=== PATIENT | male | born 1990 | race Caucasian/White ===

== ENCOUNTER 2017-09-01 21:08 | Emergency (ER) | payer OTHER ==
[2017-09-01 21:13] VITALS: BP 130/85; PULSE 83; RESP 18; TEMP 98.5
--- NOTE | 2017-09-01 22:00 | ED ---
General Adult HPI - General Chief complaint: Skin/Abscess/Foreign Body Stated complaint: Rash Time Seen by Provider: 09/01/17 21:40 Source: patient, RN notes reviewed Mode of arrival: ambulatory Limitations: no limitations - History of Present Illness Initial comments: Patient 27-year-old male presents to the emergency room today with chief complaint of redness swelling to the right side of the forehead. He doesn't that it started day and a half ago. Patient states that it's locally tender. It is there now spread to the hairline. Patient states these areas are not tender. He states started to feel itchy. He denies ever having similar the past. Patient denies any recent fever, chills, shortness of breath, chest pain, back pain, abdominal pain, nausea or vomiting, numbness or tingling, dysuria or hematuria, constipation or diarrhea, headaches or visual changes, or any other complaints. - Related Data Home Medications Medication Instructions Recorded Confirmed metFORMIN HCL [Glucophage] 500 mg PO DAILY 03/02/17 03/02/17 Previous Rx's Medication Instructions Recorded Ondansetron Odt [Zofran ODT] 4 mg PO Q8HR PRN #10 tab 03/02/17 Sulfamethox-Tmp 800-160Mg [Bactrim 1 tab PO Q12HR #20 tab 09/01/17 DS 800-160 mg] Allergies Allergy/AdvReac Type Severity Reaction Status Date / Time No Known Allergies Allergy Verified 09/01/17 21:13 Review of Systems ROS Statement: Those systems with pertinent positive or pertinent negative responses have been documented in the HPI. ROS Other: All systems not noted in ROS Statement are negative. Past Medical History Past Medical History: Diabetes Mellitus, GERD/Reflux History of Any Multi-Drug Resistant Organisms: None Reported Past Surgical History: No Surgical Hx Reported Past Psychological History: No Psychological Hx Reported Smoking Status: Current every day smoker Past Alcohol Use History: None Reported Past Drug Use History: None Reported General Exam - General Exam Comments Initial Comments: General: The patient is awake and alert, in no distress, and does not appear acutely ill. Eye: Pupils are equal, round and reactive to light, extra-ocular movements are intact. No nystagmus. There is normal conjunctiva bilaterally. No signs of icterus. Ears, nose, mouth and throat: There are moist mucous membranes and no oral lesions. Neck: The neck is supple, there is no tenderness or JVD. Musculoskeletal: Normal ROM, no tenderness. Strength 5/5. Sensation intact. Pulses equal bilaterally 2+. Neurological: A&O x 3. CN II-XII intact, There are no obvious motor or sensory deficits. Coordination appears grossly intact. Speech is normal. Skin: There is erythema to the right side of the forehead measuring approximately 2 x 2 centimeters. There is some swelling with yellow crusting over top. There is nontender. Few scattered spot into the hairline on the right. Psychiatric: Cooperative, appropriate mood & affect, normal judgment. Limitations: no limitations Course Vital Signs 09/01/17 21:09 Temperature 98.5 F Pulse Rate 83 Respiratory 18 Rate Blood Pressure 130/85 O2 Sat by Pulse 100 Oximetry Medical Decision Making - Medical Decision Making Signs and symptoms of early shingles were also discussed with the patient. Area is nontender. Supple to suspect impetigo and will be started on antibiotics. Disposition Clinical Impression: Impetigo Disposition: HOME SELF-CARE Condition: Good Instructions: Impetigo (ED) Additional Instructions: Please use medication as discussed. Please follow-up with family doctor in the next 2 days of symptoms have not improved. Please return to emergency room if the symptoms increase or worsen or for any other concerns. Prescriptions: Sulfamethox-Tmp 800-160Mg [Bactrim DS 800-160 mg] 1 tab PO Q12HR #20 tab Is patient prescribed a controlled substance at d/c from ED?: No Referrals: Chuckie Marquez MD [Primary Care Provider] - 1-2 days Time of Disposition: 21:58
== END 2017-09-01 22:08 | disposition home or self-care (01) ==
LOC: EC 21:08
DX: L01.00 Impetigo, unspecified (principal); E11.9 Type 2 diabetes mellitus without complications; F17.200 Nicotine dependence, unspecified, uncomplicated; Z79.84 Long term (current) use of oral hypoglycemic drugs
CPT/HCPCS: 99282

== ENCOUNTER 2017-09-13 19:47 | Emergency (ER) | payer OTHER ==
[2017-09-13 19:56] VITALS: BP 127/66; PULSE 82; RESP 18; TEMP 98.4
[2017-09-13] MEDS ORDERED: KETOROLAC 60 MG/2 ML VIAL IM STA (20:11)
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
--- NOTE | 2017-09-13 20:30 | XR ---
EXAMINATION TYPE: XR elbow complete LT DATE OF EXAM: 09/13/2017 COMPARISON: NONE HISTORY: Elbow pain TECHNIQUE: 3 views FINDINGS: I see no fracture nor dislocation. Joint spaces are normal. There is no sign of elbow joint effusion. IMPRESSION: Negative left elbow exam.
== END 2017-09-13 21:07 | disposition home or self-care (01) ==
LOC: EC 19:47
DX: S50.02XA Contusion of left elbow, initial encounter (principal); E11.9 Type 2 diabetes mellitus without complications; F17.200 Nicotine dependence, unspecified, uncomplicated; Z79.84 Long term (current) use of oral hypoglycemic drugs; W01.0XXA Fall on same level from slipping, tripping and stumbling without subsequent striking against object, initial encounter; Y93.01 Activity, walking, marching and hiking
CPT/HCPCS: 73080; 99283; 96372; J1885

== ENCOUNTER 2017-10-20 16:12 | Emergency (ER) | payer OTHER ==
[2017-10-20 16:26] VITALS: RESP 16
[2017-10-20] MEDS ORDERED: SODIUM CHLORIDE 0.9% 500 ML IV STA (16:30)
[2017-10-20] MEDS ORDERED: SODIUM CHLORIDE 0.9% 1,000 ML IV STA (16:30)
[2017-10-20] MEDS ORDERED: KETOROLAC 30 MG/ML 1 ML VIAL IVP STA (16:36)
--- NOTE | 2017-10-20 16:39 | ED ---
Syncope HPI - General Chief Complaint: Syncope Stated Complaint: SYNCOPE Time Seen by Provider: 10/20/17 16:24 Source: patient, EMS Mode of arrival: EMS Limitations: no limitations - History of Present Illness Initial Comments: 27 years old male has abdominal pain he fell today and he passed out he didn't hit his head against a hard surface according to the EMS he was totally out he be responding to sternal rub for 3-4 minutes after arrival to the ER he is awake alert he is answering questions appropriately he still complaining about pain in the abdomen it's more so on the right side of the abdomen actually is complaining about the pain in the lower abdomen right lower quadrant area and the left lower quadrant area. Been nauseous no vomiting he has no history of surgical interventions of the abdomen - Related Data Home Medications Medication Instructions Recorded Confirmed No Known Home Medications 10/20/17 10/20/17 Allergies Allergy/AdvReac Type Severity Reaction Status Date / Time No Known Allergies Allergy Verified 10/20/17 16:56 Review of Systems ROS Statement: Those systems with pertinent positive or pertinent negative responses have been documented in the HPI. ROS Other: All systems not noted in ROS Statement are negative. Past Medical History Past Medical History: Diabetes Mellitus, GERD/Reflux History of Any Multi-Drug Resistant Organisms: None Reported Past Surgical History: No Surgical Hx Reported Past Psychological History: No Psychological Hx Reported Smoking Status: Current every day smoker Past Alcohol Use History: None Reported Past Drug Use History: None Reported General Exam Limitations: no limitations Course Vital Signs 10/20/17 10/20/17 16:19 16:56 Temperature 99.4 F Pulse Rate 84 94 Respiratory 16 16 Rate Blood Pressure 141/73 120/57 O2 Sat by Pulse 100 99 Oximetry Labs are reviewed along with the imaging head CT is normal CT of the abdomen is on unremarkable as well his C-reactive protein is bit elevated compress metabolic panel is normal chest x-ray ruled out any pneumonia these findings are discussed with the patient he be discharged to follow with family doctor or return to ER if he notices worsening of the symptoms EKG Findings - EKG Comments: EKG Findings:: EKG is normal sinus ventricular rate is 88 AL interval is 174 QRS duration is 1 of 4 QT/QTC 364/440 review of this EKG does not reveal any ST elevation or ST depression Medical Decision Making - Lab Data Result diagrams: 10/20/17 16:25 10/20/17 16:25 Lab Results 10/20/17 10/20/17 10/20/17 Range/Units 16:25 16:25 16:25 WBC 12.9 H (3.8-10.6) k/uL RBC 5.62 (4.30-5.90) m/uL Hgb 16.3 (13.0-17.5) gm/dL Hct 48.4 (39.0-53.0) % MCV 86.1 (80.0-100.0) fL MCH 29.0 (25.0-35.0) pg MCHC 33.7 (31.0-37.0) g/dL RDW 12.1 (11.5-15.5) % Plt Count 268 (150-450) k/uL Neutrophils % 83 % Lymphocytes % 8 % Monocytes % 6 % Eosinophils % 2 % Basophils % 0 % Neutrophils # 10.7 H (1.3-7.7) k/uL Lymphocytes # 1.0 (1.0-4.8) k/uL Monocytes # 0.8 (0-1.0) k/uL Eosinophils # 0.3 (0-0.7) k/uL Basophils # 0.0 (0-0.2) k/uL PT (9.0-12.0) sec INR (<1.2) APTT (22.0-30.0) sec Sodium 135 L (137-145) mmol/L Potassium 4.0 (3.5-5.1) mmol/L Chloride 99 (98-107) mmol/L Carbon Dioxide 27 (22-30) mmol/L Anion Gap 9 mmol/L BUN 10 (9-20) mg/dL Creatinine 0.77 (0.66-1.25) mg/dL Est GFR (CKD-EPI)AfAm >90 (>60 ml/min/1.73 sqM) Est GFR (CKD-EPI)NonAf >90 (>60 ml/min/1.73 sqM) Glucose 219 H (74-99) mg/dL Plasma Lactic Acid Jesu (0.7-2.0) mmol/L Calcium 9.0 (8.4-10.2) mg/dL Total Bilirubin 1.0 (0.2-1.3) mg/dL AST 22 (17-59) U/L ALT 41 (21-72) U/L Alkaline Phosphatase 96 (38-126) U/L Total Creatine Kinase 86 (55-170) U/L CK-MB (CK-2) 0.6 (0.0-2.4) ng/mL CK-MB (CK-2) Rel Index 0.7 Troponin I <0.012 (0.000-0.034) ng/mL C-Reactive Protein (<10.0) mg/L Total Protein 6.8 (6.3-8.2) g/dL Albumin 4.5 (3.5-5.0) g/dL 10/20/17 10/20/17 10/20/17 Range/Units 16:25 16:25 16:25 WBC (3.8-10.6) k/uL RBC (4.30-5.90) m/uL Hgb (13.0-17.5) gm/dL Hct (39.0-53.0) % MCV (80.0-100.0) fL MCH (25.0-35.0) pg MCHC (31.0-37.0) g/dL RDW (11.5-15.5) % Plt Count (150-450) k/uL Neutrophils % % Lymphocytes % % Monocytes % % Eosinophils % % Basophils % % Neutrophils # (1.3-7.7) k/uL Lymphocytes # (1.0-4.8) k/uL Monocytes # (0-1.0) k/uL Eosinophils # (0-0.7) k/uL Basophils # (0-0.2) k/uL PT 10.0 (9.0-12.0) sec INR 1.0 (<1.2) APTT 22.6 (22.0-30.0) sec Sodium (137-145) mmol/L Potassium (3.5-5.1) mmol/L Chloride (98-107) mmol/L Carbon Dioxide (22-30) mmol/L Anion Gap mmol/L BUN (9-20) mg/dL Creatinine (0.66-1.25) mg/dL Est GFR (CKD-EPI)AfAm (>60 ml/min/1.73 sqM) Est GFR (CKD-EPI)NonAf (>60 ml/min/1.73 sqM) Glucose (74-99) mg/dL Plasma Lactic Acid Jesu 1.9 (0.7-2.0) mmol/L Calcium (8.4-10.2) mg/dL Total Bilirubin (0.2-1.3) mg/dL AST (17-59) U/L ALT (21-72) U/L Alkaline Phosphatase (38-126) U/L Total Creatine Kinase (55-170) U/L CK-MB (CK-2) (0.0-2.4) ng/mL CK-MB (CK-2) Rel Index Troponin I (0.000-0.034) ng/mL C-Reactive Protein 18.6 H (<10.0) mg/L Total Protein (6.3-8.2) g/dL Albumin (3.5-5.0) g/dL Disposition Clinical Impression: Syncope, Fall, Abdominal pain Disposition: HOME SELF-CARE Instructions: Abdominal Pain (ED) Additional Instructions: Tylenol 1 g by mouth every 6 hours when necessary Is patient prescribed a controlled substance at d/c from ED?: No Referrals: Chuckie Marquez MD [Primary Care Provider] - 1-2 days
[2017-10-20 16:42] LABS: Basophils % (A) 0 %; Eosinophils # (A) 0.3 k/uL (0-0.7); Eosinophils % (A) 2 %; HCT 48.4 % (39.0-53.0); HGB 16.3 gm/dL (13.0-17.5); Lymphocytes % (A) 8 %; MCHC 33.7 g/dL (31.0-37.0); MCV 86.1 fL (80.0-100.0); Mean Platelet Volume 6.5; Monocytes # (A) 0.8 k/uL (0-1.0); Monocytes % (A) 6 %; Neutrophils # (A) 10.7 k/uL (1.3-7.7); Neutrophils % (A) 83 %; Platelet Count 268 k/uL (150-450); RBC 5.62 m/uL (4.30-5.90); RDW 12.1 % (11.5-15.5); WBC 12.9 k/uL (3.8-10.6)
[2017-10-20 16:51] LABS: Partial Thromboplastin Time 22.6 sec (22.0-30.0)
[2017-10-20 16:54] LABS: ALT 41 U/L (21-72); AST 22 U/L (17-59); Albumin 4.5 g/dL (3.5-5.0); Alkaline Phosphatase 96 U/L (38-126); Anion Gap 9 mmol/L; Blood Urea Nitrogen 10 mg/dL (9-20); Carbon Dioxide 27 mmol/L (22-30); Chloride 99 mmol/L (98-107); Glucose 219 mg/dL (74-99); Sodium 135 mmol/L (137-145); Total Protein 6.8 g/dL (6.3-8.2)
[2017-10-20 16:57] LABS: Creatine Kinase 86 U/L (55-170)
[2017-10-20 17:10] LABS: Creatine Kinase MB 0.6 ng/mL (0.0-2.4); Troponin I <0.012 ng/mL (0.000-0.034)
--- NOTE | 2017-10-20 17:53 | CT ---
EXAMINATION TYPE: CT brain wo con DATE OF EXAM: 10/20/2017 COMPARISON: None HISTORY: Headache x [address] DLP: 1171 mGycm. Automated Exposure Control for Dose Reduction was Utilized. TECHNIQUE: CT scan of the head is performed without contrast. FINDINGS: Multiple axial sections were obtained of the brain with no contrast. Ventricles and sulci appear normal. There is no mass effect nor midline shift. There is no sign of in tracranial hemorrhage. The calvarium is intact. Impression negative CT scan of the brain.
--- NOTE | 2017-10-20 17:57 | CT ---
EXAMINATION TYPE: CT abdomen pelvis w con DATE OF EXAM: 10/20/2017 COMPARISON: 03/02/2017 HISTORY: Generalized abdominal pain x [address] DLP: 1246 mGycm Automated exposure control for dose reduction was used. TECHNIQUE: Helical acquisition of images was performed from the lung bases through the pelvis. CONTRAST: Performed without Oral Contrast and with IV Contrast, patient injected with 100 mL of Isovue 300. FINDINGS: There is mild interstitial density at the posterior lung bases. There is no pleural effusion. There i s decreased density throughout the liver consistent with fatty infiltration. The bile ducts are not d ilated. Gallbladder appears normal. Spleen and pancreas appear normal. There is no adrenal mass. Kidneys show satisfactory contrast opacification. There is no hydronephrosi s. There is one semicircular cortical cyst medial right kidney. There is no retroperitoneal adenopath y. There is no ascites. The appendix appears normal. There is no intestinal wall thickening. There ar e no dilated loops. Bladder distends smoothly. There is no pelvic mass. Bony structures are intact. IMPRESSION: NORMAL APPENDIX. FATTY INFILTRATION OF THE LIVER. NO ADVERSE CHANGE COMPARED TO OLD EXAM.
--- NOTE | 2017-10-20 17:58 | XR ---
EXAMINATION TYPE: XR chest 2V DATE OF EXAM: 10/20/2017 COMPARISON: 12/27/2012 HISTORY: Syncope TECHNIQUE: Frontal and lateral views of the chest are obtained. FINDINGS: Heart and mediastinum are normal. Lungs are clear. Diaphragm is normal. Bony thorax is int act. The pulmonary vascularity is normal. IMPRESSION: Normal chest. No change.
[2017-10-20 19:10] VITALS: BP 132/68; PULSE 68; TEMP 98.3
== END 2017-10-20 19:10 | disposition home or self-care (01) ==
LOC: EC 16:12
DX: R55 Syncope and collapse (principal); R10.31 Right lower quadrant pain; R10.32 Left lower quadrant pain; F17.200 Nicotine dependence, unspecified, uncomplicated; W19.XXXA Unspecified fall, initial encounter
CPT/HCPCS: 99285; 36415; 93005; 80053; 82550; 82553; 83605; 84484; 85025; 85610; 85730; 86140; 87040; 71046; 70450; 74177; 96374; 96361 ×3; J1885; Q9967

== ENCOUNTER 2018-01-13 14:57 | Emergency (ER) | payer OTHER ==
[2018-01-13 15:12] LABS: Glucose,Whole Blood 293 mg/dL (75-99)
[2018-01-13] MEDS ORDERED: SODIUM CHLORIDE 0.9% 1,000 ML IV ONE (15:15)
--- NOTE | 2018-01-13 15:23 | ED ---
Chest Pain HPI - General Chief Complaint: Chest Pain Stated Complaint: CHEST PAIN Time Seen by Provider: 01/13/18 15:06 Source: patient, EMS, RN notes reviewed Mode of arrival: EMS Limitations: no limitations - History of Present Illness Initial Comments: [id number] male presents emergency Department chief complaint of right-sided chest pain a 1 hour prior arrival. Patient states that nothing makes the pain worse he denies any pleuritic chest pain or shortness of breath. Patient states that he believes he is having a heart attack and he points to the right side of his chest stating that his heart is hurting. Patient denies any nausea , vomiting, diarrhea constipation. Denies fevers or chills no URI symptoms. Patient states he presses over the chest it does worsen. Patient states he has no cardiac history he has a known diabetic which she states is now is well- controlled. Patient denies any family history of early cardiac disease. - Related Data Home Medications Medication Instructions Recorded Confirmed metFORMIN HCL 1,000 mg PO DAILY 01/13/18 01/13/18 Allergies Allergy/AdvReac Type Severity Reaction Status Date / Time No Known Allergies Allergy Verified 01/13/18 15:25 Review of Systems ROS Statement: Those systems with pertinent positive or pertinent negative responses have been documented in the HPI. ROS Other: All systems not noted in ROS Statement are negative. EKG Findings - EKG Comments: EKG Findings:: EKG performed at 15:07 normal sinus rhythm with a rate of 87 CA 162 QRS 106 QT/QTC 380/466 Past Medical History Past Medical History: Diabetes Mellitus, GERD/Reflux History of Any Multi-Drug Resistant Organisms: None Reported Past Surgical History: No Surgical Hx Reported Past Psychological History: No Psychological Hx Reported Smoking Status: Current every day smoker Past Alcohol Use History: None Reported Past Drug Use History: None Reported General Exam Limitations: no limitations General appearance: alert, in no apparent distress Head exam: Present: atraumatic, normocephalic, normal inspection Eye exam: Present: normal appearance, PERRL, EOMI. Absent: scleral icterus, conjunctival injection, periorbital swelling ENT exam: Present: normal exam, normal oropharynx, mucous membranes moist Neck exam: Present: normal inspection. Absent: tenderness, meningismus, lymphadenopathy Respiratory exam: Present: normal lung sounds bilaterally, chest wall tenderness. Absent: respiratory distress, wheezes, rales, rhonchi, stridor Cardiovascular Exam: Present: regular rate, normal rhythm, normal heart sounds. Absent: systolic murmur, diastolic murmur, rubs, gallop, clicks GI/Abdominal exam: Present: soft, normal bowel sounds. Absent: distended, tenderness, guarding, rebound, rigid Neurological exam: Present: alert, oriented X3, CN II-XII intact Skin exam: Present: warm, dry, intact, normal color. Absent: rash Course Vital Signs 01/13/18 01/13/18 01/13/18 14:58 15:07 16:51 Temperature 99.7 F H 97.8 F Pulse Rate 86 80 Pulse Rate [ 90 [place] Head ] Respiratory 18 16 Rate Blood Pressure 135/85 126/85 O2 Sat by Pulse 100 100 Oximetry Chest Pain MDM - MDM 27-year-old male presented emergency from for right-sided chest pain. Patient stated he felt like he was having a heart attack he has no cardiac history is known diabetic. Patient has only right-sided chest pain which is slightly reproducible. Patient had EKG, lab work which did show mild hyperglycemia otherwise no other abnormality's. Patient's chest pain is atypical and felt not to be cardiac in nature. Patient be discharged advised take anti- inflammatories and follow-up with PCP return parameters were discussed. Disposition Clinical Impression: Atypical chest pain, Chest wall pain Disposition: HOME SELF-CARE Condition: Stable Instructions: Chest Pain (ED) Additional Instructions: Please return to the Emergency Department if symptoms worsen or any other concerns. Is patient prescribed a controlled substance at d/c from ED?: No Referrals: Chuckie Marquez MD [Primary Care Provider] - 1-2 days Time of Disposition: 17:15
[2018-01-13 15:30] LABS: Basophils # (A) 0.1 k/uL (0-0.2); Basophils % (A) 1 %; Eosinophils # (A) 0.1 k/uL (0-0.7); Eosinophils % (A) 1 %; HCT 47.1 % (39.0-53.0); HGB 15.6 gm/dL (13.0-17.5); Lymphocytes # (A) 2.2 k/uL (1.0-4.8); Lymphocytes % (A) 23 %; MCH 29.5 pg (25.0-35.0); MCHC 33.1 g/dL (31.0-37.0); MCV 89.2 fL (80.0-100.0); Mean Platelet Volume 6.4; Monocytes # (A) 0.6 k/uL (0-1.0); Monocytes % (A) 6 %; Neutrophils # (A) 6.2 k/uL (1.3-7.7); Neutrophils % (A) 68 %; Platelet Count 297 k/uL (150-450); RBC 5.28 m/uL (4.30-5.90); WBC 9.2 k/uL (3.8-10.6)
[2018-01-13 15:41] LABS: ALT 42 U/L (21-72); AST 29 U/L (17-59); Albumin 4.8 g/dL (3.5-5.0); Alkaline Phosphatase 83 U/L (38-126); Anion Gap 10 mmol/L; Blood Urea Nitrogen 11 mg/dL (9-20); Calcium 9.6 mg/dL (8.4-10.2); Carbon Dioxide 23 mmol/L (22-30); Chloride 102 mmol/L (98-107); Glucose 301 mg/dL (74-99); Lipase 131 U/L (23-300); Potassium 4.4 mmol/L (3.5-5.1); Sodium 135 mmol/L (137-145); Total Bilirubin 0.8 mg/dL (0.2-1.3); Total Protein 7.5 g/dL (6.3-8.2)
--- NOTE | 2018-01-13 16:06 | XR ---
EXAMINATION TYPE: XR chest 2V DATE OF EXAM: 01/13/2018 COMPARISON: 10/20/2017 INDICATION: History of CT, chest pain TECHNIQUE: Frontal and lateral views of the chest are obtained. FINDINGS: The heart size is normal. The pulmonary vasculature is normal. The lungs are clear. IMPRESSION: 1. No acute pulmonary process.
[2018-01-13 16:52] VITALS: BP 126/85; PULSE 80; RESP 16; TEMP 97.8
[2018-01-13 17:04] LABS: Amphetamine Screen,Urine Not Detected (NotDetected); Barbiturate Screen,Urine Not Detected (NotDetected); Benzodiazepines Screen,Urine Not Detected (NotDetected); Cocaine Screen,Urine Not Detected (NotDetected); Methadone Screen, Urine Not Detected (NotDetected); Opiate Screen,Urine Not Detected (NotDetected); Oxycodone Screen, Urine Not Detected (NotDetected); Phencyclidine Screen,Urine Not Detected (NotDetected); Tricyclic Antidepressant,Urine Not Detected (NotDetected); Urn Cannabinoid Scrn Not Detected (NotDetected)
[2018-01-13 17:15] LABS: Glucose,Whole Blood 267 mg/dL (75-99)
== END 2018-01-13 17:27 | disposition home or self-care (01) ==
LOC: EC 14:57
DX: R07.89 Other chest pain (principal); E11.65 Type 2 diabetes mellitus with hyperglycemia; F17.200 Nicotine dependence, unspecified, uncomplicated; Z79.84 Long term (current) use of oral hypoglycemic drugs
CPT/HCPCS: 36415; 71046; 80053; 80306; 83690; 84484; 85025; 93005; 96360; 99285

== ENCOUNTER 2018-02-01 17:44 | Emergency (ER) | payer OTHER ==
--- NOTE | 2018-02-01 19:46 | XR ---
PROCEDURE: XR knee complete RT 3V DATE AND TIME: 02/01/2018 6:59 PM CLINICAL INDICATION: Injury, Pain TECHNIQUE: Department protocol. 3V COMPARISON: 01/21/2018 FINDINGS: There is no fracture or malalignment. The soft tissues are unremarkable. IMPRESSION: NO ACUTE PROCESS.
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
[2018-02-01 19:55] VITALS: BP 122/73; PULSE 80; RESP 15; TEMP 97.8
== END 2018-02-01 20:08 | disposition home or self-care (01) ==
LOC: EC 17:44
DX: S80.01XA Contusion of right knee, initial encounter (principal); E11.9 Type 2 diabetes mellitus without complications; F17.200 Nicotine dependence, unspecified, uncomplicated; Z79.4 Long term (current) use of insulin; V89.2XXA Person injured in unspecified motor-vehicle accident, traffic, initial encounter; Y92.410 Unspecified street and highway as the place of occurrence of the external cause
CPT/HCPCS: 99284

== ENCOUNTER 2018-04-18 22:02 | Emergency (ER) | payer OTHER ==
[2018-04-18 22:25] VITALS: BP 145/76; PULSE 87; RESP 20; TEMP 98.6
[2018-04-18] MEDS ORDERED: ACET/COD 300 MG/30 MG STARTER PACK 6 TAB BTL PO STA (23:40)
[2018-04-18] MEDS ORDERED: IBUPROFEN 400 MG TAB PO STA (23:40)
[2018-04-18] MEDS ORDERED: PENICILLIN VK 500MG STARTER 4 TAB BTL PO STA (23:40)
[2018-04-18] MEDS ORDERED: Acetaminophen-Codeine 300-30mg TAB PO STA (23:40)
[2018-04-18] MEDS ORDERED: PENICILLIN V POTASSIUM 250 MG TAB PO STA (23:40)
--- NOTE | 2018-04-18 23:41 | ED ---
ENT HPI - General Chief complaint: Dental/Oral Stated complaint: dental Time Seen by Provider: 04/18/18 23:17 Source: patient, family, RN notes reviewed, old records reviewed Mode of arrival: ambulatory Limitations: no limitations - History of Present Illness Initial comments: This is a 27-year-old male the ER for evaluation presents today for evaluation of dental pain. Patient has history of dental caries and dental abscess. Patient presents today with for pain control, denies fever. Patient has no other complaints MD complaint: tooth pain -: days(s) Location: other (Right side of mouth) Severity: moderate Severity scale (1-10): 4 Quality: aching Consistency: constant Improves with: none Worsens with: none Context-Epistaxis: other Context- Dental: history of dental caries, poor dental care Context- Ear: other (None) Associated Symptoms: gum swelling, toothache - Related Data Home Medications Medication Instructions Recorded Confirmed metFORMIN HCL 1,000 mg PO BID 01/13/18 02/01/18 Insulin Degludec [Tresiba 20 unit SQ HS 01/21/18 02/01/18 Flextouch U-100] sitaGLIPtin [Januvia] 100 mg PO DAILY 01/21/18 02/01/18 Previous Rx's Medication Instructions Recorded Ibuprofen [Motrin] 600 mg PO Q8HR PRN #30 tab 02/01/18 Naproxen [Naprosyn] 500 mg PO Q12HR #30 tab 04/18/18 Penicillin V Potassium [Pen Vee K] 500 mg PO QID #40 tablet 04/18/18 Allergies Allergy/AdvReac Type Severity Reaction Status Date / Time No Known Allergies Allergy Verified 04/18/18 22:24 Review of Systems ROS Statement: Those systems with pertinent positive or pertinent negative responses have been documented in the HPI. ROS Other: All systems not noted in ROS Statement are negative. Past Medical History Past Medical History: Diabetes Mellitus, GERD/Reflux History of Any Multi-Drug Resistant Organisms: None Reported Past Surgical History: No Surgical Hx Reported Past Psychological History: No Psychological Hx Reported Smoking Status: Current every day smoker Past Alcohol Use History: None Reported Past Drug Use History: None Reported General Exam Limitations: no limitations General appearance: alert, in no apparent distress Head exam: Present: atraumatic, normocephalic, normal inspection Eye exam: Present: normal appearance, PERRL, EOMI. Absent: scleral icterus, conjunctival injection, periorbital swelling ENT exam: Present: normal exam, mucous membranes moist Neck exam: Present: normal inspection. Absent: tenderness, meningismus, lymphadenopathy Respiratory exam: Present: normal lung sounds bilaterally. Absent: respiratory distress, wheezes, rales, rhonchi, stridor Cardiovascular Exam: Present: regular rate, normal rhythm, normal heart sounds. Absent: systolic murmur, diastolic murmur, rubs, gallop, clicks GI/Abdominal exam: Present: soft, normal bowel sounds. Absent: distended, tenderness, guarding, rebound, rigid Extremities exam: Present: normal inspection, full ROM, normal capillary refill. Absent: tenderness, pedal edema, joint swelling, calf tenderness Back exam: Present: normal inspection Neurological exam: Present: alert, oriented X3, CN II-XII intact Psychiatric exam: Present: normal affect, normal mood Skin exam: Present: warm, dry, intact, normal color. Absent: rash Course Vital Signs 04/18/18 22:22 Temperature 98.6 F Pulse Rate 87 Respiratory 20 Rate Blood Pressure 145/76 O2 Sat by Pulse 97 Oximetry Medical Decision Making - Medical Decision Making 27 male the ER for evaluation, patient is a tooth pain with dental abscess. Patient given pain control and antibiotics here in the ER and can be discharged home Disposition Clinical Impression: Dental caries, Dental abscess Disposition: HOME SELF-CARE Condition: Good Instructions (If sedation given, give patient instructions): Dental Abscess (ED ), Dental Caries (ED) Prescriptions: Naproxen [Naprosyn] 500 mg PO Q12HR #30 tab Penicillin V Potassium [Pen Vee K] 500 mg PO QID #40 tablet Is patient prescribed a controlled substance at d/c from ED?: No Referrals: Chuckie Marquez MD [Primary Care Provider] - 1-2 days
== END 2018-04-19 00:01 | disposition home or self-care (01) ==
LOC: EC 22:02
DX: K02.9 Dental caries, unspecified (principal); K04.7 Periapical abscess without sinus; E11.9 Type 2 diabetes mellitus without complications; F17.200 Nicotine dependence, unspecified, uncomplicated; Z79.4 Long term (current) use of insulin
CPT/HCPCS: 99283

== ENCOUNTER 2018-06-29 22:53 | Emergency (ER) | payer OTHER ==
[2018-06-29 23:07] VITALS: BP 130/85; PULSE 92; RESP 18; TEMP 99.2
[2018-06-29] MEDS ORDERED: PENICILLIN V POTASSIUM 250 MG TAB PO STA (23:12)
--- NOTE | 2018-06-29 23:15 | ED ---
ENT HPI - General Chief complaint: ENT Stated complaint: Abcess on jaw Time Seen by Provider: 06/29/18 23:07 Source: patient, RN notes reviewed Mode of arrival: ambulatory Limitations: no limitations - History of Present Illness Initial comments: 28-year-old male presents emergency Department chief complaint right jaw pain. Patient has a known dental issue. Patient states that he is seeing a specialist in [place] for this. Patient states she's had increased swelling and concern for underlying infection again. No fevers no chills. Patient states he felt like his jaw locked up earlier. Patient states that he has been anorexic past which has helped. Patient reports no fever or chills no neck pain or neck stiffness. - Related Data Home Medications Medication Instructions Recorded Confirmed metFORMIN HCL 1,000 mg PO BID 01/13/18 02/01/18 Insulin Degludec [Tresiba 20 unit SQ HS 01/21/18 02/01/18 Flextouch U-100] sitaGLIPtin [Januvia] 100 mg PO DAILY 01/21/18 02/01/18 Previous Rx's Medication Instructions Recorded Ibuprofen [Motrin] 600 mg PO Q8HR PRN #30 tab 02/01/18 Naproxen [Naprosyn] 500 mg PO Q12HR #30 tab 04/18/18 Penicillin V Potassium [Pen Vee K] 500 mg PO QID #40 tablet 04/18/18 Penicillin V Potassium [Pen Vee K] 500 mg PO QID #40 tablet 06/29/18 Allergies Allergy/AdvReac Type Severity Reaction Status Date / Time No Known Allergies Allergy Verified 06/29/18 23:07 Review of Systems ROS Statement: Those systems with pertinent positive or pertinent negative responses have been documented in the HPI. ROS Other: All systems not noted in ROS Statement are negative. Past Medical History Past Medical History: Diabetes Mellitus, GERD/Reflux History of Any Multi-Drug Resistant Organisms: None Reported Past Surgical History: No Surgical Hx Reported Past Psychological History: No Psychological Hx Reported Smoking Status: Current every day smoker Past Alcohol Use History: None Reported Past Drug Use History: None Reported General Exam Limitations: no limitations General appearance: alert, in no apparent distress Head exam: Present: atraumatic, normocephalic, normal inspection Eye exam: Present: normal appearance, PERRL, EOMI. Absent: scleral icterus, conjunctival injection, periorbital swelling ENT exam: Present: normal exam, mucous membranes moist. Absent: normal oropharynx (Tenderness the right lower jawline, noted drainable abscess in the oral pharynx) Neck exam: Present: normal inspection. Absent: tenderness, meningismus, lymphadenopathy Respiratory exam: Present: normal lung sounds bilaterally. Absent: respiratory distress, wheezes, rales, rhonchi, stridor Cardiovascular Exam: Present: regular rate, normal rhythm, normal heart sounds. Absent: systolic murmur, diastolic murmur, rubs, gallop, clicks Course Vital Signs 06/29/18 23:03 Temperature 99.2 F Pulse Rate 92 Respiratory 18 Rate Blood Pressure 130/85 O2 Sat by Pulse 97 Oximetry Medical Decision Making - Medical Decision Making 28-year-old male presented for dental pain. Patient be treated with penicillin for Dental infection. Patient will follow-up with his dental specialist and return for any worsening symptoms. Disposition Clinical Impression: Dental infection Disposition: HOME SELF-CARE Condition: Stable Instructions (If sedation given, give patient instructions): Dental Abscess (E D) Additional Instructions: Please return to the Emergency Department if symptoms worsen or any other concerns. Prescriptions: Penicillin V Potassium [Pen Vee K] 500 mg PO QID #40 tablet Is patient prescribed a controlled substance at d/c from ED?: No Referrals: Chuckie Marquez MD [Primary Care Provider] - 1-2 days Time of Disposition: 23:14
== END 2018-06-29 23:27 | disposition home or self-care (01) ==
LOC: EC 22:53
DX: K04.7 Periapical abscess without sinus (principal); E11.9 Type 2 diabetes mellitus without complications; F17.200 Nicotine dependence, unspecified, uncomplicated; Z79.4 Long term (current) use of insulin
CPT/HCPCS: 99282

== ENCOUNTER 2018-08-07 14:09 | Emergency (ER) | payer OTHER ==
[2018-08-07 14:35] VITALS: BP 158/91; PULSE 77; RESP 18; TEMP 98.5
[2018-08-07] MEDS ORDERED: cefTRIAXone 1,000 MG VIAL (IM USE) IM STA (15:45)
--- NOTE | 2018-08-07 15:50 | ED ---
ENT HPI - General Chief complaint: Dental/Oral Stated complaint: Dental pain Time Seen by Provider: 08/07/18 15:34 Source: patient, RN notes reviewed Mode of arrival: ambulatory Limitations: no limitations - History of Present Illness Initial comments: 28-year-old male presented emergency department for dental pain. Patient states that he's had ongoing dental issues. Patient states that has worsened and last 2440 hrs. Patient states he was supposed be taking a penicillin states that he has not been taken as directed. Patient states he has been referred to oral surgery. Patient reports no fevers or chills. Mild right-sided facial pain, mild swelling noted. - Related Data Home Medications Medication Instructions Recorded Confirmed metFORMIN HCL 1,000 mg PO BID 01/13/18 02/01/18 Insulin Degludec [Tresiba 20 unit SQ HS 01/21/18 02/01/18 Flextouch U-100] sitaGLIPtin [Januvia] 100 mg PO DAILY 01/21/18 02/01/18 Previous Rx's Medication Instructions Recorded Ibuprofen [Motrin] 600 mg PO Q8HR PRN #30 tab 02/01/18 Naproxen [Naprosyn] 500 mg PO Q12HR #30 tab 04/18/18 Penicillin V Potassium [Pen Vee K] 500 mg PO QID #40 tablet 04/18/18 Penicillin V Potassium [Pen Vee K] 500 mg PO QID #40 tablet 06/29/18 Clindamycin HCl 300 mg PO Q6HR #40 cap 08/07/18 Allergies Allergy/AdvReac Type Severity Reaction Status Date / Time No Known Allergies Allergy Verified 08/07/18 14:35 Review of Systems ROS Statement: Those systems with pertinent positive or pertinent negative responses have been documented in the HPI. ROS Other: All systems not noted in ROS Statement are negative. Past Medical History Past Medical History: Diabetes Mellitus, GERD/Reflux History of Any Multi-Drug Resistant Organisms: None Reported Past Surgical History: No Surgical Hx Reported Past Psychological History: No Psychological Hx Reported Smoking Status: Former smoker Past Alcohol Use History: None Reported Past Drug Use History: None Reported General Exam General appearance: alert, in no apparent distress Head exam: Present: atraumatic, normocephalic, normal inspection Eye exam: Present: normal appearance, PERRL, EOMI. Absent: scleral icterus, conjunctival injection, periorbital swelling ENT exam: Present: mucous membranes moist. Absent: normal oropharynx (Moderate right lower jaw swelling, no trismus no drainable abscess) Neck exam: Present: normal inspection, full ROM. Absent: tenderness, meningismus, lymphadenopathy Respiratory exam: Present: normal lung sounds bilaterally. Absent: respiratory distress, wheezes, rales, rhonchi, stridor Cardiovascular Exam: Present: regular rate, normal rhythm, normal heart sounds. Absent: systolic murmur, diastolic murmur, rubs, gallop, clicks Neurological exam: Present: alert, oriented X3, CN II-XII intact, reflexes normal. Absent: motor sensory deficit Skin exam: Present: warm, dry, intact, normal color. Absent: rash Course Vital Signs 08/07/18 14:32 Temperature 98.5 F Pulse Rate 77 Respiratory 18 Rate Blood Pressure 158/91 O2 Sat by Pulse 97 Oximetry Medical Decision Making - Medical Decision Making 28-year-old male presented for abdominal pain. Patient has notable swelling with no drainable abscess. Patient be given a shot of Rocephin, discharge on clindamycin will follow-up with oral surgery as directed. Return parameters were discussed. Disposition Clinical Impression: Toothache, Dental abscess Disposition: HOME SELF-CARE Condition: Stable Instructions (If sedation given, give patient instructions): Dental Abscess (ED) Additional Instructions: Please return to the Emergency Department if symptoms worsen or any other concerns. Prescriptions: Clindamycin HCl 300 mg PO Q6HR #40 cap Is patient prescribed a controlled substance at d/c from ED?: No Referrals: Chuckie Marquez MD [Primary Care Provider] - 1-2 days Time of Disposition: 15:49
== END 2018-08-07 16:47 | disposition home or self-care (01) ==
LOC: EC 14:09
DX: K04.7 Periapical abscess without sinus (principal); E11.9 Type 2 diabetes mellitus without complications; Z79.4 Long term (current) use of insulin; Z87.891 Personal history of nicotine dependence
CPT/HCPCS: 99282; 96372; J0696

== ENCOUNTER 2018-08-08 15:22 | Emergency (ER) | payer OTHER ==
[2018-08-08 15:27] VITALS: BP 118/78; PULSE 95; RESP 18; TEMP 97.3
[2018-08-08] MEDS ORDERED: LIDOCAINE 1% INJ 10MG/ML (20 ML MDV) SQ ONE (15:51)
[2018-08-08] MEDS ORDERED: DIPH,PERTUS(ACELL)TETVAC-LF 0.5 ML VIAL IM ONE (16:15)
--- NOTE | 2018-08-08 16:28 | ED ---
General Adult HPI - General Chief complaint: Wound/Laceration Stated complaint: Finger laceration Time Seen by Provider: 08/08/18 15:30 Source: patient Mode of arrival: ambulatory Limitations: no limitations - History of Present Illness Initial comments: Patient is a 28-year-old male presents emergency Department with a laceration to his left second digit. Patient reports he was using a box printer knife when it accidentally slipped and lacerated his finger. Patient reports only bleeding from the site with no color discoloration. Patient denies any pain radiating from the site of injury. Patient denies any numbness or tingling. Patient denies any foreign body in the site of injury.. Patient reports difficulty flexing his distal phalanges. Patient is unaware of his tetanus status. Patient denies using blood thinners - Related Data Home Medications Medication Instructions Recorded Confirmed metFORMIN HCL 1,000 mg PO BID 01/13/18 02/01/18 Insulin Degludec [Tresiba 20 unit SQ HS 01/21/18 02/01/18 Flextouch U-100] sitaGLIPtin [Januvia] 100 mg PO DAILY 01/21/18 02/01/18 Previous Rx's Medication Instructions Recorded Ibuprofen [Motrin] 600 mg PO Q8HR PRN #30 tab 02/01/18 Naproxen [Naprosyn] 500 mg PO Q12HR #30 tab 04/18/18 Penicillin V Potassium [Pen Vee K] 500 mg PO QID #40 tablet 04/18/18 Penicillin V Potassium [Pen Vee K] 500 mg PO QID #40 tablet 06/29/18 Clindamycin HCl 300 mg PO Q6HR #40 cap 08/07/18 Allergies Allergy/AdvReac Type Severity Reaction Status Date / Time No Known Allergies Allergy Verified 08/08/18 15:24 Review of Systems ROS Statement: Those systems with pertinent positive or pertinent negative responses have been documented in the HPI. ROS Other: All systems not noted in ROS Statement are negative. Past Medical History Past Medical History: Diabetes Mellitus, GERD/Reflux History of Any Multi-Drug Resistant Organisms: None Reported Past Surgical History: No Surgical Hx Reported Past Psychological History: No Psychological Hx Reported Smoking Status: Former smoker Past Alcohol Use History: None Reported Past Drug Use History: None Reported General Exam Limitations: no limitations General appearance: alert, in no apparent distress Head exam: Present: atraumatic, normocephalic, normal inspection Eye exam: Present: normal appearance Pupils: Present: normal accommodation Neck exam: Present: normal inspection Respiratory exam: Present: normal lung sounds bilaterally Cardiovascular Exam: Present: regular rate, normal rhythm, normal heart sounds Left Shoulder Exam: Present: normal inspection, full ROM Upper Arm exam: Present: normal inspection, full ROM Elbow exam: Present: normal inspection, full ROM Forearm Wrist exam: Present: normal inspection, full ROM Hand Wrist exam: Present: full ROM, tenderness (Mild), laceration (2 cm laceration on posterior aspect of the second digit.). Absent: swelling, abrasion, ecchymosis, crepitus Vascular: Present: normal capillary refill, radial pulse, ulnar pulse Back exam: Present: normal inspection Neurological exam: Present: alert, oriented X3 Psychiatric exam: Present: normal affect, normal mood Skin exam: Present: warm, normal color Course Vital Signs 08/08/18 15:24 Temperature 97.3 F L Pulse Rate 95 Respiratory 18 Rate Blood Pressure 118/78 O2 Sat by Pulse 98 Oximetry Procedures - Laceration Laceration #1 Consent Obtained: verbal consent Indication: laceration Site: other (Finger) Size (cm): 2 Description: linear Depth: simple, single layer Anesthetic Used: lidocaine 1% Anesthesia Technique: local infiltration Amount (mls): 10 Pre-repair: irrigated extensively Type of Sutures: nylon Size of Sutures: 4-0 Number of Sutures: 3 Technique: simple, interrupted Patient Tolerated Procedure: well Medical Decision Making - Medical Decision Making Patient is a 28-year-old male presents emergency Department with a laceration on the left second digit. Patient will be given tetanus prophylaxis. Laceration was repaired using 1% lidocaine for anesthetic. Patient advised to follow with primary care. Patient advised to return to emergency department if symptoms worsen. Case discussed with physician. Disposition Clinical Impression: Laceration Disposition: HOME SELF-CARE Condition: Stable Instructions (If sedation given, give patient instructions): Laceration (DC) Additional Instructions: Please follow proper wound care instructions. Please follow with primary care please return to emergency department if symptoms worsen. Alternate between Tylenol and ibuprofen for pain control. Is patient prescribed a controlled substance at d/c from ED?: No Referrals: Chuckie Marquez MD [Primary Care Provider] - 1-2 days Time of Disposition: 16:23
== END 2018-08-08 18:12 | disposition home or self-care (01) ==
LOC: EC 15:22
DX: S61.211A Laceration without foreign body of left index finger without damage to nail, initial encounter (principal); Z23 Encounter for immunization; E11.9 Type 2 diabetes mellitus without complications; Z87.891 Personal history of nicotine dependence; Z79.4 Long term (current) use of insulin; W26.0XXA Contact with knife, initial encounter; Y92.009 Unspecified place in unspecified non-institutional (private) residence as the place of occurrence of the external cause
CPT/HCPCS: 90715; 99282; 12001; 90471; J2001

== ENCOUNTER 2018-10-14 18:51 | Inpatient (IN) | payer OTHER ==
[2018-10-14] MEDS ORDERED: cefTRIAXone IN SWFI 1,000 MG/10 ML SYRINGE IVP STA (20:04)
[2018-10-14] MEDS ORDERED: VANCOMYCIN 2,000 MG in SODIUM CHLORIDE 0.9% 500 ML 500 ML IVPB STA (20:04)
[2018-10-14 20:42] LABS: HCT 48.4 % (39.0-53.0); HGB 15.7 gm/dL (13.0-17.5); MCH 29.3 pg (25.0-35.0); MCHC 32.5 g/dL (31.0-37.0); MCV 90.3 fL (80.0-100.0); Platelet Count 339 k/uL (150-450); RBC 5.35 m/uL (4.30-5.90); RDW 14.1 % (11.5-15.5); WBC 16.6 k/uL (3.8-10.6)
[2018-10-14 20:43] LABS: ALT 33 U/L (21-72); AST 23 U/L (17-59); African American GFR (CKD) >90 (>60 ml/min/1.73 sqM); Albumin 4.9 g/dL (3.5-5.0); Alkaline Phosphatase 91 U/L (38-126); Anion Gap 15 mmol/L; Blood Urea Nitrogen 13 mg/dL (9-20); Calcium 9.5 mg/dL (8.4-10.2); Carbon Dioxide 23 mmol/L (22-30); Chloride 96 mmol/L (98-107); Glucose 383 mg/dL (74-99); Potassium 4.6 mmol/L (3.5-5.1); Sodium 134 mmol/L (137-145); Total Bilirubin 0.7 mg/dL (0.2-1.3); Total Protein 7.8 g/dL (6.3-8.2)
[2018-10-14] MEDS ORDERED: SODIUM CHLORIDE 0.9% 1,000 ML IV STA ×2 (21:01→23:36)
--- NOTE | 2018-10-14 21:59 | CT ---
EXAMINATION TYPE: CT facial bones w con, CT soft tissue neck w con DATE OF EXAM: 10/14/2018 COMPARISON: None HISTORY: PT had Rt jaw sx 10/12 to remove abscess. Pt c/o pain, SOB and difficulty swallowing CT DLP: 878.4 (accession [id number]), 306.4 (accession [id number]) mGycm Automated exposure control for dose reduction was used. CONTRAST: CT scan of the facial bones is performed with IV Contrast, patient injected with 100 mL of Isovue 300 . TECHNIQUE: CT scan of the sinuses is performed without contrast, axial images are obtained, coronal r eformatted images are also reviewed. FINDINGS: There is a defect of the right maxilla measuring at least 3.4 cm compatible with the recent surgery to remove an abscess of the maxilla. Packing material is seen with surrounding fluid collect ion at an oblique angle measures up to 3.9 cm in anterior posterior dimension and 4.0 cm in cranial c audal dimension with a draining tract toward the skin surface that does not extend all the way to the skin surface. There is overlying soft tissue swelling seen. Multiple prominent lymph nodes of the ri ght. Submandibular and periparotid as well as of the jugulodigastric region are likely reactive. Left -sided the mandible is unremarkable as well as the maxilla. Old fracture deformity of the maxillary s pine. No significant paranasal sinus disease. Mastoid air cells are well aerated. Airway is maintaine d. Thyroid gland is grossly unremarkable. Parotid glands are symmetric with small lymph nodes. Skin t hickening is seen over the inflammatory change on the right. Cervical spine appears intact. Temporoma ndibular joints are unremarkable. Within the remainder of the lower visualized portions of the CT soft tissue neck there is a conventio nal branch pattern of the aortic arch. The visualized lungs are well aerated. Again cervical spine ap pears intact. Trachea and its visualized portions is patent and well aerated. No superior mediastinal adenopathy. Thyroid gland is unremarkable. IMPRESSION: Postsurgical change of the right maxilla with osseous defect in surgical packing material . Surrounding fluid collection/residual abscess with extensive overlying soft tissue swelling, subcut aneous edema, and skin thickening as well as likely reactive adenopathy. This residual abscess measur es up to 3.9 x 4.0 cm.
[2018-10-14] MEDS ORDERED: INSULIN REGULAR 100 UNIT/ML VIAL IV ONE (22:44)
--- NOTE | 2018-10-14 23:28 | ED ---
General Adult HPI - General Source: patient Mode of arrival: ambulatory Limitations: no limitations <Oni Soto - Last Filed: 10/14/18 23:07> <Jensen Neely - Last Filed: 10/15/18 01:54> - General Chief complaint: Recheck/Abnormal Lab/Rx Stated complaint: post jaw surgery/SOB Time Seen by Provider: 10/14/18 19:38 - History of Present Illness Initial comments: Patient is a 28-year-old male presents emergency Department with right-sided facial swelling. Patient had a an periodontist procedure performed yesterday for a removal of an apical abscess. Patient reports the pain and swelling has increased since yesterday. Patient also reports tightness along the right side of the neck. Patient reports that he has difficulty opening his mouth but denies dysphagia. Patient denies drooling, , dyspnea, chest pain, shortness of breath or chest tightness. Patient is given [place] for pain and amoxicillin. Patient denies headaches, nausea, vomiting, chills or fever. (Oni Soto) - Related Data Home Medications Medication Instructions Recorded Confirmed metFORMIN HCL 1,000 mg PO BID 01/13/18 10/14/18 Amoxicillin 500 mg PO TID 10/14/18 10/14/18 HYDROcodone/APAP 5-325MG [[place] 1 tab PO Q6HR PRN 10/14/18 10/14/18 5-325] Allergies Allergy/AdvReac Type Severity Reaction Status Date / Time No Known Allergies Allergy Verified 10/14/18 23:22 Review of Systems ROS Other: All systems not noted in ROS Statement are negative. <Oni Soto - Last Filed: 10/14/18 23:07> ROS Other: All systems not noted in ROS Statement are negative. <Jensen Neely - Last Filed: 10/15/18 01:54> ROS Statement: Those systems with pertinent positive or pertinent negative responses have been documented in the HPI. Past Medical History Past Medical History: Diabetes Mellitus, GERD/Reflux History of Any Multi-Drug Resistant Organisms: None Reported Past Surgical History: No Surgical Hx Reported Past Psychological History: No Psychological Hx Reported Smoking Status: Former smoker Past Alcohol Use History: None Reported Past Drug Use History: None Reported <Oni Soto - Last Filed: 10/14/18 23:07> General Exam Limitations: no limitations General appearance: alert, in no apparent distress Head exam: Present: atraumatic, normocephalic, normal inspection Eye exam: Present: normal appearance, PERRL, EOMI Pupils: Present: normal accommodation ENT exam: Present: mucous membranes moist, TM's normal bilaterally, normal external ear exam. Absent: normal exam (Right-sided facial swelling near the m andible), normal oropharynx (Limited visibility and oral cavity due to recent surgery.) Neck exam: Present: normal inspection, full ROM. Absent: lymphadenopathy Respiratory exam: Present: normal lung sounds bilaterally Cardiovascular Exam: Present: regular rate, normal rhythm, normal heart sounds Extremities exam: Present: normal inspection, full ROM Back exam: Present: normal inspection, full ROM Neurological exam: Present: alert, oriented X3 Psychiatric exam: Present: normal affect, normal mood Skin exam: Present: warm, intact, normal color <Oni Soto - Last Filed: 10/14/18 23:07> Course Vital Signs 10/14/18 10/14/18 19:05 23:29 Temperature 98.6 F Pulse Rate 91 89 Respiratory 18 16 Rate Blood Pressure 138/83 134/83 O2 Sat by Pulse 98 Oximetry Medical Decision Making - Lab Data Result diagrams: 10/14/18 20:22 10/14/18 20:22 <Oni Soto - Last Filed: 10/14/18 23:07> - Lab Data Result diagrams: 10/14/18 20:22 10/14/18 20:22 <Jensen Neely - Last Filed: 10/15/18 01:54> - Medical Decision Making Patient is a 28-year-old male presenting to emergency Department for right-sided facial swelling. Labs are showing leukocytosis and elevated lactate of 3.3. Patient is hyperglycemic at 380. Patient has poor control of his diabetes. Patient is only taking metformin but no insulin. Patient was given morphine for pain, 2 L of fluids based nodule bodyweight, Rocephin, vancomycin and a milligrams of regular insulin. Patient will be admitted for further management. CT of facial bones and soft neck is indicative of postsurgical changes on the right maxilla with osseous defect and surgical packing material. Surrounding fluid collection, residual abscess with extensive overlying soft tissue swelling, subcutaneous edema and skin thickening as well as likely reactive ad enopathy. The residual abscess measures up to 3.94.0 cm. case discussed with Dr. Neely who is in agreement with the treatment plan. Dr. Marquez is admitted physician. (Oni Soto) I saw this patient in conjunction with the physician hotel assistant manager. I performed independent history and physical exam. Agree with case management. (Jensen Neely) - Lab Data Lab Results 10/14/18 10/14/18 10/14/18 Range/Units 20:22 20:22 20:22 WBC 16.6 H (3.8-10.6) k/uL RBC 5.35 (4.30-5.90) m/uL Hgb 15.7 (13.0-17.5) gm/dL Hct 48.4 (39.0-53.0) % MCV 90.3 (80.0-100.0) fL MCH 29.3 (25.0-35.0) pg MCHC 32.5 (31.0-37.0) g/dL RDW 14.1 (11.5-15.5) % Plt Count 339 (150-450) k/uL Sodium 134 L (137-145) mmol/L Potassium 4.6 (3.5-5.1) mmol/L Chloride 96 L (98-107) mmol/L Carbon Dioxide 23 (22-30) mmol/L Anion Gap 15 mmol/L BUN 13 (9-20) mg/dL Creatinine 0.55 L (0.66-1.25) mg/dL Est GFR (CKD-EPI)AfAm >90 (>60 ml/min/1.73 sqM) Est GFR (CKD-EPI)NonAf >90 (>60 ml/min/1.73 sqM) Glucose 383 H (74-99) mg/dL POC Glucose (mg/dL) (75-99) mg/dL POC Glu Commercial Insurance Underwriter ID Lactic Ac Sepsis Rflx Plasma Lactic Acid Jesu 3.3 H* (0.7-2.0) mmol/L Calcium 9.5 (8.4-10.2) mg/dL Total Bilirubin 0.7 (0.2-1.3) mg/dL AST 23 (17-59) U/L ALT 33 (21-72) U/L Alkaline Phosphatase 91 (38-126) U/L Total Protein 7.8 (6.3-8.2) g/dL Albumin 4.9 (3.5-5.0) g/dL 10/14/18 10/14/18 10/15/18 Range/Units 20:46 23:24 00:01 WBC (3.8-10.6) k/uL RBC (4.30-5.90) m/uL Hgb (13.0-17.5) gm/dL Hct (39.0-53.0) % MCV (80.0-100.0) fL MCH (25.0-35.0) pg MCHC (31.0-37.0) g/dL RDW (11.5-15.5) % Plt Count (150-450) k/uL Sodium (137-145) mmol/L Potassium (3.5-5.1) mmol/L Chloride (98-107) mmol/L Carbon Dioxide (22-30) mmol/L Anion Gap mmol/L BUN (9-20) mg/dL Creatinine (0.66-1.25) mg/dL Est GFR (CKD-EPI)AfAm (>60 ml/min/1.73 sqM) Est GFR (CKD-EPI)NonAf (>60 ml/min/1.73 sqM) Glucose (74-99) mg/dL POC Glucose (mg/dL) 282 H (75-99) mg/dL POC Glu Commercial Insurance Underwriter ID Karol Beaver A Lactic Ac Sepsis Rflx Y Plasma Lactic Acid Jesu 1.9 (0.7-2.0) mmol/L Calcium (8.4-10.2) mg/dL Total Bilirubin (0.2-1.3) mg/dL AST (17-59) U/L ALT (21-72) U/L Alkaline Phosphatase (38-126) U/L Total Protein (6.3-8.2) g/dL Albumin (3.5-5.0) g/dL 10/15/18 Range/Units 00:23 WBC (3.8-10.6) k/uL RBC (4.30-5.90) m/uL Hgb (13.0-17.5) gm/dL Hct (39.0-53.0) % MCV (80.0-100.0) fL MCH (25.0-35.0) pg MCHC (31.0-37.0) g/dL RDW (11.5-15.5) % Plt Count (150-450) k/uL Sodium (137-145) mmol/L Potassium (3.5-5.1) mmol/L Chloride (98-107) mmol/L Carbon Dioxide (22-30) mmol/L Anion Gap mmol/L BUN (9-20) mg/dL Creatinine (0.66-1.25) mg/dL Est GFR (CKD-EPI)AfAm (>60 ml/min/1.73 sqM) Est GFR (CKD-EPI)NonAf (>60 ml/min/1.73 sqM) Glucose (74-99) mg/dL POC Glucose (mg/dL) 239 H (75-99) mg/dL POC Glu Commercial Insurance Underwriter ID Karol Beaver A Lactic Ac Sepsis Rflx Plasma Lactic Acid Jesu (0.7-2.0) mmol/L Calcium (8.4-10.2) mg/dL Total Bilirubin (0.2-1.3) mg/dL AST (17-59) U/L ALT (21-72) U/L Alkaline Phosphatase (38-126) U/L Total Protein (6.3-8.2) g/dL Albumin (3.5-5.0) g/dL Disposition Is patient prescribed a controlled substance at d/c from ED?: No Time of Disposition: 23:40 <Oni Soto - Last Filed: 10/14/18 23:07> <Jensen Neely - Last Filed: 10/15/18 01:54> Clinical Impression: Abscess, dental, Hyperglycemia Disposition: ADMITTED IP TO THIS HOSP Condition: Stable Instructions (If sedation given, give patient instructions): Abscess (ED) Additional Instructions: Patient will be admitted. Referrals: Chuckie Marquez MD [Primary Care Provider] - 1-2 days
[2018-10-14 23:31] LABS: Glucose,Whole Blood 282 mg/dL (75-99)
[2018-10-14] MEDS ORDERED: NALOXONE 0.4 MG/ML 1 ML VIAL IV PRN (23:41)
[2018-10-15 00:26] LABS: Glucose,Whole Blood 239 mg/dL (75-99)
[2018-10-15 01:37] VITALS: BMI 29.9
[2018-10-15] MEDS: SODIUM CHLORIDE 0.9% 1,000 ML IV SCH (01:40)
[2018-10-15] MEDS: MORPHINE SULFATE 4 MG/ML SYRINGE IV PRN ×2 (03:00→08:54)
[2018-10-15] MEDS: VANCOMYCIN 1,750 MG in SODIUM CHLORIDE 0.9% 500 ML 500 ML IVPB SCH ×3 (04:56→21:12)
[2018-10-15 07:01] LABS: Appearance,Urine Clear (Clear); Color,Urine Light Yellow; Specific Gravity,Urine 1.007 (1.001-1.035)
[2018-10-15 07:02] LABS: Glucose,Urine (UA) 4+ (Negative); Ketones,Urine 2+ (Negative); Protein,Urine Negative (Negative)
[2018-10-15 07:03] LABS: Bilirubin,Urine Negative (Negative); Blood,Urine Negative (Negative); Leukocyte Esterase,Urine Negative (Negative); Nitrite,Urine Negative (Negative); Urobilinogen,Urine <2.0 mg/dL (<2.0)
[2018-10-15 07:04] LABS: Glucose,Whole Blood 222 mg/dL (75-99)
[2018-10-15] MEDS: INSULIN ASPART (NovoLOG) 100 UNIT/ML VIAL SQ SCH ×4 (09:05→21:02)
[2018-10-15 11:53] LABS: Glucose,Whole Blood 350 mg/dL (75-99)
[2018-10-15 11:55] LABS: Basophils # (A) 0.1 k/uL (0-0.2); Basophils % (A) 1 %; Eosinophils # (A) 0.2 k/uL (0-0.7); Eosinophils % (A) 1 %; HCT 47.9 % (39.0-53.0); HGB 15.6 gm/dL (13.0-17.5); Lymphocytes # (A) 2.6 k/uL (1.0-4.8); Lymphocytes % (A) 18 %; MCH 29.7 pg (25.0-35.0); MCHC 32.5 g/dL (31.0-37.0); MCV 91.5 fL (80.0-100.0); Mean Platelet Volume 6.7; Monocytes # (A) 1.2 k/uL (0-1.0); Monocytes % (A) 9 %; Neutrophils # (A) 10.2 k/uL (1.3-7.7); Neutrophils % (A) 71 %; Platelet Count 334 k/uL (150-450); RBC 5.24 m/uL (4.30-5.90); RDW 13.6 % (11.5-15.5); WBC 14.5 k/uL (3.8-10.6)
[2018-10-15 12:00] LABS: African American GFR (CKD) >90 (>60 ml/min/1.73 sqM); Anion Gap 13 mmol/L; Blood Urea Nitrogen 7 mg/dL (9-20); Calcium 9.4 mg/dL (8.4-10.2); Carbon Dioxide 26 mmol/L (22-30); Chloride 97 mmol/L (98-107); Glucose 320 mg/dL (74-99); Potassium 4.4 mmol/L (3.5-5.1); Sodium 136 mmol/L (137-145)
[2018-10-15] MEDS ORDERED: INSULIN ASPART (NovoLOG) 100 UNIT/ML VIAL SQ SCH (12:30)
--- NOTE | 2018-10-15 13:00 | P.HPIM ---
History of Present Illness H&P Date: 10/15/18 Chief Complaint: Facial swelling and shortness of breath This is a 28-year-old white male well known to the practice. On 10/12/2018, He underwent dental surgery with Dr.Jeevaka Charles ANN at [facility] in [place]. This is for a dental abscess. He was discharged from their care on amoxicillin, Peridex mouthwash, and [place]. He is now most of the history is from his mother due to patient's pain with talking. Yesterday his mother informs me, who is at bedside, that his right face became more and more swollen, he had more increased pain and told his brother he was having shortness of breath. He presented emergency room and [facility]. He had initial lactic acid of 3.3, which was repeated at 1.9. He was found to be maintaining his airway after receiving IV Rocephin and then transitioning to vancomycin. He reports being in significant pain and having fatigue associated with the pain. He is tolerating some soft diet at this point. Denies any chest pains, pressures, or shortness of breath this time. Denies any nausea or vomiting this time. Review of Systems All systems: negative Past Medical History Past Medical History: Diabetes Mellitus, GERD/Reflux History of Any Multi-Drug Resistant Organisms: None Reported Past Surgical History: No Surgical Hx Reported Past Psychological History: No Psychological Hx Reported Smoking Status: Former smoker Past Alcohol Use History: None Reported Past Drug Use History: None Reported Medications and Allergies Home Medications Medication Instructions Recorded Confirmed Type metFORMIN HCL 1,000 mg PO BID 01/13/18 10/14/18 History Amoxicillin 500 mg PO TID 10/14/18 10/14/18 History HYDROcodone/APAP 5-325MG [[place] 1 tab PO Q6HR PRN 10/14/18 10/14/18 History 5-325] Allergies Allergy/AdvReac Type Severity Reaction Status Date / Time No Known Allergies Allergy Verified 10/14/18 23:22 Physical Exam Vitals: Vital Signs Temp Pulse Pulse Resp BP BP Pulse Ox 10/15/18 07:00 97.7 F 78 15 143/90 98 10/15/18 01:15 100.3 F H 82 18 151/91 99 10/14/18 23:29 89 16 134/83 10/14/18 19:05 98.6 F 91 18 138/83 98 Intake and Output 10/14/18 10/15/18 10/15/18 22:59 06:59 14:59 Intake Total 167 Output Total 400 Balance -233 Intake: Intake, IV Titration 167 Amount Vancomycin 1,750 mg In 167 Sodium Chloride 0.9% 500 ml 500 ml @ 167 mls/hr IVPB Q8H [facility] Rx#: [id number] Output: Urine 400 Other: Weight 94.801 kg 94.801 kg GENERAL: Fatigue, appears somnolent and in pain. HEAD: Atraumatic, normocephalic. EYES: Pupils equal round and reactive to light, extraocular movements intact, sclera anicteric, conjunctiva are normal. ENT:nares patent, oropharynx very difficult for him to open due to pain. There is significant pain to palpation of the right mandible. There is no erythema or ecchymosis noted. Edema is mild at this time. NECK: Normal range of motion, supple, no thyromegaly, lymphadenopathy was not found, but palpated very gently due to his significant pain on the right side. LUNGS: Breath sounds clear to auscultation bilaterally and equal. No wheezes rales or rhonchi. HEART: Regular rate and rhythm without murmurs, rubs or gallops.S1S2 Normal ABDOMEN: Soft, nontender, normoactive bowel sounds. No guarding, no rebound. No masses appreciated. EXTREMITIES: Normal range of motion, no pitting or edema. No clubbing or cyanosis. NEUROLOGICAL: Cranial nerves II through XII grossly intact. Each and gait testing were deferred today. PSYCH: Normal mood, normal affect. SKIN: Warm, Dry, normal turgor, no rashes or lesions noted. Results CBC & Chem 7: 10/15/18 11:36 10/15/18 11:36 Labs: Abnormal Lab Results - Last 24 Hours (Table) 10/14/18 10/14/18 10/14/18 Range/Units 20:22 20:22 20:22 WBC 16.6 H (3.8-10.6) k/uL Neutrophils # (1.3-7.7) k/uL Monocytes # (0-1.0) k/uL Sodium 134 L (137-145) mmol/L Chloride 96 L (98-107) mmol/L BUN (9-20) mg/dL Creatinine 0.55 L (0.66-1.25) mg/dL Glucose 383 H (74-99) mg/dL POC Glucose (mg/dL) (75-99) mg/dL Plasma Lactic Acid Jesu 3.3 H* (0.7-2.0) mmol/L Urine Glucose (UA) (Negative) Urine Ketones (Negative) 10/14/18 10/15/18 10/15/18 Range/Units 23:24 00:23 06:15 WBC (3.8-10.6) k/uL Neutrophils # (1.3-7.7) k/uL Monocytes # (0-1.0) k/uL Sodium (137-145) mmol/L Chloride (98-107) mmol/L BUN (9-20) mg/dL Creatinine (0.66-1.25) mg/dL Glucose (74-99) mg/dL POC Glucose (mg/dL) 282 H 239 H (75-99) mg/dL Plasma Lactic Acid Jesu (0.7-2.0) mmol/L Urine Glucose (UA) 4+ H (Negative) Urine Ketones 2+ H (Negative) 10/15/18 10/15/18 10/15/18 Range/Units 07:03 11:36 11:36 WBC 14.5 H (3.8-10.6) k/uL Neutrophils # 10.2 H (1.3-7.7) k/uL Monocytes # 1.2 H (0-1.0) k/uL Sodium 136 L (137-145) mmol/L Chloride 97 L (98-107) mmol/L BUN 7 L (9-20) mg/dL Creatinine (0.66-1.25) mg/dL Glucose 320 H (74-99) mg/dL POC Glucose (mg/dL) 222 H (75-99) mg/dL Plasma Lactic Acid Jesu (0.7-2.0) mmol/L Urine Glucose (UA) (Negative) Urine Ketones (Negative) 10/15/18 Range/Units 11:51 WBC (3.8-10.6) k/uL Neutrophils # (1.3-7.7) k/uL Monocytes # (0-1.0) k/uL Sodium (137-145) mmol/L Chloride (98-107) mmol/L BUN (9-20) mg/dL Creatinine (0.66-1.25) mg/dL Glucose (74-99) mg/dL POC Glucose (mg/dL) 350 H (75-99) mg/dL Plasma Lactic Acid Jesu (0.7-2.0) mmol/L Urine Glucose (UA) (Negative) Urine Ketones (Negative) CT Scan - head: report reviewed (Fluid collection with overlying soft tissue swelling and residual is edema. Residual abscess measuring 3.9 x 4 cm) Thrombosis Risk Factor Assmnt - DVT/VTE Prophylaxis DVT/VTE Prophylaxis: Low risk, early ambulation encouraged - Choose All That Apply Each Factor Represents 1 point: Obesity (BMI >25) Thrombosis Risk Factor Assessment Total Risk Factor Score: 1 Thrombosis Risk Factor Assessment Level: Low Risk Assessment and Plan (1) [place] angina Current Visit: Yes Status: Acute Code(s): K12.2 - CELLULITIS AND ABSCESS OF MOUTH SNOMED Code(s): 486478836 (2) Diabetes mellitus Current Visit: Yes Status: Acute Code(s): E11.9 - TYPE 2 DIABETES MELLITUS WITHOUT COMPLICATIONS SNOMED Code(s): 64637507 (3) Cellulitis and abscess of face Current Visit: Yes Status: Acute Code(s): L03.211 - CELLULITIS OF FACE; L02.01 - CUTANEOUS ABSCESS OF FACE SNOMED Code(s): 472852524 (4) Abscess, dental Current Visit: Yes Status: Acute Code(s): K04.7 - PERIAPICAL ABSCESS WITHOUT SINUS SNOMED Code(s): 568339340 (5) Hyperglycemia Current Visit: Yes Status: Acute Code(s): R73.9 - HYPERGLYCEMIA, UNSPECIFIED SNOMED Code(s): 71736516 Plan: We'll continue on vancomycin for his dental abscess. I will add Zosyn at this time. We'll consult maxillofacial surgery, Dr. Martinez or Charly. Put in a consult for infectious disease. He may need to be transferred down to [facility] as this is where his surgeon was originally. Accu-Cheks, blood scale, hemoglobin A1c, repeat labs in a.m., telemetry, close monitoring of his airway. I'll await clinical services consultant recommendations and reevaluate him in the next 24 hours.
[2018-10-15] MEDS ORDERED: HYDROmorphone 1 MG/ML 1 ML SYRINGE IVP PRN (14:29)
--- NOTE | 2018-10-15 14:32 | P.GSCN ---
History of Present Illness Consult date: 10/15/18 Reason for Consult: Rule out dental abscess Requesting physician: Chuckie Marquez History of present illness: 's 28-year-old white male who on the underwent outpatient dental surgery to remove a previously biopsy-proven cyst of his mandible. The patient's history is coming from the mom whose at the bedside along with the . The patient has a guardian also with his finances but is now able to live on his own. Mom says he's having difficulty talking. Mom reports the patient's brother brought into the emergency room yesterday after he began to have increased pain and reported some shortness of breath. Mom lives out of town. Currently tolerating the soft diet able to drink fluids. Denies any nausea or vomiting at this time Review of Systems see history of present illness Past Medical History Past Medical History: Diabetes Mellitus, GERD/Reflux History of Any Multi-Drug Resistant Organisms: None Reported Past Surgical History: No Surgical Hx Reported Past Psychological History: No Psychological Hx Reported Smoking Status: Former smoker Past Alcohol Use History: None Reported Past Drug Use History: None Reported Medications and Allergies Home Medications Medication Instructions Recorded Confirmed Type metFORMIN HCL 1,000 mg PO BID 01/13/18 10/14/18 History Amoxicillin 500 mg PO TID 10/14/18 10/14/18 History HYDROcodone/APAP 5-325MG [[place] 1 tab PO Q6HR PRN 10/14/18 10/14/18 History 5-325] Allergies Allergy/AdvReac Type Severity Reaction Status Date / Time No Known Allergies Allergy Verified 10/14/18 23:22 Surgical - Exam Vital Signs Temp Pulse Resp BP Pulse Ox 98.6 F 91 18 138/83 98 10/14/18 19:05 10/14/18 19:05 10/14/18 19:05 10/14/18 19:05 10/14/18 19:05 Patient was able to lean back in the bed open his mouth greater than 30 mm. This was difficult. No floor of mouth swelling noted able to palpate the lingual gutters bilaterally with symmetry. Uvula appeared midline. Wounds closed on the right side. No active discharge or pus noted. Teeth appear solid and stable. Extraorally the patient's right face appears more swollen than the left. Able to palpate approximately 1 cm x 2 cm firmness along the outer aspect of the right mandibular body. No lymphadenopathy noted. Patient's bite is normal. Results - Labs 10/15/18 11:36 10/15/18 11:36 Abnormal Lab Results - Last 24 Hours (Table) 10/14/18 10/14/18 10/14/18 Range/Units 20:22 20:22 20:22 WBC 16.6 H (3.8-10.6) k/uL Neutrophils # (1.3-7.7) k/uL Monocytes # (0-1.0) k/uL Sodium 134 L (137-145) mmol/L Chloride 96 L (98-107) mmol/L BUN (9-20) mg/dL Creatinine 0.55 L (0.66-1.25) mg/dL Glucose 383 H (74-99) mg/dL POC Glucose (mg/dL) (75-99) mg/dL Plasma Lactic Acid Jesu 3.3 H* (0.7-2.0) mmol/L Urine Glucose (UA) (Negative) Urine Ketones (Negative) 10/14/18 10/15/18 10/15/18 Range/Units 23:24 00:23 06:15 WBC (3.8-10.6) k/uL Neutrophils # (1.3-7.7) k/uL Monocytes # (0-1.0) k/uL Sodium (137-145) mmol/L Chloride (98-107) mmol/L BUN (9-20) mg/dL Creatinine (0.66-1.25) mg/dL Glucose (74-99) mg/dL POC Glucose (mg/dL) 282 H 239 H (75-99) mg/dL Plasma Lactic Acid Jesu (0.7-2.0) mmol/L Urine Glucose (UA) 4+ H (Negative) Urine Ketones 2+ H (Negative) 10/15/18 10/15/18 10/15/18 Range/Units 07:03 11:36 11:36 WBC 14.5 H (3.8-10.6) k/uL Neutrophils # 10.2 H (1.3-7.7) k/uL Monocytes # 1.2 H (0-1.0) k/uL Sodium 136 L (137-145) mmol/L Chloride 97 L (98-107) mmol/L BUN 7 L (9-20) mg/dL Creatinine (0.66-1.25) mg/dL Glucose 320 H (74-99) mg/dL POC Glucose (mg/dL) 222 H (75-99) mg/dL Plasma Lactic Acid Jesu (0.7-2.0) mmol/L Urine Glucose (UA) (Negative) Urine Ketones (Negative) 10/15/18 Range/Units 11:51 WBC (3.8-10.6) k/uL Neutrophils # (1.3-7.7) k/uL Monocytes # (0-1.0) k/uL Sodium (137-145) mmol/L Chloride (98-107) mmol/L BUN (9-20) mg/dL Creatinine (0.66-1.25) mg/dL Glucose (74-99) mg/dL POC Glucose (mg/dL) 350 H (75-99) mg/dL Plasma Lactic Acid Jesu (0.7-2.0) mmol/L Urine Glucose (UA) (Negative) Urine Ketones (Negative) Diabetes panel 10/14/18 10/15/18 Range/Units 20:22 11:36 Sodium 134 L 136 L (137-145) mmol/L Potassium 4.6 4.4 (3.5-5.1) mmol/L Chloride 96 L 97 L (98-107) mmol/L Carbon Dioxide 23 26 (22-30) mmol/L BUN 13 7 L (9-20) mg/dL Creatinine 0.55 L 0.71 (0.66-1.25) mg/dL Glucose 383 H 320 H (74-99) mg/dL Calcium 9.5 9.4 (8.4-10.2) mg/dL AST 23 (17-59) U/L ALT 33 (21-72) U/L Alkaline Phosphatase 91 (38-126) U/L Total Protein 7.8 (6.3-8.2) g/dL Albumin 4.9 (3.5-5.0) g/dL Calcium panel 10/14/18 10/15/18 Range/Units 20:22 11:36 Calcium 9.5 9.4 (8.4-10.2) mg/dL Albumin 4.9 (3.5-5.0) g/dL Pituitary panel 10/14/18 10/15/18 Range/Units 20:22 11:36 Sodium 134 L 136 L (137-145) mmol/L Potassium 4.6 4.4 (3.5-5.1) mmol/L Chloride 96 L 97 L (98-107) mmol/L Carbon Dioxide 23 26 (22-30) mmol/L BUN 13 7 L (9-20) mg/dL Creatinine 0.55 L 0.71 (0.66-1.25) mg/dL Glucose 383 H 320 H (74-99) mg/dL Calcium 9.5 9.4 (8.4-10.2) mg/dL Adrenal panel 10/14/18 10/15/18 Range/Units 20:22 11:36 Sodium 134 L 136 L (137-145) mmol/L Potassium 4.6 4.4 (3.5-5.1) mmol/L Chloride 96 L 97 L (98-107) mmol/L Carbon Dioxide 23 26 (22-30) mmol/L BUN 13 7 L (9-20) mg/dL Creatinine 0.55 L 0.71 (0.66-1.25) mg/dL Glucose 383 H 320 H (74-99) mg/dL Calcium 9.5 9.4 (8.4-10.2) mg/dL Total Bilirubin 0.7 (0.2-1.3) mg/dL AST 23 (17-59) U/L ALT 33 (21-72) U/L Alkaline Phosphatase 91 (38-126) U/L Total Protein 7.8 (6.3-8.2) g/dL Albumin 4.9 (3.5-5.0) g/dL - Imaging Additional studies: Reviewed the CAT scans of the mandible disagree with the radiology report regarding a packing left in the wound. suggest possibly post surgical changes with possible air bubbles represent a normal reaction to a topical medicament placed in the wound to prevent recurrence of the dental cyst. Assessment and Plan Assessment: Normal postsurgical changes secondary to removal of a large dental cyst Plan: Air on CAT scan may represent postsurgical changes from topical medicament but changing the antibiotic to something more aggressive than penicillin seems appropriate with possibility of air forming bacteria. As long as patient cont inues to improve clinically do not recommend any surgical intervention at this time patient has follow-up visit with Dr. Hoang in 10 days
[2018-10-15] MEDS: KETOROLAC 30 MG/ML 1 ML VIAL IVP PRN ×2 (15:07→21:02)
[2018-10-15] MEDS: PIPERACILLIN-TAZOBACTAM 3.375 GM in SODIUM CHLORIDE 0.9% 100 ML IVPB SCH (16:47)
[2018-10-15 17:07] LABS: Glucose,Whole Blood >600 mg/dL (75-99)
[2018-10-15 17:10] LABS: Glucose,Whole Blood >600 mg/dL (75-99)
[2018-10-15] MEDS: methylPREDNISolone SOD SUCCI 125 MG/2 ML VIAL IV SCH (18:08)
[2018-10-15 19:30] LABS: Hemoglobin A1C 10.4 % (4.0-6.0)
[2018-10-15 21:12] LABS: Glucose,Whole Blood 255 mg/dL (75-99)
[2018-10-16] MEDS: PIPERACILLIN-TAZOBACTAM 3.375 GM in SODIUM CHLORIDE 0.9% 100 ML IVPB SCH ×4 (00:20→23:24)
[2018-10-16] MEDS: methylPREDNISolone SOD SUCCI 125 MG/2 ML VIAL IV SCH ×2 (00:24→05:06)
[2018-10-16] MEDS: KETOROLAC 30 MG/ML 1 ML VIAL IVP PRN ×4 (03:10→23:17)
[2018-10-16] MEDS ORDERED: VANCOMYCIN TROUGH DUE 1 EACH MISC MISCELLANE ONE (04:00)
[2018-10-16 04:26] LABS: African American GFR (CKD) >90 (>60 ml/min/1.73 sqM); Anion Gap 14 mmol/L; Blood Urea Nitrogen 12 mg/dL (9-20); Calcium 9.7 mg/dL (8.4-10.2); Carbon Dioxide 23 mmol/L (22-30); Chloride 98 mmol/L (98-107); Glucose 273 mg/dL (74-99); Magnesium 2.1 mg/dL (1.6-2.3); Potassium 4.4 mmol/L (3.5-5.1); Sodium 135 mmol/L (137-145)
[2018-10-16 04:38] LABS: Basophils % (A) 0 %; Eosinophils % (A) 0 %; HCT 48.1 % (39.0-53.0); HGB 15.7 gm/dL (13.0-17.5); Lymphocytes # (A) 1.1 k/uL (1.0-4.8); Lymphocytes % (A) 9 %; MCH 29.5 pg (25.0-35.0); MCHC 32.7 g/dL (31.0-37.0); MCV 90.2 fL (80.0-100.0); Monocytes # (A) 0.2 k/uL (0-1.0); Monocytes % (A) 2 %; Neutrophils # (A) 10.5 k/uL (1.3-7.7); Neutrophils % (A) 89 %; Platelet Count 355 k/uL (150-450); RBC 5.33 m/uL (4.30-5.90); RDW 13.6 % (11.5-15.5); WBC 11.9 k/uL (3.8-10.6)
[2018-10-16] MEDS: VANCOMYCIN 1,750 MG in SODIUM CHLORIDE 0.9% 500 ML 500 ML IVPB SCH ×2 (05:14→12:49)
[2018-10-16 06:21] LABS: Glucose,Whole Blood 302 mg/dL (75-99)
[2018-10-16] MEDS: INSULIN ASPART (NovoLOG) 100 UNIT/ML VIAL SQ SCH ×3 (06:51→17:23)
[2018-10-16] MEDS: SODIUM CHLORIDE 0.9% 1,000 ML IV SCH (07:20)
--- NOTE | 2018-10-16 11:30 | P.PN ---
Subjective Progress Note Date: 10/16/18 This is a 28-year-old white male well known to the practice. On 10/12/2018, He underwent dental surgery with Dr.Jeevaka Charles ANN at [facility] in [place]. This is for a dental abscess. He was discharged from their care on amoxicillin, Peridex mouthwash, and [place]. He is now most of the history is from his mother due to patient's pain with talking. Yesterday his mother informs me, who is at bedside, that his right face became more and more swollen, he had more increased pain and told his brother he was having shortness of breath. He presented emergency room and [facility]. He had initial lactic acid of 3.3, which was repeated at 1.9. He was found to be maintaining his airway after receiving IV Rocephin and then transitioning to vancomycin. He reports being in significant pain and having fatigue associated with the pain. He is tolerating some soft diet at this point. Denies any chest pains, pressures, or shortness of breath this time. Denies any nausea or vomiting this time. 10/16/2018: He is currently on Zosyn and vancomycin IV. He has IV Solu-Medrol for pain and swelling. He is also on Toradol and/or Dilaudid for pain. He is much improved today. He is able to open his jaw much easier. He denies any chest pains, pressures, shortness of breath. Denies any nausea or vomiting. He is tolerating a diet. Oral surgery consultation was reviewed. Waiting on infectious disease consult. Blood cultures 1 are negative. His sugars remain elevated at 250-300 even though he is on insulin scale and metformin. A1c is 10.4. Objective - Vital Signs Vital signs: Vital Signs Temp 97.9 F 10/16/18 08:00 Pulse 82 10/16/18 08:00 Resp 20 10/16/18 08:00 BP 131/80 10/16/18 08:00 Pulse Ox 95 10/16/18 08:00 Intake & Output 10/15/18 10/16/18 10/16/18 18:59 06:59 18:59 Intake Total 540 Output Total 600 650 Balance -600 -110 Weight 94.801 kg 96.5 kg Intake: Oral 540 Output: Urine 600 650 Other: # Voids 3 2 - Exam NERAL: Awake and alert, appears much more comfortable today. HEAD: Atraumatic, normocephalic. EYES: Pupils equal round and reactive to light, extraocular movements intact, sclera anicteric, conjunctiva are normal. ENT:nares patent, oropharynx very difficult for him to open due to pain. There is significant pain to palpation of the right mandible. There is no erythema or ecchymosis noted. Edema is mild at this time. NECK: Normal range of motion, supple, no thyromegaly, lymphadenopathy was not found, but palpated very gently, pain in this area is much improved. LUNGS: Breath sounds clear to auscultation bilaterally and equal. No wheezes rales or rhonchi. HEART: Regular rate and rhythm without murmurs, rubs or gallops.S1S2 Normal ABDOMEN: Soft, nontender, normoactive bowel sounds. No guarding, no rebound. No masses appreciated. EXTREMITIES: Normal range of motion, no pitting or edema. No clubbing or cyanosis. NEUROLOGICAL: Cranial nerves II through XII grossly intact. Each and gait testing were deferred today. PSYCH: Normal mood, normal affect. SKIN: Warm, Dry, normal turgor, no rashes or lesions noted. - Labs CBC & Chem 7: 10/16/18 03:43 10/16/18 03:43 Labs: Abnormal Lab Results - Last 24 Hours (Table) 10/15/18 10/15/18 10/15/18 Range/Units 11:36 11:36 11:36 WBC 14.5 H (3.8-10.6) k/uL Neutrophils # 10.2 H (1.3-7.7) k/uL Monocytes # 1.2 H (0-1.0) k/uL Sodium 136 L (137-145) mmol/L Chloride 97 L (98-107) mmol/L BUN 7 L (9-20) mg/dL Creatinine (0.66-1.25) mg/dL Glucose 320 H (74-99) mg/dL POC Glucose (mg/dL) (75-99) mg/dL Hemoglobin A1c 10.4 H (4.0-6.0) % 10/15/18 10/15/18 10/15/18 Range/Units 11:51 17:04 17:07 WBC (3.8-10.6) k/uL Neutrophils # (1.3-7.7) k/uL Monocytes # (0-1.0) k/uL Sodium (137-145) mmol/L Chloride (98-107) mmol/L BUN (9-20) mg/dL Creatinine (0.66-1.25) mg/dL Glucose (74-99) mg/dL POC Glucose (mg/dL) 350 H >600 H >600 H (75-99) mg/dL Hemoglobin A1c (4.0-6.0) % 10/15/18 10/15/18 10/16/18 Range/Units 17:16 20:52 03:43 WBC (3.8-10.6) k/uL Neutrophils # (1.3-7.7) k/uL Monocytes # (0-1.0) k/uL Sodium 135 L (137-145) mmol/L Chloride (98-107) mmol/L BUN (9-20) mg/dL Creatinine 0.50 L (0.66-1.25) mg/dL Glucose 351 H 273 H (74-99) mg/dL POC Glucose (mg/dL) 255 H (75-99) mg/dL Hemoglobin A1c (4.0-6.0) % 10/16/18 10/16/18 Range/Units 03:43 06:19 WBC 11.9 H (3.8-10.6) k/uL Neutrophils # 10.5 H (1.3-7.7) k/uL Monocytes # (0-1.0) k/uL Sodium (137-145) mmol/L Chloride (98-107) mmol/L BUN (9-20) mg/dL Creatinine (0.66-1.25) mg/dL Glucose (74-99) mg/dL POC Glucose (mg/dL) 302 H (75-99) mg/dL Hemoglobin A1c (4.0-6.0) % Microbiology - Last 24 Hours (Table) 10/14/18 20:22 Blood Culture - Preliminary Blood No Growth after 24 hours Assessment and Plan (1) Ludwigs angina Current Visit: Yes Status: Acute Code(s): K12.2 - CELLULITIS AND ABSCESS OF MOUTH SNOMED Code(s): 277749308 (2) Diabetes mellitus Current Visit: Yes Status: Acute Code(s): E11.9 - TYPE 2 DIABETES MELLITUS WITHOUT COMPLICATIONS SNOMED Code(s): 46967170 (3) Cellulitis and abscess of face Current Visit: Yes Status: Acute Code(s): L03.211 - CELLULITIS OF FACE; L02.01 - CUTANEOUS ABSCESS OF FACE SNOMED Code(s): 866947668 (4) Abscess, dental Current Visit: Yes Status: Acute Code(s): K04.7 - PERIAPICAL ABSCESS WITHOUT SINUS SNOMED Code(s): 486531936 (5) Hyperglycemia Current Visit: Yes Status: Acute Code(s): R73.9 - HYPERGLYCEMIA, UNSPECIFIED SNOMED Code(s): 22958794 (6) Type 2 diabetes mellitus with hyperglycemia Current Visit: Yes Status: Acute Code(s): E11.65 - TYPE 2 DIABETES MELLITUS WITH HYPERGLYCEMIA SNOMED Code(s): 924408605435330 Plan: He'll remain on vancomycin and Zosyn. Continue on IV Solu-Medrol. Awaiting infectious disease consult. 4 his A1c of 10.4, this time I'll place him on insulin scale the next 24 hours to better control his sugars. He may need basal insulin versus an SLGT2 and/or DP for inhibitors, for oral control of his diabetes. Repeat labs in a.m. He'll be reevaluated by medicine in next 24 hours. His overall status remains guarded, but is much improved.
[2018-10-16] MEDS ORDERED: INSULIN REGULAR 100 UNIT/ML VIAL IV ONE (11:32)
[2018-10-16 11:36] LABS: Glucose,Whole Blood 304 mg/dL (75-99)
[2018-10-16] MEDS ORDERED: INSULIN REGULAR BOLUS (FROM DRIP BAG) IV ONE (11:39)
[2018-10-16] MEDS: methylPREDNISolone SOD SUCCI 40 MG/ML 1 ML VIAL IV SCH ×3 (12:11→23:19)
[2018-10-16] MEDS: INSULIN REGULAR 100 UNIT in SODIUM CHLORIDE 0.9% 100 ML IV SCH ×2 (12:31→23:04)
[2018-10-16 13:00] LABS: Glucose,Whole Blood 269 mg/dL (75-99)
--- NOTE | 2018-10-16 13:28 | P.PN ---
Subjective Progress Note Date: 10/16/18 Principal diagnosis: Jaw pain and swelling Patient had outpatient surgery for removal of cyst on Wednesday came into the emergency room with pain and swelling about 2-3 days postoperative. Since has been improving on current medical management. I spoke with Dr. Haq via text mes kulwinder and reported the packing material is Gelfoam with 5-FU and this is designed to be left in place to prevent recurrence of the cyst. Objective - Vital Signs Vital signs: Vital Signs Temp 97.9 F 10/16/18 08:00 Pulse 82 10/16/18 08:00 Resp 20 10/16/18 08:00 BP 131/80 10/16/18 08:00 Pulse Ox 95 10/16/18 08:00 Intake & Output 10/15/18 10/16/18 10/16/18 18:59 06:59 18:59 Intake Total 540 128.016 Output Total 600 650 300 Balance -600 -110 -171.984 Weight 94.801 kg 96.5 kg Intake: Intake, IV Titration 10.016 Amount Insulin Regular 100 unit 10.016 In Sodium Chloride 0.9% 100 ml @ Titrate IV .Q0M [facility] Rx#:[id number] Oral 540 118 Output: Urine 600 650 300 Other: # Voids 3 2 - Exam Patient up at the bedside headed to the bathroom talking and opening his mouth much better today says he feels significantly improved and has been eating and drinking without difficulty. No intraoral or external swelling noted. The wounds are clean and intact. - Labs CBC & Chem 7: 10/16/18 03:43 10/16/18 03:43 Labs: Abnormal Lab Results - Last 24 Hours (Table) 10/15/18 10/15/18 10/15/18 Range/Units 11:36 17:04 17:07 WBC (3.8-10.6) k/uL Neutrophils # (1.3-7.7) k/uL Sodium (137-145) mmol/L Creatinine (0.66-1.25) mg/dL Glucose (74-99) mg/dL POC Glucose (mg/dL) >600 H >600 H (75-99) mg/dL Hemoglobin A1c 10.4 H (4.0-6.0) % 10/15/18 10/15/18 10/16/18 Range/Units 17:16 20:52 03:43 WBC (3.8-10.6) k/uL Neutrophils # (1.3-7.7) k/uL Sodium 135 L (137-145) mmol/L Creatinine 0.50 L (0.66-1.25) mg/dL Glucose 351 H 273 H (74-99) mg/dL POC Glucose (mg/dL) 255 H (75-99) mg/dL Hemoglobin A1c (4.0-6.0) % 10/16/18 10/16/18 10/16/18 Range/Units 03:43 06:19 11:35 WBC 11.9 H (3.8-10.6) k/uL Neutrophils # 10.5 H (1.3-7.7) k/uL Sodium (137-145) mmol/L Creatinine (0.66-1.25) mg/dL Glucose (74-99) mg/dL POC Glucose (mg/dL) 302 H 304 H (75-99) mg/dL Hemoglobin A1c (4.0-6.0) % 10/16/18 Range/Units 12:59 WBC (3.8-10.6) k/uL Neutrophils # (1.3-7.7) k/uL Sodium (137-145) mmol/L Creatinine (0.66-1.25) mg/dL Glucose (74-99) mg/dL POC Glucose (mg/dL) 269 H (75-99) mg/dL Hemoglobin A1c (4.0-6.0) % Microbiology - Last 24 Hours (Table) 10/14/18 20:22 Blood Culture - Preliminary Blood No Growth after 24 hours Assessment and Plan Assessment: Patient doing well suspect the anti-inflammatory Motrin/steroid is helping significantly. Plan: Educated patient about the advantages of the nonsteroidal anti-inflammatory ibuprofen for discharge medication. Recommended he use more of the ibuprofen rather than the [place] upon discharge. Time with Patient: Less than 30
[2018-10-16 13:35] LABS: Glucose,Whole Blood 274 mg/dL (75-99)
[2018-10-16 14:07] LABS: Glucose,Whole Blood 244 mg/dL (75-99)
[2018-10-16 14:59] LABS: Glucose,Whole Blood 225 mg/dL (75-99)
[2018-10-16 16:08] LABS: Glucose,Whole Blood 240 mg/dL (75-99)
--- NOTE | 2018-10-16 16:43 | P.CONS ---
History of Present Illness - Reason for Consult Consult date: 10/16/18 - Chief Complaint pain in the jaw - History of Present Illness 28-year-old male who has a known history of a mandibular cyst that was resected. There is data that still available than at the site of the resection Gelfoam with 5-fluorouracil was placed at that site. He presents to Hospital because he was having increasing pain swelling was unable to eat or drink and consequently presented to the emergency center. There he was with swelling and tenderness to the jaw feeling quite poorly. He was not having difficulties breathing however there was concern for sepsis and he was admitted. Is having treated with multiple antibiotics and consult was requested. Oral surgery has now had the ability to talk to the surgical service who performed the debridement. Amoxicillin with pain control and the procedure was utilize as well as. Ex. The patient is now showing a marked improvement since coming to hospital. Of note he is received some anti-inflammatory a couple doses of Solu- Medrol is allowed a marked improvement of his swelling and pain. Is currently sitting upright planing a board game with his . Review of Systems HEENT:Denies headache or acute visual change. mouth pain is improving, as noted no difficulty swallowing his been able to ingest fluids and some food today without difficulty. Lungs: Denies significant shortness of breath, cough, sputum production, or hemoptysis. Cardiovascular: Denies significant shortness of breath, chest pain, chest wall pain, orthopnea, dyspnea on exertion, syncope Gastrointestinal:Denies nausea, vomiting, diarrhea, constipation, hematemesis, melena, hematochezia. No no significant change of bowel habit noticed. Musculoskeletal: denies significant myalgias or arthralgias. No new joint swelling. Denies new back pain. Skin: Denies new rash or lesions. No new ulcers or wounds are related.. Neuro: Denies headache or visual change. Denies any new onset weakness or difficulty with ambulation. Denies falls or seizures. Psychiatric:Denies anxiety or depression. Endocrine: Denies significant fatigue, denies significant weight loss or weight gain. Past Medical History Past Medical History: Diabetes Mellitus, GERD/Reflux History of Any Multi-Drug Resistant Organisms: None Reported Past Surgical History: No Surgical Hx Reported Past Psychological History: No Psychological Hx Reported Additional Psychological History / Comment(s): and lives with his , both appear to be with challenges. it is related that the mother is the guardian. has performed from smoking. No recreational drug use. No animals in the home Smoking Status: Former smoker Past Alcohol Use History: None Reported Past Drug Use History: None Reported Medications and Allergies Home Medications and Allergies Comment(s): Current Medications Hydromorphone HCl (Dilaudid) 2 mg IVP Q3HR PRN PRN Reason: SEVERE Pain Sodium Chloride (Saline 0.9%) 1,000 mls @ 20 mls/hr IV .Q24H [facility] Last Admin: 10/16/18 07:20 Dose: Not Given Documented by: Piperacillin Sod/Tazobactam (Sod 3.375 gm/ Sodium Chloride) 100 mls @ 25 mls/hr IVPB Q8HR [facility] Last Admin: 10/16/18 09:07 Dose: 25 mls/hr Documented by: Insulin Human Regular 100 unit (/ Sodium Chloride) 101 mls @ 0 mls/hr IV .Q0M [facility]; Protocol Last Titration: 10/16/18 16:20 Dose: 6.93 units/hr, 7 mls/hr Documented by: Insulin Aspart (Novolog) 13 unit 0.13 unit/kg (13 unit) SQ AC-TID [facility] Last Admin: 10/16/18 12:11 Dose: 13 unit Documented by: Ketorolac Tromethamine (Toradol) 30 mg IVP Q6HR PRN PRN Reason: MILD TO MODERATE Pain Stop: 10/19/18 14:29 Last Admin: 10/16/18 09:07 Dose: 30 mg Documented by: Methylprednisolone Sodium Succinate (Solu-Medrol) 30 mg IV Q6HR [facility] Last Admin: 10/16/18 12:11 Dose: 30 mg Documented by: Naloxone HCl (Narcan) 0.2 mg IV Q2M PRN PRN Reason: Opioid Reversal Home Medications Medication Instructions Recorded Confirmed Type metFORMIN HCL 1,000 mg PO BID 01/13/18 10/14/18 History Amoxicillin 500 mg PO TID 10/14/18 10/14/18 History HYDROcodone/APAP 5-325MG [Boyd 1 tab PO Q6HR PRN 10/14/18 10/14/18 History 5-325] Allergies Allergy/AdvReac Type Severity Reaction Status Date / Time No Known Allergies Allergy Verified 10/14/18 23:22 Physical Exam Vitals: Vital Signs Temp Pulse Resp BP BP Pulse Ox 10/16/18 15:33 81 20 118/66 97 10/16/18 12:00 81 20 118/66 97 10/16/18 08:00 97.9 F 82 20 131/80 95 10/16/18 03:30 98.2 F 87 16 122/73 95 10/16/18 00:00 98 16 125/75 95 10/15/18 20:00 98.1 F 69 16 127/74 97 10/15/18 16:38 83 20 132/66 96 Intake and Output 10/16/18 10/16/18 10/16/18 06:59 14:59 22:59 Intake Total 300 142.341 12.250 Output Total 300 Balance 300 -157.659 12.250 Intake: Intake, IV Titration 24.341 12.250 Amount Insulin Regular 100 unit 24.341 12.250 In Sodium Chloride 0.9% 100 ml @ Titrate IV .Q0M [facility] Rx#:[id number] Oral 300 118 Output: Urine 300 Other: # Voids 2 Weight 96.5 kg HEENT: Anicteric conjunctiva are pink and moist nasal mucosa grossly intact without significant lesions,the oral cavity shows a lack of any significant purulent secretions. The right lower lip is minimally swollen apparently much improved. There is ability to open the mouth without difficulty. He is having no difficulty speaking or handling his saliva. The pharynx is without erythema or thrush Neck: The neck is supple without significant lymphadenopathy or thyromegaly. Lungs: Good bilateral air entry without significant crackles or wheezing. There is no significant bronchial sounds. There is no egophony or dullness. Heart: Regular rate and rhythm with an audible S1-S2, no S3 no S4. There is no significant murmur click or rub, PMI was nondisplaced. Abdomen: Positive bowel sounds soft and nontender without palpable masses or organomegaly. There was no guarding or rebound. Extremities: The upper extremities have excellent pulses they are symmetric, no significant petechiae or telangiectasia. No splinter hemorrhages were noted. The lower extremities are free from significant edema. The peripheral pulses were 2+ and symmetric. Neuro: Awake alert oriented to person place and time. There are no acute new gross focal sensory motor deficits. Results CBC & Chem 7: 10/16/18 03:43 10/16/18 03:43 Labs: Abnormal Lab Results - Last 24 Hours (Table) 10/15/18 10/15/18 10/15/18 Range/Units 11:36 17:04 17:07 WBC (3.8-10.6) k/uL Neutrophils # (1.3-7.7) k/uL Sodium (137-145) mmol/L Creatinine (0.66-1.25) mg/dL Glucose (74-99) mg/dL POC Glucose (mg/dL) >600 H >600 H (75-99) mg/dL Hemoglobin A1c 10.4 H (4.0-6.0) % 10/15/18 10/15/18 10/16/18 Range/Units 17:16 20:52 03:43 WBC (3.8-10.6) k/uL Neutrophils # (1.3-7.7) k/uL Sodium 135 L (137-145) mmol/L Creatinine 0.50 L (0.66-1.25) mg/dL Glucose 351 H 273 H (74-99) mg/dL POC Glucose (mg/dL) 255 H (75-99) mg/dL Hemoglobin A1c (4.0-6.0) % 10/16/18 10/16/18 10/16/18 Range/Units 03:43 06:19 11:35 WBC 11.9 H (3.8-10.6) k/uL Neutrophils # 10.5 H (1.3-7.7) k/uL Sodium (137-145) mmol/L Creatinine (0.66-1.25) mg/dL Glucose (74-99) mg/dL POC Glucose (mg/dL) 302 H 304 H (75-99) mg/dL Hemoglobin A1c (4.0-6.0) % 10/16/18 10/16/18 10/16/18 Range/Units 12:59 13:34 14:06 WBC (3.8-10.6) k/uL Neutrophils # (1.3-7.7) k/uL Sodium (137-145) mmol/L Creatinine (0.66-1.25) mg/dL Glucose (74-99) mg/dL POC Glucose (mg/dL) 269 H 274 H 244 H (75-99) mg/dL Hemoglobin A1c (4.0-6.0) % 10/16/18 10/16/18 Range/Units 14:58 16:06 WBC (3.8-10.6) k/uL Neutrophils # (1.3-7.7) k/uL Sodium (137-145) mmol/L Creatinine (0.66-1.25) mg/dL Glucose (74-99) mg/dL POC Glucose (mg/dL) 225 H 240 H (75-99) mg/dL Hemoglobin A1c (4.0-6.0) % Microbiology - Last 24 Hours (Table) 10/15/18 13:19 Blood Culture - Preliminary Blood No Growth after 24 hours 10/14/18 20:22 Blood Culture - Preliminary Blood No Growth after 24 hours Laboratory Results WBC 11.9 k/uL (3.8-10.6) H 10/16/18 03:43 RBC 5.33 m/uL (4.30-5.90) 10/16/18 03:43 Hgb 15.7 gm/dL (13.0-17.5) 10/16/18 03:43 Hct 48.1 % (39.0-53.0) 10/16/18 03:43 MCV 90.2 fL (80.0-100.0) 10/16/18 03:43 MCH 29.5 pg (25.0-35.0) 10/16/18 03:43 MCHC 32.7 g/dL (31.0-37.0) 10/16/18 03:43 RDW 13.6 % (11.5-15.5) 10/16/18 03:43 Plt Count 355 k/uL (150-450) 10/16/18 03:43 Neutrophils % 89 % 10/16/18 03:43 Lymphocytes % 9 % 10/16/18 03:43 Monocytes % 2 % 10/16/18 03:43 Eosinophils % 0 % 10/16/18 03:43 Basophils % 0 % 10/16/18 03:43 Neutrophils # 10.5 k/uL (1.3-7.7) H 10/16/18 03:43 Lymphocytes # 1.1 k/uL (1.0-4.8) 10/16/18 03:43 Monocytes # 0.2 k/uL (0-1.0) 10/16/18 03:43 Eosinophils # 0.0 k/uL (0-0.7) 10/16/18 03:43 Basophils # 0.0 k/uL (0-0.2) 10/16/18 03:43 Sodium 135 mmol/L (137-145) L 10/16/18 03:43 Potassium 4.4 mmol/L (3.5-5.1) 10/16/18 03:43 Chloride 98 mmol/L (98-107) 10/16/18 03:43 Carbon Dioxide 23 mmol/L (22-30) 10/16/18 03:43 Anion Gap 14 mmol/L 10/16/18 03:43 BUN 12 mg/dL (9-20) 10/16/18 03:43 Creatinine 0.50 mg/dL (0.66-1.25) L 10/16/18 03:43 Est GFR (CKD-EPI)AfAm >90 (>60 ml/min/1.73 sqM) 10/16/18 03:43 Est GFR (CKD-EPI)NonAf >90 (>60 ml/min/1.73 sqM) 10/16/18 03:43 Glucose 273 mg/dL (74-99) H 10/16/18 03:43 POC Glucose (mg/dL) 240 mg/dL (75-99) H 10/16/18 16:06 POC Glu [employer] DI Liana Dillon 10/16/18 16:[address] Glu mg/dL 252 10/15/18 11:36 Hemoglobin A1c 10.4 % (4.0-6.0) H 10/15/18 11:36 Lactic Ac Sepsis Rflx Y 10/14/18 20:46 Plasma Lactic Acid Jesu 1.0 mmol/L (0.7-2.0) 10/16/18 05:18 Calcium 9.7 mg/dL (8.4-10.2) 10/16/18 03:43 Magnesium 2.1 mg/dL (1.6-2.3) 10/16/18 03:43 Total Bilirubin 0.7 mg/dL (0.2-1.3) 10/14/18 20:22 AST 23 U/L (17-59) 10/14/18 20:22 ALT 33 U/L (21-72) 08/02/19 20:22 Alkaline Phosphatase 91 U/L (38-126) 10/14/18 20:22 Total Protein 7.8 g/dL (6.3-8.2) 10/14/18 20:22 Albumin 4.9 g/dL (3.5-5.0) 10/14/18 20:22 Urine Color Light Yellow 10/15/18 06:15 Urine Appearance Clear (Clear) 10/15/18 06:15 Urine pH 6.0 (5.0-8.0) 10/15/18 06:15 Ur Specific [place] 1.007 (1.001-1.035) 10/15/18 06:15 Urine Protein Negative (Negative) 10/15/18 06:15 Urine Glucose (UA) 4+ (Negative) H 10/15/18 06:15 Urine Ketones 2+ (Negative) H 10/15/18 06:15 Urine Blood Negative (Negative) 10/15/18 06:15 Urine Nitrite Negative (Negative) 10/15/18 06:15 Urine Bilirubin Negative (Negative) 10/15/18 06:15 Urine Urobilinogen <2.0 mg/dL (<2.0) 10/15/18 06:15 Ur Leukocyte Esterase Negative (Negative) 10/15/18 06:15 Vancomycin Trough 10.4 ug/mL 10/16/18 03:43 Microbiology 10/15/18 13:19 Blood Blood Culture - Preliminary No Growth after 24 hours 10/14/18 20:22 Blood Blood Culture - Preliminary No Growth after 24 hours Assessment and Plan (1) Abscess, dental Narrative/Plan: 28-year-old male who has a history of a cyst into the mandible that required surgical intervention was performed on 10/12/2018. This area was surgically debrided and packed with Gelfoam and 5-fluorouracil. In-hospital now the patient has had a marked improvement with the change of antibiotic therapy, steroid therapy, anti-inflammatories. He is doing very well and there is likely that he will be discharged home tomorrow if he has ongoing improvement. The time of his discharge agree with the oral surgeon that anti-inflammatories should be continued. Would also utilize oral Augmentin his his antibiotic to complete the treatment for the infection to that site. Adequate protein intake will help his healing. Current Visit: Yes Status: Acute Code(s): K04.7 - PERIAPICAL ABSCESS WITHOUT SINUS SNOMED Code(s): 595989227 (2) Diabetes mellitus Current Visit: Yes Status: Acute Code(s): E11.9 - TYPE 2 DIABETES MELLITUS WITHOUT COMPLICATIONS SNOMED Code(s): 92500023
[2018-10-16 17:03] LABS: Glucose,Whole Blood 250 mg/dL (75-99)
[2018-10-16 18:10] LABS: Glucose,Whole Blood 297 mg/dL (75-99)
[2018-10-16 19:04] LABS: Glucose,Whole Blood 243 mg/dL (75-99)
[2018-10-16 20:01] LABS: Glucose,Whole Blood 228 mg/dL (75-99)
[2018-10-16 21:03] LABS: Glucose,Whole Blood 240 mg/dL (75-99)
[2018-10-16 22:09] LABS: Glucose,Whole Blood 169 mg/dL (75-99)
[2018-10-16 23:23] LABS: Glucose,Whole Blood 180 mg/dL (75-99)
[2018-10-17] LABS: Glucose,Whole Blood 253 mg/dL (75-99)
[2018-10-17 02:11] LABS: Glucose,Whole Blood 320 mg/dL (75-99)
[2018-10-17 04:11] LABS: Glucose,Whole Blood 247 mg/dL (75-99)
[2018-10-17] MEDS: methylPREDNISolone SOD SUCCI 40 MG/ML 1 ML VIAL IV SCH ×2 (05:38→11:51)
[2018-10-17 06:02] LABS: Glucose,Whole Blood 195 mg/dL (75-99)
[2018-10-17 06:30] LABS: Glucose,Whole Blood 173 mg/dL (75-99)
[2018-10-17] MEDS: INSULIN ASPART (NovoLOG) 100 UNIT/ML VIAL SQ SCH ×3 (06:42→17:41)
[2018-10-17] MEDS: SODIUM CHLORIDE 0.9% 1,000 ML IV SCH ×2 (07:46→22:14)
[2018-10-17 08:31] LABS: Glucose,Whole Blood 172 mg/dL (75-99)
[2018-10-17] MEDS: PIPERACILLIN-TAZOBACTAM 3.375 GM in SODIUM CHLORIDE 0.9% 100 ML IVPB SCH (08:38)
[2018-10-17 09:48] LABS: HCT 41.7 % (39.0-53.0); HGB 13.9 gm/dL (13.0-17.5); MCH 29.2 pg (25.0-35.0); MCHC 33.3 g/dL (31.0-37.0); MCV 87.8 fL (80.0-100.0); Mean Platelet Volume 6.6; Platelet Count 376 k/uL (150-450); RBC 4.75 m/uL (4.30-5.90); RDW 12.3 % (11.5-15.5); WBC 21.8 k/uL (3.8-10.6)
[2018-10-17 09:59] LABS: African American GFR (CKD) >90 (>60 ml/min/1.73 sqM); Anion Gap 11 mmol/L; Blood Urea Nitrogen 18 mg/dL (9-20); Calcium 9.6 mg/dL (8.4-10.2); Carbon Dioxide 24 mmol/L (22-30); Chloride 102 mmol/L (98-107); Glucose 154 mg/dL (74-99); Potassium 4.4 mmol/L (3.5-5.1); Sodium 137 mmol/L (137-145)
[2018-10-17 11:27] LABS: Glucose,Whole Blood 151 mg/dL (75-99)
[2018-10-17] MEDS ORDERED: ACETAMINOPHEN TAB 500 MG TAB PO PRN (14:15)
--- NOTE | 2018-10-17 15:23 | P.PN ---
Subjective Progress Note Date: 10/17/18 Hospital course:This is a 28-year-old white male well known to the practice. On 10/12/2018, He underwent dental surgery with Dr.Jeevaka Charles ANN at [facility] in [place]. This is for a dental abscess. He was discharged from their care on amoxicillin, Peridex mouthwash, and [place]. He is now most of the history is from his mother due to patient's pain with talking. Yesterday his mother informs me, who is at bedside, that his right face became more and more swollen, he had more increased pain and told his brother he was having shortness of breath. He presented emergency room and [facility]. He had initial lactic acid of 3.3, which was repeated at 1.9. He was found to be maintaining his airway after receiving IV Rocephin and then transitioning to vancomycin. He reports being in significant pain and having fatigue associated with the pain. He is tolerating some soft diet at this point. Denies any chest pains, pressures, or shortness of breath this time. Denies any nausea or vomiting this time. 10/16/2018: He is currently on Zosyn and vancomycin IV. He has IV Solu-Medrol for pain and swelling. He is also on Toradol and/or Dilaudid for pain. He is m uch improved today. He is able to open his jaw much easier. He denies any chest pains, pressures, shortness of breath. Denies any nausea or vomiting. He is tolerating a diet. Oral surgery consultation was reviewed. Waiting on infectious disease consult. Blood cultures 1 are negative. His sugars remain elevated at 250-300 even though he is on insulin scale and metformin. A1c is 10.4. 10/17/2018 significant clinical improvement on IV steroids, IV antibiotics of vancomycin and Zosyn. Denies abdominal pain, denies diarrhea. Creatinine 0.6. Denies pain. Evaluated by oral surgery with recommendations noted and appreciated. Blood sugars controlled on insulin drip. Denies chest pain, palpitations or shortness of breath. Afebrile, WBC 21.8. Objective - Vital Signs Vital signs: Vital Signs Temp 98.1 F 10/17/18 11:08 Pulse 73 10/17/18 11:08 Resp 16 10/17/18 11:08 BP 122/60 10/17/18 11:08 Pulse Ox 98 10/17/18 11:08 Intake & Output 10/16/18 10/17/18 10/17/18 18:59 06:59 18:59 Intake Total 285.541 487.083 606.439 Output Total 1300 Balance -1014.459 487.083 606.439 Weight 92.2 kg Intake: Intake, IV Titration 49.541 87.083 16.439 Amount Insulin Regular 100 unit 49.541 87.083 16.439 In Sodium Chloride 0.9% 100 ml @ Titrate IV .Q0M NORMAN Rx#:[id number] Oral 236 400 590 Output: Urine 1300 Other: # Voids 1 2 1 - Exam - Exam GENERAL: Alert and oriented 3, no acute distress HEAD: Atraumatic, normocephalic. EYES: Pupils equal round and reactive to light, extraocular movements intact, sclera anicteric, conjunctiva are normal. ENT:nares patent, oropharynx very difficult for him to open due to pain. right mandible tenderness. There is no erythema or ecchymosis noted. Edema is mild at this time. NECK: Normal range of motion, supple, no thyromegaly, lymphadenopathy was not found, but palpated very gently, pain in this area is much improved. LUNGS: Breath sounds clear to auscultation bilaterally and equal. No wheezes rales or rhonchi. HEART: Regular rate and rhythm without murmurs, rubs or gallops.S1S2 Normal ABDOMEN: Soft, nontender, normoactive bowel sounds. No guarding, no rebound. No masses appreciated. EXTREMITIES: Normal range of motion, no pitting or edema. No clubbing or cyanosis. NEUROLOGICAL: Cranial nerves II through XII grossly intact. PSYCH: Normal affect, normal mood, appears mildly mentally challenged. - Labs CBC & Chem 7: 10/17/18 09:09 10/17/18 09:09 Labs: Abnormal Lab Results - Last 24 Hours (Table) 10/16/18 10/16/18 10/16/18 Range/Units 16:06 17:01 18:08 WBC (3.8-10.6) k/uL Creatinine (0.66-1.25) mg/dL Glucose (74-99) mg/dL POC Glucose (mg/dL) 240 H 250 H 297 H (75-99) mg/dL 10/16/18 10/16/18 10/16/18 Range/Units 19:02 20:00 21:01 WBC (3.8-10.6) k/uL Creatinine (0.66-1.25) mg/dL Glucose (74-99) mg/dL POC Glucose (mg/dL) 243 H 228 H 240 H (75-99) mg/dL 10/16/18 10/16/18 10/16/18 Range/Units 22:07 23:12 23:58 WBC (3.8-10.6) k/uL Creatinine (0.66-1.25) mg/dL Glucose (74-99) mg/dL POC Glucose (mg/dL) 169 H 180 H 253 H (75-99) mg/dL 10/17/18 10/17/18 10/17/18 Range/Units 01:59 03:59 06:00 WBC (3.8-10.6) k/uL Creatinine (0.66-1.25) mg/dL Glucose (74-99) mg/dL POC Glucose (mg/dL) 320 H 247 H 195 H (75-99) mg/dL 10/17/18 10/17/18 10/17/18 Range/Units 06:29 08:30 09:09 WBC 21.8 H (3.8-10.6) k/uL Creatinine (0.66-1.25) mg/dL Glucose (74-99) mg/dL POC Glucose (mg/dL) 173 H 172 H (75-99) mg/dL 10/17/18 10/17/18 Range/Units 09:09 11:06 WBC (3.8-10.6) k/uL Creatinine 0.60 L (0.66-1.25) mg/dL Glucose 154 H (74-99) mg/dL POC Glucose (mg/dL) 151 H (75-99) mg/dL Microbiology - Last 24 Hours (Table) 10/14/18 20:22 Blood Culture - Preliminary Blood No Growth after 48 hours 10/15/18 13:19 Blood Culture - Preliminary Blood No Growth after 24 hours Assessment and Plan Assessment: (1) Ludwigs angina. Status post removal of cyst, packed with 5-FU Gelfoam Current Visit: Yes Status: Acute Code(s): K12.2 - CELLULITIS AND ABSCESS OF MOUTH SNOMED Code(s): 616545884 (2) Diabetes mellitus Current Visit: Yes Status: Acute Code(s): E11.9 - TYPE 2 DIABETES MELLITUS WITHOUT COMPLICATIONS SNOMED Code(s): 45918669 (3) Cellulitis and abscess of face Current Visit: Yes Status: Acute Code(s): L03.211 - CELLULITIS OF FACE; L02.01 - CUTANEOUS ABSCESS OF FACE SNOMED Code(s): 744014415 (4) Abscess, dental Current Visit: Yes Status: Acute Code(s): K04.7 - PERIAPICAL ABSCESS WITHOUT SINUS SNOMED Code(s): 897060103 (5) Hyperglycemia Current Visit: Yes Status: Acute Code(s): R73.9 - HYPERGLYCEMIA, UNSPECIFIED SNOMED Code(s): 71624901 (6) Type 2 diabetes mellitus with hyperglycemia, A1c 10.4 Current Visit: Yes Status: Acute Code(s) Plan: Continue current medication regime ,monitoring and symptomatic treatment. IV steroids converted to oral, IV antibiotics transitioned to oral Augmentin, continue monitoring for loose stools,as patient is high risk for C. difficile colitis. IV Toradol discontinued.Tylenol Extra Strength added for pain management . Insulin drip discontinued, basalglar insulin initiated along with metformin and premeal insulin. Hemoglobin A1c 10.4. Will probably send home on basalglar insulin pen along with januvia. informatics educator consulted. Diabetic teaching. Case management to assist/confirm glucometer, diabetic supplies. Increase activity as tolerated. Patient has a legal guardian. Discharge planning in progress for tomorrow pending blood sugars are controlled. The impression and plan of care has been dictated as directed. : I performed a history and examination of this patient, discussed the same with the dictator. I agree with the dictator's note ,documented as a scribe. Any additional findings or plans will be noted.
[2018-10-17 16:59] LABS: Glucose,Whole Blood 350 mg/dL (75-99)
[2018-10-17] MEDS: metFORMIN 500 MG TAB PO SCH (17:41)
[2018-10-17] MEDS: AMOXIC-POT CLAV 875-125MG 1 EACH TAB PO SCH (20:09)
[2018-10-17 20:52] LABS: Glucose,Whole Blood 418 mg/dL (75-99)
[2018-10-17] MEDS ORDERED: INSULIN DETEMIR (LEVEMIR) 100 UNIT/ML SYR SQ SCH (21:00)
[2018-10-17] MEDS ORDERED: INSULIN ASPART (NovoLOG) 100 UNIT/ML VIAL SQ ONE (21:37)
[2018-10-18 06:00] LABS: Glucose,Whole Blood 222 mg/dL (75-99)
[2018-10-18 06:35] LABS: Basophils % (A) 0 %; Eosinophils % (A) 0 %; HCT 38.5 % (39.0-53.0); Lymphocytes # (A) 2.7 k/uL (1.0-4.8); Lymphocytes % (A) 16 %; MCH 29.8 pg (25.0-35.0); MCHC 33.8 g/dL (31.0-37.0); MCV 88.1 fL (80.0-100.0); Mean Platelet Volume 6.4; Monocytes # (A) 1.5 k/uL (0-1.0); Monocytes % (A) 9 %; Neutrophils # (A) 12.7 k/uL (1.3-7.7); Neutrophils % (A) 74 %; Platelet Count 326 k/uL (150-450); RBC 4.36 m/uL (4.30-5.90); RDW 12.3 % (11.5-15.5); WBC 17.2 k/uL (3.8-10.6)
[2018-10-18 06:52] LABS: African American GFR (CKD) >90 (>60 ml/min/1.73 sqM); Anion Gap 9 mmol/L; Blood Urea Nitrogen 17 mg/dL (9-20); Carbon Dioxide 28 mmol/L (22-30); Chloride 100 mmol/L (98-107); Glucose 225 mg/dL (74-99); Potassium 4.3 mmol/L (3.5-5.1); Sodium 137 mmol/L (137-145)
[2018-10-18 07:00] LABS: Glucose,Whole Blood 228 mg/dL (75-99)
[2018-10-18] MEDS: metFORMIN 500 MG TAB PO SCH (07:06)
[2018-10-18] MEDS: INSULIN ASPART (NovoLOG) 100 UNIT/ML VIAL SQ SCH ×2 (07:07→12:12)
[2018-10-18 07:24] VITALS: RESP 16; TEMP 97.4
[2018-10-18] MEDS: AMOXIC-POT CLAV 875-125MG 1 EACH TAB PO SCH (08:37)
[2018-10-18] MEDS ORDERED: predniSONE 20 MG TAB PO SCH (09:00)
[2018-10-18 11:50] VITALS: BP 125/66; PULSE 62
[2018-10-18 11:55] LABS: Glucose,Whole Blood 185 mg/dL (75-99)
--- NOTE | 2018-10-18 14:26 | P.DS ---
Providers Date of admission: 10/18/18 06:48 Expected date of discharge: 10/18/18 Attending physician: Chuckie Marquez Consults: 10/15/18 11:21 Consult Physician Routine Consulting Provider: Sanjay Sanchez Consult Reason/Comments: dental abcess Do you want consulting provider notified?: Yes 10/15/18 13:01 Consult Physician Routine Consulting Provider: Fred Liu Consult Reason/Comments: dental abcess, ludwigs angina Do you want consulting provider notified?: Yes Primary care physician: [facility] Course: Final Diagnoses: 1) Ludwigs angina. Status post removal of cyst, packed with 5-FU Gelfoam Current Visit: Yes Status: Acute Code(s): K12.2 - CELLULITIS AND ABSCESS OF MOUTH SNOMED Code(s): 931968850 (2) Diabetes mellitus Current Visit: Yes Status: Acute Code(s): E11.9 - TYPE 2 DIABETES MELLITUS WITHOUT COMPLICATIONS SNOMED Code(s): 17606402 (3) Cellulitis and abscess of face Current Visit: Yes Status: Acute Code(s): L03.211 - CELLULITIS OF FACE; L02.01 - CUTANEOUS ABSCESS OF FACE SNOMED Code(s): 345539846 (4) Abscess, dental Current Visit: Yes Status: Acute Code(s): K04.7 - PERIAPICAL ABSCESS WITHOUT SINUS SNOMED Code(s): 620929693 (5) Hyperglycemia Current Visit: Yes Status: Acute Code(s): R73.9 - HYPERGLYCEMIA, UNSPECIFIED SNOMED Code(s): 46020639 (6) Type 2 diabetes mellitus with hyperglycemia, A1c 10.4 Current Visit: Yes Status: Acute Code(s) Hospital course:This is a 28-year-old white male well known to the practice. On 10/12/2018, He underwent dental surgery with Dr.Jeevaka Charles ANN at [facility] in [place]. This is for a dental abscess. He was discharged from their care on amoxicillin, Peridex mouthwash, and [place]. He is now most of the history is from his mother due to patient's pain with talking. Yesterday his mother informs me, who is at bedside, that his right face became more and more swollen, he had more increased pain and told his brother he was having shortness of breath. He presented emergency room and [facility]. He had initial lactic acid of 3.3, which was repeated at 1.9. He was found to be maintaining his airway after receiving IV Rocephin and then transitioning to vancomycin. He reports being in significant pain and having fatigue associated with the pain. He is tolerating some soft diet at this point. Denies any chest pains, pressures, or shortness of breath this time. Denies any nausea or vomiting this time. 10/16/2018: He is currently on Zosyn and vancomycin IV. He has IV Solu-Medrol for pain and swelling. He is also on Toradol and/or Dilaudid for pain. He is much improved today. He is able to open his jaw much easier. He denies any chest pains, pressures, shortness of breath. Denies any nausea or vomiting. He is tolerating a diet. Oral surgery consultation was reviewed. Waiting on infectious disease consult. Blood cultures 1 are negative. His sugars remain elevated at 250-300 even though he is on insulin scale and metformin. A1c is 10.4. 10/17/2018 significant clinical improvement on IV steroids, IV antibiotics of vancomycin and Zosyn. Denies abdominal pain, denies diarrhea. Creatinine 0.6. Denies pain. Evaluated by oral surgery with recommendations noted and appreciated. Blood sugars controlled on insulin drip. Denies chest pain, palpitations or shortness of breath. Afebrile, WBC 21.8. Blood sugars better controlled on pre-meal insulin, Levemir and metformin. Significant clinical improvement. Patient will be discharged on pre-meal NovoLog insulin-related to 5 days more of steroids, Basalglar insulin, Januvia and Metformin. Patient is being discharged home in a stable condition with guarded prognosis. - Exam GENERAL: Alert and oriented 3, no acute distress LUNGS: Breath sounds clear to auscultation bilaterally and equal. No wheezes rales or rhonchi. HEART: Regular rate and rhythm without murmurs, rubs or gallops.S1S2 Normal ABDOMEN: Soft, nontender, normoactive bowel sounds. NEUROLOGICAL: No focal deficits. The impression and plan of care has been dictated as directed. : I performed a history and examination of this patient, discussed the same with the dictator. I agree with the dictator's note ,documented as a scribe. Any additional findings or plans will be noted. Patient Condition at Discharge: Stable Plan - Discharge Summary Discharge Rx Participant: No New Discharge Prescriptions: New Amoxic-Pot Clav 875-125Mg [Augmentin 875-125] 1 tab PO Q12HR #20 tablet sitaGLIPtin PHOSPHATE [Januvia] 100 mg PO DAILY #30 tab Acetaminophen Tab [Tylenol] 500 mg PO Q4HR PRN tab PRN Reason: Fever And/ Or Pain Insulin Glargine,Hum.rec.anlog [Basaglar Kwikpen U-100] 40 unit SQ 2100 #1 syr predniSONE 10 mg PO DAILY #5 tab Insulin Lispro [Admelog] 10 unit SQ AC-TID #1 vial Continue metFORMIN HCL 1,000 mg PO BID Discharge Medication List metFORMIN HCL 1,000 mg PO BID 01/13/18 [History] Acetaminophen Tab [Tylenol] 500 mg PO Q4HR PRN tab 10/18/18 [Rx] Amoxic-Pot Clav 875-125Mg [Augmentin 875-125] 1 tab PO Q12HR #20 tablet 10/18/18 [Rx] Insulin Glargine,Hum.rec.anlog [Basaglar Kwikpen U-100] 40 unit SQ 2100 #1 syr 10/18/18 [Rx] Insulin Lispro [Admelog] 10 unit SQ AC-TID #1 vial 10/18/18 [Rx] predniSONE 10 mg PO DAILY #5 tab 10/18/18 [Rx] sitaGLIPtin PHOSPHATE [Januvia] 100 mg PO DAILY #30 tab 10/18/18 [Rx] Follow up Appointment(s)/Referral(s): Chuckie Marquez MD [Primary Care Provider] - 10/21/18 11:15 am (Dr. Velazquez appointment. Dr. Marquez booked out until November.) Ramya Soto DDS [REFERRING] - (Please keep previous follow up appointment. Schedule for 1 week) Ambulatory/Diagnostic Orders: Complete Blood Count w/diff [LAB.AMB] Time Frame: 3 Days, Location: None Selected Patient Instructions/Handouts: Dental Abscess (ED), High Protein Diet (DC), Basic Carbohydrate Counting (DC), Managing Diabetes During Sick Days (DC) Activity/Diet/Wound Care/Special Instructions: Case management ensuring convert her, diabetic supplies Diabetic outpatient education classes Diet: Consistent carb Accu-Cheks before meals and at bedtime, maintain log intake to follow-up visit with PCP for further recommendations Activity: Limited until follow up.
== END 2018-10-18 14:45 | disposition home or self-care (01) | DRG 158 ==
LOC: EC 18:51 → 4SSUR 10-15 00:24 → 3SCARD 10-15 13:58 → OBSVTOIN 10-18 06:48
PROVIDERS: ADMIT Family Medicine; ATTEND Family Medicine
DX: K12.2 Cellulitis and abscess of mouth (principal); L02.01 Cutaneous abscess of face; L03.211 Cellulitis of face; E11.65 Type 2 diabetes mellitus with hyperglycemia; K04.7 Periapical abscess without sinus; K21.9 Gastro-esophageal reflux disease without esophagitis; Z79.84 Long term (current) use of oral hypoglycemic drugs; Z87.891 Personal history of nicotine dependence
CPT/HCPCS: 36415; 70487; 70491; 80048; 80053; 80202; 81003; 82947; 83036; 83605; 83735; 85025; 85027; 87040; 96365; 96366; 96375; 99284

== ENCOUNTER 2018-11-24 01:49 | Emergency (ER) | payer OTHER ==
[2018-11-24] MEDS ORDERED: LIDOCAINE 5% PATCH TOPICAL STA (02:44)
[2018-11-24] MEDS ORDERED: KETOROLAC 30 MG/ML 1 ML VIAL IVP STA (02:54)
[2018-11-24] MEDS ORDERED: CYCLOBENZAPRINE 10 MG TAB PO STA (02:55)
--- NOTE | 2018-11-24 03:56 | ED ---
General Adult HPI - General Chief complaint: Back Pain/Injury Stated complaint: Lower back pain Time Seen by Provider: 11/24/18 01:56 Source: patient, family Mode of arrival: ambulatory Limitations: no limitations - History of Present Illness Initial comments: Patient is 28-year-old male presenting to emergency Department with a chief complaint of back pain. Patient reports he developed low back pain without radiation. Patient reports the pain has been ongoing for the past 3-4 days. Patient reports the pain is exacerbated with ambulation and flexion of back. Patient denies any numbness and tingling. Patient denies anesthesia, urinary or bowel incontinence. Patient reports laying supine alleviate the pain. Patient reports taking [id number] analgesics with minimal improvement. Patient denies any abdominal pain. - Related Data Home Medications Medication Instructions Recorded Confirmed metFORMIN HCL 1,000 mg PO BID 01/13/18 10/14/18 Previous Rx's Medication Instructions Recorded Acetaminophen Tab [Tylenol] 500 mg PO Q4HR PRN tab 10/18/18 Amoxic-Pot Clav 875-125Mg 1 tab PO Q12HR #20 tablet 10/18/18 [Augmentin 875-125] Insulin Glargine,Hum.rec.anlog 40 unit SQ 2100 #1 syr 10/18/18 [Basaglar Kwikpen U-100] Insulin Lispro [Admelog] 10 unit SQ AC-TID #1 vial 10/18/18 predniSONE 10 mg PO DAILY #5 tab 10/18/18 sitaGLIPtin PHOSPHATE [Januvia] 100 mg PO DAILY #30 tab 10/18/18 Cyclobenzaprine [Flexeril] 10 mg PO TID PRN #15 tab 11/24/18 Allergies Allergy/AdvReac Type Severity Reaction Status Date / Time No Known Allergies Allergy Verified 11/24/18 01:54 Review of Systems ROS Statement: Those systems with pertinent positive or pertinent negative responses have been documented in the HPI. ROS Other: All systems not noted in ROS Statement are negative. Past Medical History Past Medical History: Diabetes Mellitus, GERD/Reflux History of Any Multi-Drug Resistant Organisms: None Reported Past Surgical History: No Surgical Hx Reported Past Psychological History: No Psychological Hx Reported Smoking Status: Former smoker Past Alcohol Use History: None Reported Past Drug Use History: None Reported General Exam Limitations: no limitations General appearance: alert, in no apparent distress Head exam: Present: atraumatic, normocephalic, normal inspection Eye exam: Present: normal appearance, PERRL, EOMI Pupils: Present: normal accommodation ENT exam: Present: normal exam, normal oropharynx, mucous membranes moist, TM's normal bilaterally, normal external ear exam Neck exam: Present: normal inspection, full ROM Respiratory exam: Present: normal lung sounds bilaterally Cardiovascular Exam: Present: regular rate, normal rhythm, normal heart sounds Extremities exam: Present: normal inspection, full ROM Back exam: Present: normal inspection, tenderness, paraspinal tenderness (Bilateral paraspinal tenderness and lumbar sacral region). Absent: full ROM (Limited range of motion with flexion due to pain), CVA tenderness (R), CVA tenderness (L) Neurological exam: Present: alert, oriented X3 Psychiatric exam: Present: normal affect, normal mood Skin exam: Present: warm, intact, normal color. Absent: rash Course Vital Signs 11/24/18 01:50 Temperature 98.6 F Pulse Rate 89 Respiratory 20 Rate Blood Pressure 127/84 O2 Sat by Pulse 100 Oximetry Medical Decision Making - Medical Decision Making Patient is a 28-year-old male presents emergency Department with a chief complaint of low back pain. Patient reports bilateral pain in the lumbosacral r egion without radiation. Patient reports pain is exacerbated with flexion and ambulation. I observed the patient as he walked to the bathroom and he had no issues with ambulation. Patient doesn't have any vertebral tenderness. Patient was given a lateral done patch, Toradol and Flexeril. On reevaluation patient reports feeling much better and is ready go home. Patient will be discharged with a prescription for Flexeril. Patient advised not to drive or operative heavy machinery when taking medication. Strict return parameters were thoroughly discussed the patient was understanding and agreeable. Patient advised to follow-up with orthopedics if symptoms not improved in 5-7 days. Case discussed with physician. Disposition Clinical Impression: Mechanical back pain Disposition: HOME SELF-CARE Condition: Stable Instructions (If sedation given, give patient instructions): Acute Low Back Pain (ED) Additional Instructions: Please take prescribed medication as directed. Please follow with orthopedics if symptoms are not improving within 5-7 days. Patient to emergency department is symptoms worsen. Prescriptions: Cyclobenzaprine [Flexeril] 10 mg PO TID PRN #15 tab PRN Reason: Muscle Spasm Is patient prescribed a controlled substance at d/c from ED?: No Referrals: Doug Velazquez Jr, DO [Primary Care Provider] - 1-2 days Donavon Rader MD [STAFF PHYSICIAN] - 1-2 days Time of Disposition: 03:56
[2018-11-24 04:20] VITALS: BP 119/79; PULSE 80; RESP 18; TEMP 98
== END 2018-11-24 04:20 | disposition home or self-care (01) ==
LOC: EC 01:49
DX: M54.5 Low back pain (principal); E11.9 Type 2 diabetes mellitus without complications; Z87.891 Personal history of nicotine dependence; Z79.84 Long term (current) use of oral hypoglycemic drugs
CPT/HCPCS: 99283; 96372; J1885

== ENCOUNTER 2018-11-26 01:25 | Emergency (ER) | payer OTHER ==
[2018-11-26 01:43] VITALS: RESP 18; TEMP 98
[2018-11-26] MEDS ORDERED: KETOROLAC 30 MG/ML 1 ML VIAL IM STA (02:41)
[2018-11-26 03:12] LABS: Appearance,Urine Clear (Clear); Bilirubin,Urine Negative (Negative); Blood,Urine Trace (Negative); Color,Urine Light Yellow; Glucose,Urine (UA) 4+ (Negative); Ketones,Urine Trace (Negative); Leukocyte Esterase,Urine Large (Negative); Mucus,Urine Rare /hpf; Nitrite,Urine Negative (Negative); PH, Urine 7.5 (5.0-8.0); Protein,Urine Trace (Negative); RBC,Urine 11 /hpf (0-5); Specific Gravity,Urine 1.029 (1.001-1.035); Urobilinogen,Urine <2.0 mg/dL (<2.0); WBC,Urine 97 /hpf (0-5)
[2018-11-26] MEDS ORDERED: CEPHALEXIN 500MG STARTER PACK 4 CAP BTL PO STA (03:21)
--- NOTE | 2018-11-26 03:28 | ED ---
Back Pain HPI - General Chief Complaint: Back Pain/Injury Stated Complaint: lower back pain Time Seen by Provider: 11/26/18 01:52 Source: patient, EMS - History of Present Illness Initial Comments: Lisa is a 28-year-old male is brought to the emergency department today for reevaluation of right low back pain. Patient reports he seen and evaluated 2 days ago. He developed pain in his lower back after moving a 50 inch television. Patient reports that when he was seen here is given medications in the Lidoderm patch which improved his symptoms however he was unable to fill his prescription he continues to have pain in his back. Patient denies any associated fevers, chills, nausea, vomiting, dysuria or hematuria any history of kidney stones. Patient denies any weakness or numbness in his lower e xtremities. Patient reports he's been able to go about his activities of daily living but today was having trouble sleeping due to the aching pain in his back so he came back to the ER for reevaluation. - Related Data Home Medications Medication Instructions Recorded Confirmed metFORMIN HCL 1,000 mg PO BID 01/13/18 10/14/18 Previous Rx's Medication Instructions Recorded Acetaminophen Tab [Tylenol] 500 mg PO Q4HR PRN tab 10/18/18 Amoxic-Pot Clav 875-125Mg 1 tab PO Q12HR #20 tablet 10/18/18 [Augmentin 875-125] Insulin Glargine,Hum.rec.anlog 40 unit SQ 2100 #1 syr 10/18/18 [Basaglar Kwikpen U-100] Insulin Lispro [Admelog] 10 unit SQ AC-TID #1 vial 10/18/18 predniSONE 10 mg PO DAILY #5 tab 10/18/18 sitaGLIPtin PHOSPHATE [Januvia] 100 mg PO DAILY #30 tab 10/18/18 Cyclobenzaprine [Flexeril] 10 mg PO TID PRN #15 tab 11/24/18 Cephalexin [Keflex] 500 mg PO Q6HR 3 Days #12 cap 11/26/18 Allergies Allergy/AdvReac Type Severity Reaction Status Date / Time No Known Allergies Allergy Verified 11/24/18 01:54 Review of Systems ROS Statement: Those systems with pertinent positive or pertinent negative responses have been documented in the HPI. ROS Other: All systems not noted in ROS Statement are negative. Past Medical History Past Medical History: Diabetes Mellitus, GERD/Reflux History of Any Multi-Drug Resistant Organisms: None Reported Past Surgical History: No Surgical Hx Reported Past Psychological History: No Psychological Hx Reported Smoking Status: Former smoker Past Alcohol Use History: None Reported Past Drug Use History: None Reported General Exam - General Exam Comments Initial Comments: Physical Exam GENERAL: Patient is well-developed and well-nourished. Patient is nontoxic and well- hydrated and is in no distress. HENT: Normocephalic, Atraumatic. EYES: PERRL, EOMI PULMONARY: Unlabored respirations. No audible rales rhonchi or wheezing was noted. CARDIOVASCULAR: There is a regular rate and rhythm without any murmurs gallops or rubs. ABDOMEN: Soft and nontender with normal bowel sounds. SKIN: Skin is clear with no lesions or rashes and otherwise unremarkable. : Deferred NEUROLOGIC: Patient is alert and oriented x3. Moving all extremities spontaneously MUSCULOSKELETAL: Normal extremities with adequate strength and full range of motion. No lower extremity swelling or edema. No calf tenderness. Tenderness to palpation in the right sided paraspinal muscles No flank tenderness PSYCHIATRIC: Normal psychiatric evaluation. Course Vital Signs 11/26/18 11/26/18 01:38 03:41 Temperature 98 F 98 F Pulse Rate 99 88 Respiratory 18 18 Rate Blood Pressure 131/78 123/70 O2 Sat by Pulse 96 99 Oximetry Medical Decision Making - Medical Decision Making She was seen and evaluated history is obtained from the patient History and physical exam relatively unremarkable. Patient appears to have musculoskeletal back pain however given the pain seems to be radiating to his right flank we will obtain a urinalysis Urinalysis is positive for signs of urinary tract infection, patient is uncircumcised, hygiene was discussed with the patient, patient has absolutely no concern for sexually transmitted infections. At this time patient will be discharged home on Keflex - Lab Data Lab Results 11/26/18 Range/Units 03:00 Urine Color Light Yellow Urine Appearance Clear (Clear) Urine pH 7.5 (5.0-8.0) Ur Specific [place] 1.029 (1.001-1.035) Urine Protein Trace H (Negative) Urine Glucose (UA) 4+ H (Negative) Urine Ketones Trace H (Negative) Urine Blood Trace H (Negative) Urine Nitrite Negative (Negative) Urine Bilirubin Negative (Negative) Urine Urobilinogen <2.0 (<2.0) mg/dL Ur Leukocyte Esterase Large H (Negative) Urine RBC 11 H (0-5) /hpf Urine WBC 97 H (0-5) /hpf Urine Mucus Rare H (None) /hpf Disposition Clinical Impression: UTI (urinary tract infection) Disposition: HOME SELF-CARE Condition: Stable Instructions (If sedation given, give patient instructions): Urinary Tract Infection in Men (DC), Acute Low Back Pain (ED) Prescriptions: Cephalexin [Keflex] 500 mg PO Q6HR 3 Days #12 cap Is patient prescribed a controlled substance at d/c from ED?: No Referrals: Doug Velazquez Jr, DO [Primary Care Provider] - 1-2 days
[2018-11-26 03:43] VITALS: BP 123/70; PULSE 88
[2018-11-26] MEDS ORDERED: LIDOCAINE 5% PATCH TOPICAL SCH (09:00)
== END 2018-11-26 03:45 | disposition home or self-care (01) ==
LOC: EC 01:25
DX: N39.0 Urinary tract infection, site not specified (principal); E11.9 Type 2 diabetes mellitus without complications; Z87.891 Personal history of nicotine dependence; Z79.84 Long term (current) use of oral hypoglycemic drugs
CPT/HCPCS: 81001; 99283; 96372; J1885

== ENCOUNTER 2019-02-23 23:13 | Emergency (ER) | payer OTHER ==
[2019-02-23 23:17] VITALS: BP 132/80; PULSE 102; RESP 20; TEMP 99.3
--- NOTE | 2019-02-23 23:57 | XR ---
EXAMINATION TYPE: XR wrist complete RT DATE OF EXAM: 02/23/2019 COMPARISON: NONE HISTORY: Wrist pain TECHNIQUE: 4 views FINDINGS: I see no fracture nor dislocation. Carpal bones are intact. Metacarpals are intact. Joint s paces are fairly normal. IMPRESSION: Negative right wrist exam.
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
[2019-02-24] MEDS: DIPH,PERTUS(ACELL)TETVAC-LF 0.5 ML VIAL IM ONE (00:12)
== END 2019-02-24 00:19 | disposition home or self-care (01) ==
LOC: EC 23:13
DX: S63.501A Unspecified sprain of right wrist, initial encounter (principal); E11.9 Type 2 diabetes mellitus without complications; Z79.84 Long term (current) use of oral hypoglycemic drugs; Z87.891 Personal history of nicotine dependence; W22.09XA Striking against other stationary object, initial encounter; Y92.009 Unspecified place in unspecified non-institutional (private) residence as the place of occurrence of the external cause
CPT/HCPCS: 99283

== ENCOUNTER 2019-03-22 15:39 | Emergency (ER) | payer OTHER ==
[2019-03-22 15:45] VITALS: BP 138/88; PULSE 100; RESP 18; TEMP 97.6
[2019-03-22] MEDS ORDERED: CEPHALEXIN 500MG STARTER PACK 4 CAP BTL PO STA (16:03)
[2019-03-22] MEDS ORDERED: SULFAMETH-TMP DS STARTER PACK 2 TAB BTL PO STA (16:03)
--- NOTE | 2019-03-22 16:07 | ED ---
Skin/Abscess/FB HPI - General Chief complaint: Skin/Abscess/Foreign Body Stated complaint: infected spider bite Time Seen by Provider: 03/22/19 15:46 Source: patient Mode of arrival: ambulatory Limitations: no limitations - History of Present Illness Initial comments: 28yo male with history of DM presenting today for possible spider bite of the abdomen. Patient states he noticed a red bump on abdomen 3-4 days ago. 2 day ago it drainage "yellow fluid" he states it is no longer draining however he noted redness around it. Denies fever, flu like symptoms, denies history of MRSA. Denies any other complaints. Afebrile well appearing on arrival. - Related Data Home Medications Medication Instructions Recorded Confirmed metFORMIN HCL 1,000 mg PO BID 01/13/18 10/14/18 Previous Rx's Medication Instructions Recorded Acetaminophen Tab [Tylenol] 500 mg PO Q4HR PRN tab 10/18/18 Amoxic-Pot Clav 875-125Mg 1 tab PO Q12HR #20 tablet 10/18/18 [Augmentin 875-125] Insulin Glargine,Hum.rec.anlog 40 unit SQ 2100 #1 syr 10/18/18 [Basaglar Kwikpen U-100] Insulin Lispro [Admelog] 10 unit SQ AC-TID #1 vial 10/18/18 predniSONE 10 mg PO DAILY #5 tab 10/18/18 sitaGLIPtin PHOSPHATE [Januvia] 100 mg PO DAILY #30 tab 10/18/18 Cyclobenzaprine [Flexeril] 10 mg PO TID PRN #15 tab 11/24/18 Cephalexin [Keflex] 500 mg PO Q6HR 3 Days #12 cap 11/26/18 Ibuprofen 800 mg PO TID #20 tablet 02/24/19 Cephalexin [Keflex] 500 mg PO Q6HR 7 Days #28 cap 03/22/19 Sulfamethox-Tmp 800-160Mg [Bactrim 1 tab PO Q12HR 7 Days #14 tab 03/22/19 DS 800-160 mg] Allergies Allergy/AdvReac Type Severity Reaction Status Date / Time No Known Allergies Allergy Verified 03/22/19 15:45 Review of Systems ROS Statement: Those systems with pertinent positive or pertinent negative responses have been documented in the HPI. ROS Other: All systems not noted in ROS Statement are negative. Past Medical History Past Medical History: Diabetes Mellitus, GERD/Reflux History of Any Multi-Drug Resistant Organisms: None Reported Past Surgical History: No Surgical Hx Reported Past Psychological History: No Psychological Hx Reported Smoking Status: Former smoker Past Alcohol Use History: None Reported Past Drug Use History: None Reported General Exam Limitations: no limitations Course Vital Signs 03/22/19 15:43 Temperature 97.6 F Pulse Rate 100 Respiratory 18 Rate Blood Pressure 138/88 O2 Sat by Pulse 99 Oximetry Medical Decision Making - Medical Decision Making 28yo male presenting for spider bite. Very mild cellulitis on exam. Induration noted but not obvious fluctuance. Patient was agreeable to attempt at needle aspiration however with attempt there was no purulent drainage obtained, only bright red blood. Patient give bactrim, keflex. Return parameters discussed patient discharged appearing well after discussing case with Dr. Lambert who was agreeable to care plan. Disposition Clinical Impression: Cellulitis Disposition: HOME SELF-CARE Condition: Good Instructions (If sedation given, give patient instructions): Cellulitis (ED), Abscess (ED) Additional Instructions: Please use medication as discussed. Please follow-up with family doctor in the next 2 days.. Please return to emergency room if the symptoms increase or worsen or for any other concerns-watch the redness, pain and swelling if these symptoms are worsening or you develop fever, flu like symptoms (body aches) you need to come to the ER for reevaluation. Prescriptions: Sulfamethox-Tmp 800-160Mg [Bactrim DS 800-160 mg] 1 tab PO Q12HR 7 Days #14 tab Cephalexin [Keflex] 500 mg PO Q6HR 7 Days #28 cap Is patient prescribed a controlled substance at d/c from ED?: No Referrals: Doug Velazquez Jr, DO [Primary Care Provider] - 1-2 days Time of Disposition: 16:06
--- NOTE | 2019-03-27 05:03 | CDI ---
Dear Josefina Silva PA-C: Please do addendum Physical Exam. Thank You, Chris Henao, Associate Teacher. If you have any questions, please contact Molding Machine Tender at [phone]. [facility]
== END 2019-03-22 16:09 | disposition home or self-care (01) ==
LOC: EC 15:39
DX: L03.311 Cellulitis of abdominal wall (principal); T63.301A Toxic effect of unspecified spider venom, accidental (unintentional), initial encounter; E11.9 Type 2 diabetes mellitus without complications; Z87.891 Personal history of nicotine dependence; Z79.84 Long term (current) use of oral hypoglycemic drugs
CPT/HCPCS: 99282

== ENCOUNTER 2019-03-24 02:18 | Emergency (ER) | payer OTHER ==
[2019-03-24 02:27] VITALS: BP 154/89; PULSE 97; RESP 20; TEMP 98.4
[2019-03-24] MEDS ORDERED: IBUPROFEN 600 MG STARTER PACK 4 TAB BTL PO STA (02:45)
[2019-03-24] MEDS ORDERED: ACET/COD 300 MG/30 MG STARTER PACK 6 TAB BTL PO STA (02:45)
[2019-03-24] MEDS ORDERED: SULFAMETH-TMP DS STARTER PACK 2 TAB BTL PO STA (02:45)
--- NOTE | 2019-03-24 02:47 | ED ---
Skin/Abscess/FB HPI - General Chief complaint: Skin/Abscess/Foreign Body Stated complaint: Spider Bite on stomach Time Seen by Provider: 03/24/19 02:35 Source: patient Mode of arrival: ambulatory Limitations: no limitations - History of Present Illness Initial comments: 28-year-old male patient presents to the emergency department today for evaluation of abscess to the abdomen. Patient was concerned it is a spider bite. Patient states he was seen and evaluated for this on March 22. He states that he completed his starter pack of antibiotics and is still not feeling better. Patient states he is having pain to the area. He does notice drainage throughout the day. He denies any fever or chills. Denies nausea or vomiting. Has not taking anything for pain. Patient denies any recent rash, shortness breath, chest pain, abdominal pain, nausea, vomiting, diarrhea, constipation, back pain, numbness, tingling, dizziness, weakness, hematuria, dy suria, urinary urgency, urinary frequency, headache, visual changes, or any other complaints. - Related Data Home Medications Medication Instructions Recorded Confirmed metFORMIN HCL 1,000 mg PO BID 01/13/18 10/14/18 Previous Rx's Medication Instructions Recorded Acetaminophen Tab [Tylenol] 500 mg PO Q4HR PRN tab 10/18/18 Amoxic-Pot Clav 875-125Mg 1 tab PO Q12HR #20 tablet 10/18/18 [Augmentin 875-125] Insulin Glargine,Hum.rec.anlog 40 unit SQ 2100 #1 syr 10/18/18 [Basaglar Kwikpen U-100] Insulin Lispro [Admelog] 10 unit SQ AC-TID #1 vial 10/18/18 predniSONE 10 mg PO DAILY #5 tab 10/18/18 sitaGLIPtin PHOSPHATE [Januvia] 100 mg PO DAILY #30 tab 10/18/18 Cyclobenzaprine [Flexeril] 10 mg PO TID PRN #15 tab 11/24/18 Cephalexin [Keflex] 500 mg PO Q6HR 3 Days #12 cap 11/26/18 Ibuprofen 800 mg PO TID #20 tablet 02/24/19 Cephalexin [Keflex] 500 mg PO Q6HR 7 Days #28 cap 03/22/19 Sulfamethox-Tmp 800-160Mg [Bactrim 1 tab PO Q12HR 7 Days #14 tab 03/22/19 DS 800-160 mg] Allergies Allergy/AdvReac Type Severity Reaction Status Date / Time No Known Allergies Allergy Verified 03/24/19 02:27 Review of Systems ROS Statement: Those systems with pertinent positive or pertinent negative responses have been documented in the HPI. ROS Other: All systems not noted in ROS Statement are negative. Past Medical History Past Medical History: Diabetes Mellitus, GERD/Reflux History of Any Multi-Drug Resistant Organisms: None Reported Past Surgical History: No Surgical Hx Reported Past Psychological History: No Psychological Hx Reported Smoking Status: Current every day smoker Past Alcohol Use History: None Reported Past Drug Use History: None Reported General Exam Limitations: no limitations General appearance: alert, in no apparent distress, other (This is a well- developed, well-nourished adult male patient in no acute distress. Vital signs upon presentation are temperature 98.4F, pulse 97, respirations 20, blood pressure 154/89, pulse ox 100% on room air.) Respiratory exam: Present: normal lung sounds bilaterally. Absent: respiratory distress, wheezes, rales, rhonchi, stridor Cardiovascular Exam: Present: regular rate, normal rhythm, normal heart sounds. Absent: systolic murmur, diastolic murmur, rubs, gallop, clicks GI/Abdominal exam: Present: soft, normal bowel sounds, other (There is a 2 cm x 2 cm abscess to the mid upper abdomen. There is purulent drainage. There are some surrounding erythema.). Absent: distended, tenderness, guarding, rebound, rigid Neurological exam: Present: alert, oriented X3, CN II-XII intact Psychiatric exam: Present: normal affect, normal mood Skin exam: Present: warm, dry, intact, normal color. Absent: rash Course Vital Signs 03/24/19 02:24 Temperature 98.4 F Pulse Rate 97 Respiratory 20 Rate Blood Pressure 154/89 O2 Sat by Pulse 100 Oximetry Medical Decision Making - Medical Decision Making 28-year-old male patient presents to the emergency department today for evaluation of abscess to the abdomen. He was seen and evaluated yesterday and started on Keflex and Bactrim. Patient has taken tablets from his Keflex starter pack but has not taken any Bactrim. Denies taking any medication for pain. He is afebrile normal vital signs. I was able to express further purulent drainage from the abscess. This was sent for culture. He was given doses of Bactrim and pain medication here in the emergency department. He is educated regarding anticipated course of illness and recovery time. He is educated regarding return parameters. He is instructed to follow up with his primary care physician for recheck in 1-2 days. He verbalizes understanding and agrees with this plan. Disposition Clinical Impression: Abdominal wall abscess Disposition: HOME SELF-CARE Condition: Good Instructions (If sedation given, give patient instructions): Abscess (ED) Additional Instructions: Complete antibiotic prescriptions. Take medication as needed for pain. Apply warm compresses to the abdomen 3-4 times daily. Attempt to squeeze the abscess to remove any drainage. Follow-up with your primary care physician for recheck in 1-2 days. Return to the emergency department immediately for any new, worsening, or concerning symptoms. Is patient prescribed a controlled substance at d/c from ED?: No Referrals: Doug Velazquez Jr, [Primary Care Provider] - 1-2 days Time of Disposition: 02:47
== END 2019-03-24 03:16 | disposition home or self-care (01) ==
LOC: EC 02:18
DX: L02.211 Cutaneous abscess of abdominal wall (principal); E11.9 Type 2 diabetes mellitus without complications; F17.200 Nicotine dependence, unspecified, uncomplicated; Z79.84 Long term (current) use of oral hypoglycemic drugs
CPT/HCPCS: 87070; 87077; 87186; 87205; 99283

== ENCOUNTER 2019-04-02 19:08 | Emergency (ER) | payer OTHER ==
[2019-04-02 19:15] VITALS: BP 122/78; PULSE 94; RESP 18; TEMP 98
--- NOTE | 2019-04-02 19:32 | ED ---
General Adult HPI - General Chief complaint: Skin/Abscess/Foreign Body Stated complaint: abscess Time Seen by Provider: 04/02/19 19:18 Source: patient Mode of arrival: ambulatory Limitations: no limitations - History of Present Illness Initial comments: Patient is 28-year-old male presenting to emergency Department with a chief complaint of an abscess. Patient was initially in the ED [place] days ago for the abscess in the abdomen. Patient is essentially coming in today to check the progress of the abscess. Patient reports there is decrease in erythema and no more discharge. Patient states she has been using hydroperoxide to clean it. Denies night sweats fevers or chills. He states states that he has been taking his antibiotics as recommended - Related Data Home Medications Medication Instructions Recorded Confirmed metFORMIN HCL 1,000 mg PO BID 01/13/18 10/14/18 Previous Rx's Medication Instructions Recorded Acetaminophen Tab [Tylenol] 500 mg PO Q4HR PRN tab 10/18/18 Amoxic-Pot Clav 875-125Mg 1 tab PO Q12HR #20 tablet 10/18/18 [Augmentin 875-125] Insulin Glargine,Hum.rec.anlog 40 unit SQ 2100 #1 syr 10/18/18 [Basaglar Kwikpen U-100] Insulin Lispro [Admelog] 10 unit SQ AC-TID #1 vial 10/18/18 predniSONE 10 mg PO DAILY #5 tab 10/18/18 sitaGLIPtin PHOSPHATE [Januvia] 100 mg PO DAILY #30 tab 10/18/18 Cyclobenzaprine [Flexeril] 10 mg PO TID PRN #15 tab 11/24/18 Cephalexin [Keflex] 500 mg PO Q6HR 3 Days #12 cap 11/26/18 Ibuprofen 800 mg PO TID #20 tablet 02/24/19 Cephalexin [Keflex] 500 mg PO Q6HR 7 Days #28 cap 03/22/19 Sulfamethox-Tmp 800-160Mg [Bactrim 1 tab PO Q12HR 7 Days #14 tab 03/22/19 DS 800-160 mg] Allergies Allergy/AdvReac Type Severity Reaction Status Date / Time No Known Allergies Allergy Verified 04/02/19 19:15 Review of Systems ROS Statement: Those systems with pertinent positive or pertinent negative responses have been documented in the HPI. ROS Other: All systems not noted in ROS Statement are negative. Past Medical History Past Medical History: Diabetes Mellitus, GERD/Reflux History of Any Multi-Drug Resistant Organisms: MRSA Date of last positivie culture/infection: 03/24/19 MDRO Source:: Abdomen Past Surgical History: No Surgical Hx Reported Past Psychological History: No Psychological Hx Reported Smoking Status: Current every day smoker Past Alcohol Use History: None Reported Past Drug Use History: None Reported General Exam Limitations: no limitations General appearance: alert, in no apparent distress Head exam: Present: atraumatic, normocephalic, normal inspection Eye exam: Present: normal appearance, PERRL, EOMI Pupils: Present: normal accommodation ENT exam: Present: normal exam, normal oropharynx, mucous membranes moist, TM's normal bilaterally, normal external ear exam Neck exam: Present: normal inspection, full ROM Respiratory exam: Present: normal lung sounds bilaterally Cardiovascular Exam: Present: regular rate, normal rhythm, normal heart sounds GI/Abdominal exam: Present: soft, other (Almost completely healed abscess on his abdomen. No drainage or surrounding erythema.) Extremities exam: Present: normal inspection, full ROM Back exam: Present: normal inspection, full ROM Neurological exam: Present: alert, oriented X3 Psychiatric exam: Present: normal affect, normal mood Skin exam: Present: warm, dry, intact, normal color Course Vital Signs 04/02/19 19:12 Temperature 98.0 F Pulse Rate 94 Respiratory 18 Rate Blood Pressure 122/78 O2 Sat by Pulse 100 Oximetry Medical Decision Making - Medical Decision Making Patient was 8-year-old male presenting to the emergency department with chief complaint of an abscess. Exam patient does have an almost completely healed abscess on his abdomen. Patient had I&D 9 days ago and was prescribed antibiotics. Patient has been taking his antibiotics as requested. The abscess looks well. No drainage or surrounding erythema. Patient advised to continue taking the antibiotics and taking proper care of the wound. Strict return parameters were thoroughly discussed with patient was understanding and agreeable. Case discussed with physician. Disposition Clinical Impression: Encounter for recheck of abscess following incision and drainage, Abscess re- check Disposition: HOME SELF-CARE Condition: Stable Instructions (If sedation given, give patient instructions): Abscess (ED) Additional Instructions: Please follow with primary care. Continue taking prescribed medication as directed. The return to the emergency department if symptoms worsen. Is patient prescribed a controlled substance at d/c from ED?: No Referrals: Doug Velazquez Jr, DO [Primary Care Provider] - 1-2 days Time of Disposition: 19:32
== END 2019-04-02 19:48 | disposition home or self-care (01) ==
LOC: EC 19:08
DX: Z48.817 Encounter for surgical aftercare following surgery on the skin and subcutaneous tissue (principal); E11.9 Type 2 diabetes mellitus without complications; F17.200 Nicotine dependence, unspecified, uncomplicated; Z86.14 Personal history of Methicillin resistant Staphylococcus aureus infection; Z79.84 Long term (current) use of oral hypoglycemic drugs
CPT/HCPCS: 99282

== ENCOUNTER 2019-04-09 21:04 | Emergency (ER) | payer OTHER ==
[2019-04-09] MEDS ORDERED: ONDANSETRON 4 MG/2 ML VIAL IVP STA (22:57)
[2019-04-09] MEDS ORDERED: SODIUM CHLORIDE 0.9% 500 ML 500 ML IV STA (22:57)
[2019-04-09] MEDS ORDERED: SODIUM CHLORIDE 0.9% 1,000 ML IV STA (22:57)
--- NOTE | 2019-04-09 23:14 | XR ---
EXAMINATION TYPE: XR KUB DATE OF EXAM: 04/09/2019 COMPARISON: NONE HISTORY: Abdominal pain TECHNIQUE: 2 views upright FINDINGS: There is no sign of intestinal obstruction or pneumoperitoneum. Fecal pattern is normal. Th ere is no sign of a mass. Lung bases are clear. There are no pathologic calcifications over the kidne ys. IMPRESSION: Nonacute abdomen.
[2019-04-09 23:30] VITALS: RESP 18
[2019-04-09 23:50] LABS: Basophils # (A) 0.1 k/uL (0-0.2); Basophils % (A) 1 %; Eosinophils # (A) 0.4 k/uL (0-0.7); Eosinophils % (A) 3 %; HCT 49.7 % (39.0-53.0); HGB 16.4 gm/dL (13.0-17.5); Lymphocytes # (A) 3.3 k/uL (1.0-4.8); Lymphocytes % (A) 26 %; MCH 28.3 pg (25.0-35.0); MCHC 32.9 g/dL (31.0-37.0); MCV 85.9 fL (80.0-100.0); Monocytes # (A) 0.7 k/uL (0-1.0); Monocytes % (A) 6 %; Neutrophils % (A) 63 %; Platelet Count 320 k/uL (150-450); RBC 5.79 m/uL (4.30-5.90); RDW 12.3 % (11.5-15.5); WBC 12.8 k/uL (3.8-10.6)
[2019-04-09 23:59] LABS: Appearance,Urine Clear (Clear); Bacteria,Urine Rare /hpf; Bilirubin,Urine Negative (Negative); Blood,Urine Negative (Negative); Color,Urine Yellow; Glucose,Urine (UA) 3+ (Negative); Hyaline Casts,Urine 1 /lpf (0-2); Ketones,Urine Negative (Negative); Leukocyte Esterase,Urine Moderate (Negative); Mucus,Urine Occasional /hpf; Nitrite,Urine Negative (Negative); PH, Urine 5.5 (5.0-8.0); Protein,Urine Trace (Negative); RBC,Urine 1 /hpf (0-5); Specific Gravity,Urine 1.015 (1.001-1.035); Urobilinogen,Urine <2.0 mg/dL (<2.0); WBC,Urine 17 /hpf (0-5)
[2019-04-10] LABS: ALT 27 U/L (4-49); AST 31 U/L (17-59); African American GFR (CKD) >90 (>60 ml/min/1.73 sqM); Albumin 4.9 g/dL (3.5-5.0); Alkaline Phosphatase 115 U/L (38-126); Amylase 42 U/L (30-110); Anion Gap 12 mmol/L; Blood Urea Nitrogen 9 mg/dL (9-20); Calcium 9.7 mg/dL (8.4-10.2); Carbon Dioxide 24 mmol/L (22-30); Chloride 100 mmol/L (98-107); Glucose 227 mg/dL (74-99); Non-African American GFR(CKD) >90 (>60 ml/min/1.73 sqM); Potassium 4.5 mmol/L (3.5-5.1); Sodium 136 mmol/L (137-145); Total Bilirubin 0.9 mg/dL (0.2-1.3)
[2019-04-10] MEDS ORDERED: ONDANSETRON 4 MG ODT STARTER PACK 2 TAB BTL PO STA (00:37)
--- NOTE | 2019-04-10 00:39 | ED ---
Abdominal Pain HPI - General Chief Complaint: Abdominal Pain Stated Complaint: Abd Pain Time Seen by Provider: 04/09/19 22:10 Source: patient Mode of arrival: ambulatory Limitations: no limitations - History of Present Illness Initial Comments: 28-year-old male patient presents to the emergency department today for evaluation of vomiting and diarrhea. Patient states having some mild generalized abdominal pain. States symptoms were present for the last 2 days. Denies any hematochezia, melena, hematemesis. Denies fever or chills. States he does have a history of diabetes, does take insulin. States his blood sugars have been mildly elevated. He denies any upper respiratory symptoms. Denies history of abdominal surgery. Denies sick contacts or recent travel. Patient denies any recent rash, shortness breath, chest pain, back pain, numbness, tingling, dizziness, weakness, hematuria, dysuria, urinary urgency, urinary frequency, headache, visual changes, or any other complaints. - Related Data Home Medications Medication Instructions Recorded Confirmed metFORMIN HCL 1,000 mg PO BID 01/13/18 10/14/18 Previous Rx's Medication Instructions Recorded Acetaminophen Tab [Tylenol] 500 mg PO Q4HR PRN tab 10/18/18 Amoxic-Pot Clav 875-125Mg 1 tab PO Q12HR #20 tablet 10/18/18 [Augmentin 875-125] Insulin Glargine,Hum.rec.anlog 40 unit SQ 2100 #1 syr 10/18/18 [Basaglar Kwikpen U-100] Insulin Lispro [Admelog] 10 unit SQ AC-TID #1 vial 10/18/18 predniSONE 10 mg PO DAILY #5 tab 10/18/18 sitaGLIPtin PHOSPHATE [Januvia] 100 mg PO DAILY #30 tab 10/18/18 Cyclobenzaprine [Flexeril] 10 mg PO TID PRN #15 tab 11/24/18 Cephalexin [Keflex] 500 mg PO Q6HR 3 Days #12 cap 11/26/18 Ibuprofen 800 mg PO TID #20 tablet 02/24/19 Cephalexin [Keflex] 500 mg PO Q6HR 7 Days #28 cap 03/22/19 Sulfamethox-Tmp 800-160Mg [Bactrim 1 tab PO Q12HR 7 Days #14 tab 03/22/19 DS 800-160 mg] Ondansetron [Zofran ODT] 4 mg PO Q8HR PRN #10 tab 04/10/19 Allergies Allergy/AdvReac Type Severity Reaction Status Date / Time No Known Allergies Allergy Verified 04/09/19 21:19 Review of Systems ROS Statement: Those systems with pertinent positive or pertinent negative responses have been documented in the HPI. ROS Other: All systems not noted in ROS Statement are negative. Past Medical History Past Medical History: Diabetes Mellitus, GERD/Reflux History of Any Multi-Drug Resistant Organisms: MRSA Date of last positivie culture/infection: 03/24/19 MDRO Source:: Abdomen Past Surgical History: No Surgical Hx Reported Past Psychological History: No Psychological Hx Reported Smoking Status: Current every day smoker Past Alcohol Use History: None Reported Past Drug Use History: None Reported General Exam Limitations: no limitations General appearance: alert, in no apparent distress, other (This is a well- developed, well-nourished adult male patient in no acute distress. Vital signs upon presentation are temperature 97.8F, pulse 95, respirations 20, blood pressure 108/78, pulse ox 100% on room air.) Eye exam: Present: normal appearance, PERRL, EOMI. Absent: scleral icterus, conjunctival injection, periorbital swelling ENT exam: Present: normal exam, normal oropharynx, mucous membranes moist Respiratory exam: Present: normal lung sounds bilaterally. Absent: respiratory distress, wheezes, rales, rhonchi, stridor Cardiovascular Exam: Present: regular rate, normal rhythm, normal heart sounds. Absent: systolic murmur, diastolic murmur, rubs, gallop, clicks GI/Abdominal exam: Present: soft, normal bowel sounds. Absent: distended, tenderness, guarding, rebound, rigid Neurological exam: Present: alert, oriented X3, CN II-XII intact Psychiatric exam: Present: normal affect, normal mood Skin exam: Present: warm, dry, intact, normal color. Absent: rash Course Vital Signs 04/09/19 04/09/19 04/10/19 21:18 23:25 00:53 Temperature 97.8 F 97 F L Pulse Rate 95 84 74 Respiratory 20 18 18 Rate Blood Pressure 108/78 119/71 117/76 O2 Sat by Pulse 100 97 98 Oximetry Medical Decision Making - Medical Decision Making 28-year-old male patient past medical history significant for diabetes mellitus presents to the emergency department today for evaluation of vomiting and diarrhea. Physical examination reveals a soft nontender abdomen. He is afebrile. Vital signs show no major abnormalities. Labs reviewed and are unremarkable. Blood sugar is mildly elevated at 227. Upon reevaluation does report significant improvement of symptoms. He is not feeling hungry. Tolerating oral intake. We will discharge home with prescription for Zofran. He is instructed to follow-up with his primary care physician for recheck in 1-2 days. Return parameters were discussed in detail. He verbalizes understanding and agrees with this plan. - Lab Data Result diagrams: 04/09/19 23:23 04/09/19 23:23 Lab Results 04/09/19 04/09/19 04/09/19 Range/Units 23:23 23:23 23:23 WBC 12.8 H (3.8-10.6) k/uL RBC 5.79 (4.30-5.90) m/uL Hgb 16.4 (13.0-17.5) gm/dL Hct 49.7 (39.0-53.0) % MCV 85.9 (80.0-100.0) fL MCH 28.3 (25.0-35.0) pg MCHC 32.9 (31.0-37.0) g/dL RDW 12.3 (11.5-15.5) % Plt Count 320 (150-450) k/uL Neutrophils % 63 % Lymphocytes % 26 % Monocytes % 6 % Eosinophils % 3 % Basophils % 1 % Neutrophils # 8.0 H (1.3-7.7) k/uL Lymphocytes # 3.3 (1.0-4.8) k/uL Monocytes # 0.7 (0-1.0) k/uL Eosinophils # 0.4 (0-0.7) k/uL Basophils # 0.1 (0-0.2) k/uL Sodium 136 L (137-145) mmol/L Potassium 4.5 (3.5-5.1) mmol/L Chloride 100 (98-107) mmol/L Carbon Dioxide 24 (22-30) mmol/L Anion Gap 12 mmol/L BUN 9 (9-20) mg/dL Creatinine 0.57 L (0.66-1.25) mg/dL Est GFR (CKD-EPI)AfAm >90 (>60 ml/min/1.73 sqM) Est GFR (CKD-EPI)NonAf >90 (>60 ml/min/1.73 sqM) Glucose 227 H (74-99) mg/dL Calcium 9.7 (8.4-10.2) mg/dL Total Bilirubin 0.9 (0.2-1.3) mg/dL AST 31 (17-59) U/L ALT 27 (4-49) U/L Alkaline Phosphatase 115 (38-126) U/L Total Protein 8.0 (6.3-8.2) g/dL Albumin 4.9 (3.5-5.0) g/dL Amylase 42 (30-110) U/L Lipase 193 (23-300) U/L Urine Color Yellow Urine Appearance Clear (Clear) Urine pH 5.5 (5.0-8.0) Ur Specific [place] 1.015 (1.001-1.035) Urine Protein Trace H (Negative) Urine Glucose (UA) 3+ H (Negative) Urine Ketones Negative (Negative) Urine Blood Negative (Negative) Urine Nitrite Negative (Negative) Urine Bilirubin Negative (Negative) Urine Urobilinogen <2.0 (<2.0) mg/dL Ur Leukocyte Esterase Moderate H (Negative) Urine RBC 1 (0-5) /hpf Urine WBC 17 H (0-5) /hpf Urine Bacteria Rare H (None) /hpf Hyaline Casts 1 (0-2) /lpf Urine Mucus Occasional H (None) /hpf Disposition Clinical Impression: Vomiting and diarrhea Disposition: HOME SELF-CARE Condition: Good Instructions (If sedation given, give patient instructions): Acute Nausea and Vomiting (ED), Acute Diarrhea (ED) Additional Instructions: Increase fluids. Start with clear liquid diet and advance as tolerated. Take medications as needed for symptom relief. Follow-up through primary care physician for recheck in 1-2 days. Return to the emergency department immediately for any new, worsening, or concerning symptoms. Prescriptions: Ondansetron [Zofran ODT] 4 mg PO Q8HR PRN #10 tab PRN Reason: Nausea Is patient prescribed a controlled substance at d/c from ED?: No Referrals: Doug Velazquez Jr, [Primary Care Provider] - 1-2 days Time of Disposition: 00:39
[2019-04-10 00:54] VITALS: BP 117/76; PULSE 74; TEMP 97
== END 2019-04-10 00:58 | disposition home or self-care (01) ==
LOC: EC 21:04
DX: R11.10 Vomiting, unspecified (principal); R19.7 Diarrhea, unspecified; E11.65 Type 2 diabetes mellitus with hyperglycemia; R10.84 Generalized abdominal pain; F17.200 Nicotine dependence, unspecified, uncomplicated; Z79.4 Long term (current) use of insulin; Z86.14 Personal history of Methicillin resistant Staphylococcus aureus infection; Z87.19 Personal history of other diseases of the digestive system
CPT/HCPCS: 99284; 96374; 96361; 36415; 80053; 82150; 83690; 85025; 81001; 87086; 74018; J2405; S0119

== ENCOUNTER 2019-04-24 21:59 | Emergency (ER) | payer OTHER ==
[2019-04-24 22:08] VITALS: RESP 18
[2019-04-24] MEDS ORDERED: SODIUM CHLORIDE 0.9% 1,000 ML IV STA (23:42)
[2019-04-24] MEDS ORDERED: ONDANSETRON 4 MG/2 ML VIAL IVP STA (23:42)
--- NOTE | 2019-04-25 00:03 | ED ---
Recheck HPI - General Chief Complaint: Recheck/Abnormal Lab/Rx Stated Complaint: diabetic-high Time Seen by Provider: 04/24/19 23:28 Source: patient Mode of arrival: ambulatory Limitations: no limitations - History of Present Illness Initial Comments: Patient is a 28-year-old male presenting to emergency Department with complaints of elevated sugar levels as well as nausea. Patient states he takes insulin as well as Januvia and metformin. Patient states when he takes the metformin makes him vomit. Patient denies any fever, chest pain, shortness of breath, abdominal pain, headache, dizziness, blurry vision. He states he's only vomited when he t akes his medication. He admits to only mild nausea at this time. He states when he took his blood sugar last it was in the 400s and he took 10 units of insulin just prior to arrival. He has no other complaints at this time. Upon arrival to the ER, his vital signs are stable. - Related Data Home Medications Medication Instructions Recorded Confirmed metFORMIN HCL 1,000 mg PO BID 01/13/18 10/14/18 Previous Rx's Medication Instructions Recorded Acetaminophen Tab [Tylenol] 500 mg PO Q4HR PRN tab 10/18/18 Amoxic-Pot Clav 875-125Mg 1 tab PO Q12HR #20 tablet 10/18/18 [Augmentin 875-125] Insulin Glargine,Hum.rec.anlog 40 unit SQ 2100 #1 syr 10/18/18 [Basaglar Kwikpen U-100] Insulin Lispro [Admelog] 10 unit SQ AC-TID #1 vial 10/18/18 predniSONE 10 mg PO DAILY #5 tab 10/18/18 sitaGLIPtin PHOSPHATE [Januvia] 100 mg PO DAILY #30 tab 10/18/18 Cyclobenzaprine [Flexeril] 10 mg PO TID PRN #15 tab 11/24/18 Cephalexin [Keflex] 500 mg PO Q6HR 3 Days #12 cap 11/26/18 Ibuprofen 800 mg PO TID #20 tablet 02/24/19 Cephalexin [Keflex] 500 mg PO Q6HR 7 Days #28 cap 03/22/19 Sulfamethox-Tmp 800-160Mg [Bactrim 1 tab PO Q12HR 7 Days #14 tab 03/22/19 DS 800-160 mg] Ondansetron [Zofran ODT] 4 mg PO Q8HR PRN #10 tab 04/10/19 Allergies Allergy/AdvReac Type Severity Reaction Status Date / Time No Known Allergies Allergy Verified 04/24/19 22:06 Review of Systems ROS Statement: Those systems with pertinent positive or pertinent negative responses have been documented in the HPI. ROS Other: All systems not noted in ROS Statement are negative. Past Medical History Past Medical History: Diabetes Mellitus, GERD/Reflux History of Any Multi-Drug Resistant Organisms: MRSA Date of last positivie culture/infection: 03/24/19 MDRO Source:: Abdomen Past Surgical History: No Surgical Hx Reported Past Psychological History: No Psychological Hx Reported Smoking Status: Current every day smoker Past Alcohol Use History: None Reported Past Drug Use History: None Reported General Exam - General Exam Comments Initial Comments: GENERAL: Well-appearing, well-nourished and in no acute distress. HEAD: Atraumatic, normocephalic. EYES: Pupils equal round and reactive to light, extraocular movements intact, sclera anicteric, conjunctiva are normal. ENT: TMs normal, nares patent, oropharynx clear without exudates. Moist mucous membranes. NECK: Normal range of motion, supple without lymphadenopathy or JVD. LUNGS: Breath sounds clear to auscultation bilaterally and equal. No wheezes rales or rhonchi. HEART: Regular rate and rhythm without murmurs, rubs or gallops. ABDOMEN: Soft, nontender, normoactive bowel sounds. No guarding, no rebound. No masses appreciated. : Deferred EXTREMITIES: Normal range of motion, no pitting or edema. No clubbing or cyanosis. NEUROLOGICAL: Normal speech, normal gait. PSYCH: Normal mood, normal affect. SKIN: Warm, Dry, normal turgor, no rashes or lesions noted. Limitations: no limitations Course Vital Signs 04/24/19 04/25/19 22:06 01:41 Temperature 97.9 F 98 F Pulse Rate 95 82 Respiratory 18 18 Rate Blood Pressure 136/77 127/77 O2 Sat by Pulse 100 97 Oximetry Medical Decision Making - Medical Decision Making Patient is a 28-year-old male presenting with elevated glucose levels as well as mild nausea. Patient states before the ER he checked his sugar and it was in the 400s. Patient gave himself 10 units of insulin. Vitals are stable upon arrival. Patient's exam is unremarkable. Lab work shows glucose at 203, urine shows 4+ glucose, no signs of infection. Patient is given fluids as well as Zofran. Patient will be given a few tablets of Zofran at discharge and will follow up with his PCP regarding his medications. He is in agreement with this plan of care. Return parameters were discussed with the patient he verbalizes understanding. - Lab Data Result diagrams: 04/24/19 23:48 04/24/19 23:48 Lab Results 04/24/19 04/24/19 04/24/19 Range/Units 23:48 23:48 23:48 WBC 14.2 H (3.8-10.6) k/uL RBC 5.22 (4.30-5.90) m/uL Hgb 15.3 (13.0-17.5) gm/dL Hct 44.4 (39.0-53.0) % MCV 85.1 (80.0-100.0) fL MCH 29.4 (25.0-35.0) pg MCHC 34.5 (31.0-37.0) g/dL RDW 12.1 (11.5-15.5) % Plt Count 350 (150-450) k/uL Neutrophils % 59 % Lymphocytes % 28 % Monocytes % 6 % Eosinophils % 3 % Basophils % 1 % Neutrophils # 8.4 H (1.3-7.7) k/uL Lymphocytes # 4.0 (1.0-4.8) k/uL Monocytes # 0.9 (0-1.0) k/uL Eosinophils # 0.5 (0-0.7) k/uL Basophils # 0.2 (0-0.2) k/uL Sodium 136 L (137-145) mmol/L Potassium 4.2 (3.5-5.1) mmol/L Chloride 99 (98-107) mmol/L Carbon Dioxide 26 (22-30) mmol/L Anion Gap 11 mmol/L BUN 9 (9-20) mg/dL Creatinine 0.64 L (0.66-1.25) mg/dL Est GFR (CKD-EPI)AfAm >90 (>60 ml/min/1.73 sqM) Est GFR (CKD-EPI)NonAf >90 (>60 ml/min/1.73 sqM) Glucose 203 H (74-99) mg/dL Calcium 10.1 (8.4-10.2) mg/dL Total Bilirubin 0.6 (0.2-1.3) mg/dL AST 25 (17-59) U/L ALT 24 (4-49) U/L Alkaline Phosphatase 110 (38-126) U/L Total Protein 7.8 (6.3-8.2) g/dL Albumin 5.0 (3.5-5.0) g/dL Urine Color Yellow Urine Appearance Cloudy (Clear) Urine pH 6.5 (5.0-8.0) Ur Specific [place] 1.043 H (1.001-1.035) Urine Protein Negative (Negative) Urine Glucose (UA) 4+ H (Negative) Urine Ketones Trace H (Negative) Urine Blood Negative (Negative) Urine Nitrite Negative (Negative) Urine Bilirubin Negative (Negative) Urine Urobilinogen <2.0 (<2.0) mg/dL Ur Leukocyte Esterase Negative (Negative) Urine RBC 1 (0-5) /hpf Urine WBC 3 (0-5) /hpf Ur Squamous Epith Cells <1 (0-4) /hpf Amorphous Sediment Occasional H (None) /hpf Urine Mucus Rare H (None) /hpf Disposition Clinical Impression: Hyperglycemia, Nausea & vomiting Disposition: HOME SELF-CARE Condition: Stable Instructions (If sedation given, give patient instructions): Diabetic Hyperglycemia (ED) Additional Instructions: Please return to the Emergency Department if symptoms worsen or any other concerns. Continue to monitor glucose levels. Follow-up with PCP in 1-3 days. Is patient prescribed a controlled substance at d/c from ED?: No Referrals: Chuckie Marquez MD [Primary Care Provider] - 1-2 days
[2019-04-25 00:05] LABS: Amorphous Sediment,Urine Occasional /hpf; Appearance,Urine Cloudy (Clear); Bilirubin,Urine Negative (Negative); Blood,Urine Negative (Negative); Color,Urine Yellow; Glucose,Urine (UA) 4+ (Negative); Ketones,Urine Trace (Negative); Leukocyte Esterase,Urine Negative (Negative); Mucus,Urine Rare /hpf; Nitrite,Urine Negative (Negative); PH, Urine 6.5 (5.0-8.0); Protein,Urine Negative (Negative); RBC,Urine 1 /hpf (0-5); Specific Gravity,Urine 1.043 (1.001-1.035); Squamous Epithelial Cell,Urine <1 /hpf (0-4); Urobilinogen,Urine <2.0 mg/dL (<2.0); WBC,Urine 3 /hpf (0-5)
[2019-04-25 00:15] LABS: Basophils # (A) 0.2 k/uL (0-0.2); Basophils % (A) 1 %; Eosinophils # (A) 0.5 k/uL (0-0.7); Eosinophils % (A) 3 %; HCT 44.4 % (39.0-53.0); HGB 15.3 gm/dL (13.0-17.5); Lymphocytes % (A) 28 %; MCH 29.4 pg (25.0-35.0); MCHC 34.5 g/dL (31.0-37.0); MCV 85.1 fL (80.0-100.0); Mean Platelet Volume 7.1; Monocytes # (A) 0.9 k/uL (0-1.0); Monocytes % (A) 6 %; Neutrophils # (A) 8.4 k/uL (1.3-7.7); Neutrophils % (A) 59 %; Platelet Count 350 k/uL (150-450); RBC 5.22 m/uL (4.30-5.90); RDW 12.1 % (11.5-15.5); WBC 14.2 k/uL (3.8-10.6)
[2019-04-25 00:17] LABS: ALT 24 U/L (4-49); AST 25 U/L (17-59); African American GFR (CKD) >90 (>60 ml/min/1.73 sqM); Alkaline Phosphatase 110 U/L (38-126); Anion Gap 11 mmol/L; Blood Urea Nitrogen 9 mg/dL (9-20); Calcium 10.1 mg/dL (8.4-10.2); Carbon Dioxide 26 mmol/L (22-30); Chloride 99 mmol/L (98-107); Glucose 203 mg/dL (74-99); Non-African American GFR(CKD) >90 (>60 ml/min/1.73 sqM); Potassium 4.2 mmol/L (3.5-5.1); Sodium 136 mmol/L (137-145); Total Bilirubin 0.6 mg/dL (0.2-1.3); Total Protein 7.8 g/dL (6.3-8.2)
[2019-04-25] MEDS ORDERED: ONDANSETRON 4 MG ODT STARTER PACK 2 TAB BTL PO STA (01:26)
[2019-04-25 01:43] VITALS: BP 127/77; PULSE 82; TEMP 98
== END 2019-04-25 01:42 | disposition home or self-care (01) ==
LOC: EC 21:59
DX: E11.65 Type 2 diabetes mellitus with hyperglycemia (principal); R11.2 Nausea with vomiting, unspecified; F17.200 Nicotine dependence, unspecified, uncomplicated; Z79.84 Long term (current) use of oral hypoglycemic drugs
CPT/HCPCS: 36415; 80053; 85025; 81001; 99284; 96374; 96361; J2405; S0119

== ENCOUNTER 2019-06-08 13:42 | Emergency (ER) | payer OTHER ==
[2019-06-08 14:02] VITALS: BP 130/83; PULSE 70; RESP 18; TEMP 98.1
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
== END 2019-06-08 14:16 | disposition home or self-care (01) ==
LOC: EC 13:42
DX: S30.22XA Contusion of scrotum and testes, initial encounter (principal); E11.9 Type 2 diabetes mellitus without complications; F17.200 Nicotine dependence, unspecified, uncomplicated; Z79.84 Long term (current) use of oral hypoglycemic drugs; Z86.14 Personal history of Methicillin resistant Staphylococcus aureus infection; W22.8XXA Striking against or struck by other objects, initial encounter
CPT/HCPCS: 99283

== ENCOUNTER 2019-09-17 22:23 | Emergency (ER) | payer OTHER ==
[2019-09-17 22:38] VITALS: BP 125/70; TEMP 98.4
--- NOTE | 2019-09-17 23:10 | ED ---
Lower Extremity Injury HPI - General Chief Complaint: Extremity Injury, Lower Stated Complaint: R Ankle Injury Time Seen by Provider: 09/17/19 22:58 Source: patient, family Mode of arrival: wheelchair Limitations: no limitations - History of Present Illness MD Complaint: ankle injury -: hour(s) Injury: Ankle: Right Type of Injury: inversion Place: home Severity: moderate Improves With: nothing Worsens With: weight bearing, palpation Context: fall Associated Symptoms: able to partially bear weight - Related Data Home Medications Medication Instructions Recorded Confirmed metFORMIN HCL 1,000 mg PO BID 01/13/18 10/14/18 Previous Rx's Medication Instructions Recorded Acetaminophen Tab [Tylenol] 500 mg PO Q4HR PRN tab 10/18/18 Amoxic-Pot Clav 875-125Mg 1 tab PO Q12HR #20 tablet 10/18/18 [Augmentin 875-125] Insulin Glargine,Hum.rec.anlog 40 unit SQ 2100 #1 syr 10/18/18 [Basaglar Kwikpen U-100] Insulin Lispro [Admelog] 10 unit SQ AC-TID #1 vial 10/18/18 predniSONE 10 mg PO DAILY #5 tab 10/18/18 sitaGLIPtin PHOSPHATE [Januvia] 100 mg PO DAILY #30 tab 10/18/18 Cyclobenzaprine [Flexeril] 10 mg PO TID PRN #15 tab 11/24/18 Cephalexin [Keflex] 500 mg PO Q6HR 3 Days #12 cap 11/26/18 Ibuprofen 800 mg PO TID #20 tablet 02/24/19 Cephalexin [Keflex] 500 mg PO Q6HR 7 Days #28 cap 03/22/19 Sulfamethox-Tmp 800-160Mg [Bactrim 1 tab PO Q12HR 7 Days #14 tab 03/22/19 DS 800-160 mg] Ondansetron [Zofran ODT] 4 mg PO Q8HR PRN #10 tab 04/10/19 Ibuprofen 800 mg PO TID #20 tablet 09/17/19 Allergies Allergy/AdvReac Type Severity Reaction Status Date / Time No Known Allergies Allergy Verified 06/08/19 14:02 Review of Systems ROS Statement: Those systems with pertinent positive or pertinent negative responses have been documented in the HPI. ROS Other: All systems not noted in ROS Statement are negative. Musculoskeletal: Reports: as per HPI, joint swelling, arthralgia Neurological: Denies: weakness, numbness Past Medical History Past Medical History: Diabetes Mellitus, GERD/Reflux History of Any Multi-Drug Resistant Organisms: MRSA Date of last positivie culture/infection: 03/24/19 MDRO Source:: Abdomen Past Surgical History: No Surgical Hx Reported Past Psychological History: No Psychological Hx Reported Smoking Status: Current every day smoker Past Alcohol Use History: None Reported Past Drug Use History: None Reported General Exam Limitations: no limitations General appearance: alert, in no apparent distress Cardiovascular Exam: Present: other (Dorsalis pedis and posterior tibialis pulses are normal in strength. Capillary refill normal.) Extremities exam: Present: full ROM, tenderness (Lateral malleolus), normal capillary refill. Absent: pedal edema, joint swelling, calf tenderness Right Knee exam: Present: normal inspection, full ROM. Absent: tenderness, swelling, abrasion, laceration Lower Leg exam: Present: normal inspection, full ROM. Absent: tenderness, swelling, abrasion Ankle exam: Present: normal inspection, full ROM, tenderness, swelling. Absent: abrasion, laceration, ecchymosis, deformity, crepitus, dislocation Foot/Toe exam: Present: normal inspection, full ROM. Absent: tenderness, swelling, abrasion, laceration, ecchymosis, deformity, crepitus, dislocation Neurovascular tendon exam: Present: no vascular compromise, abnormal 2-point discrimination. Absent: pulse deficit, abnormal cap refill, motor deficit, sensory deficit, tendon deficit Neurological exam: Absent: motor sensory deficit (Sensory motor exam of the right foot normal) Skin exam: Present: warm, dry, intact, normal color. Absent: rash Course Vital Signs 09/17/19 22:34 Temperature 98.4 F Pulse Rate 106 H Respiratory 18 Rate Blood Pressure 125/70 O2 Sat by Pulse 97 Oximetry Disposition Clinical Impression: Ankle sprain Disposition: HOME SELF-CARE Condition: Good Instructions (If sedation given, give patient instructions): Ankle Sprain (ED) Prescriptions: Ibuprofen 800 mg PO TID #20 tablet Is patient prescribed a controlled substance at d/c from ED?: No Referrals: Doug Velazquez Jr, DO [Primary Care Provider] - 1-2 days
--- NOTE | 2019-09-17 23:36 | XR ---
EXAMINATION TYPE: XR ankle complete RT DATE OF EXAM: 09/17/2019 COMPARISON: NONE HISTORY: Ankle pain TECHNIQUE: 3 views FINDINGS: There is an Achilles calcaneal spur. Ankle mortise is anatomic. I see no fracture nor dislo cation. IMPRESSION: Calcaneal spurring. No fracture seen.
[2019-09-17] MEDS ORDERED: IBUPROFEN 400 MG TAB PO STA (23:58)
[2019-09-18 00:24] VITALS: PULSE 92; RESP 16
== END 2019-09-18 00:23 | disposition home or self-care (01) ==
LOC: EC 22:23
DX: S93.401A Sprain of unspecified ligament of right ankle, initial encounter (principal); E11.9 Type 2 diabetes mellitus without complications; F17.200 Nicotine dependence, unspecified, uncomplicated; Z79.84 Long term (current) use of oral hypoglycemic drugs; Z86.14 Personal history of Methicillin resistant Staphylococcus aureus infection; W01.0XXA Fall on same level from slipping, tripping and stumbling without subsequent striking against object, initial encounter; Y93.89 Activity, other specified; Y92.009 Unspecified place in unspecified non-institutional (private) residence as the place of occurrence of the external cause
CPT/HCPCS: 99283

== ENCOUNTER 2020-07-09 19:42 | Observation (INO) | payer OTHER ==
[2020-07-09 20:19] LABS: Basophils # (A) 0.2 k/uL (0-0.2); Basophils % (A) 1 %; Eosinophils # (A) 0.6 k/uL (0-0.7); Eosinophils % (A) 4 %; HCT 44.5 % (39.0-53.0); HGB 15.7 gm/dL (13.0-17.5); Lymphocytes # (A) 2.4 k/uL (1.0-4.8); Lymphocytes % (A) 15 %; MCH 29.6 pg (25.0-35.0); MCHC 35.2 g/dL (31.0-37.0); Mean Platelet Volume 6.7; Monocytes # (A) 1.3 k/uL (0-1.0); Monocytes % (A) 8 %; Neutrophils # (A) 11.9 k/uL (1.3-7.7); Neutrophils % (A) 72 %; Platelet Count 321 k/uL (150-450); RBC 5.31 m/uL (4.30-5.90); RDW 12.8 % (11.5-15.5); WBC 16.5 k/uL (3.8-10.6)
[2020-07-09 20:29] LABS: ALT 19 U/L (4-49); AST 27 U/L (17-59); African American GFR (CKD) >90 (>60 ml/min/1.73 sqM); Albumin 4.4 g/dL (3.5-5.0); Alkaline Phosphatase 128 U/L (38-126); Amylase 34 U/L (30-110); Anion Gap 10 mmol/L; Blood Urea Nitrogen 17 mg/dL (9-20); Calcium 9.2 mg/dL (8.4-10.2); Carbon Dioxide 23 mmol/L (22-30); Chloride 98 mmol/L (98-107); Glucose 415 mg/dL (74-99); Lipase 191 U/L (23-300); Non-African American GFR(CKD) >90 (>60 ml/min/1.73 sqM); Potassium 4.4 mmol/L (3.5-5.1); Sodium 131 mmol/L (137-145); Total Bilirubin 0.4 mg/dL (0.2-1.3); Total Protein 7.2 g/dL (6.3-8.2)
--- NOTE | 2020-07-09 20:39 | XR ---
EXAMINATION TYPE: XR KUB DATE OF EXAM: 07/09/2020 COMPARISON: 04/09/2019 HISTORY: Abdominal pain TECHNIQUE: 2 views upright FINDINGS: There is no sign of intestinal obstruction or pneumoperitoneum. Fecal pattern is normal. Th ere is no sign of a mass. Lung bases are clear. There are no pathologic calcifications over the kidne ys. IMPRESSION: Nonacute abdomen. No change.
[2020-07-09 21:07] LABS: Appearance,Urine Clear (Clear); Bilirubin,Urine Negative (Negative); Blood,Urine Negative (Negative); Color,Urine Light Yellow; Glucose,Urine (UA) 4+ (Negative); Ketones,Urine 1+ (Negative); Leukocyte Esterase,Urine Negative (Negative); Nitrite,Urine Negative (Negative); Protein,Urine Trace (Negative); Specific Gravity,Urine 1.045 (1.001-1.035); Urobilinogen,Urine <2.0 mg/dL (<2.0)
[2020-07-09] MEDS ORDERED: MORPHINE SULFATE 4 MG/ML SYRINGE IVP STA (22:50)
[2020-07-09] MEDS ORDERED: MORPHINE SULFATE 4 MG/ML SYRINGE IVP PRN (22:50)
[2020-07-09] MEDS ORDERED: SODIUM CHLORIDE 0.9% 1,000 ML IV STA ×2 (22:50→22:51)
[2020-07-09] MEDS ORDERED: ONDANSETRON 4 MG/2 ML VIAL IVP STA (22:50)
--- NOTE | 2020-07-09 23:44 | ED ---
Abdominal Pain HPI - General Chief Complaint: Abdominal Pain Stated Complaint: ABD pain Time Seen by Provider: 07/09/20 22:37 Source: patient, RN notes reviewed, old records reviewed Mode of arrival: ambulatory Limitations: no limitations - History of Present Illness Initial Comments: This is a 30-year-old male who suffers from diabetes coming in for evaluation of abdominal pain right flank pain rating to right groin. Nausea no vomiting no fevers. No prior history of similar pain. Patient states he cannot of dialysis but occasionally, has not been taking his insulin MD Complaint: abdominal pain, flank pain (Right-sided flank pain) -: days(s) Location: RLQ Radiation: suprapubic Migration to: suprapubic Severity: moderate Severity scale (1-10): 7 Quality: sharp Consistency: constant Improves With: nothing Worsens With: nothing Context: other (none) Associated Symptoms: nausea Treatments Prior to Arrival: other (none) - Related Data Home Medications Medication Instructions Recorded Confirmed metFORMIN HCL 1,000 mg PO BID 01/13/18 10/14/18 Previous Rx's Medication Instructions Recorded Acetaminophen Tab [Tylenol] 500 mg PO Q4HR PRN tab 10/18/18 Amoxic-Pot Clav 875-125Mg 1 tab PO Q12HR #20 tablet 10/18/18 [Augmentin 875-125] Insulin Glargine,Hum.rec.anlog 40 unit SQ 2100 #1 syr 10/18/18 [Basaglar Kwikpen U-100] Insulin Lispro [Admelog] 10 unit SQ AC-TID #1 vial 10/18/18 predniSONE 10 mg PO DAILY #5 tab 10/18/18 sitaGLIPtin PHOSPHATE [Januvia] 100 mg PO DAILY #30 tab 10/18/18 Cyclobenzaprine [Flexeril] 10 mg PO TID PRN #15 tab 11/24/18 cephALEXin [Keflex] 500 mg PO Q6HR 3 Days #12 cap 11/26/18 Ibuprofen 800 mg PO TID #20 tablet 02/24/19 Cephalexin [Keflex] 500 mg PO Q6HR 7 Days #28 cap 03/22/19 Sulfamethox-Tmp 800-160Mg [Bactrim 1 tab PO Q12HR 7 Days #14 tab 03/22/19 DS 800-160 mg] Ondansetron [Zofran ODT] 4 mg PO Q8HR PRN #10 tab 04/10/19 Ibuprofen 800 mg PO TID #20 tablet 09/17/19 Allergies Allergy/AdvReac Type Severity Reaction Status Date / Time No Known Allergies Allergy Verified 06/08/19 14:02 Review of Systems ROS Statement: Those systems with pertinent positive or pertinent negative responses have been documented in the HPI. ROS Other: All systems not noted in ROS Statement are negative. Past Medical History Past Medical History: Diabetes Mellitus, GERD/Reflux History of Any Multi-Drug Resistant Organisms: MRSA Date of last positivie culture/infection: 03/24/19 MDRO Source:: Abdomen Past Surgical History: No Surgical Hx Reported Past Psychological History: No Psychological Hx Reported Smoking Status: Current every day smoker Past Alcohol Use History: None Reported Past Drug Use History: None Reported General Exam Limitations: no limitations General appearance: alert, in no apparent distress Head exam: Present: atraumatic, normocephalic, normal inspection Eye exam: Present: normal appearance, PERRL, EOMI. Absent: scleral icterus, conjunctival injection, periorbital swelling ENT exam: Present: normal exam, mucous membranes moist Neck exam: Present: normal inspection. Absent: tenderness, meningismus, lymphadenopathy Respiratory exam: Present: normal lung sounds bilaterally. Absent: respiratory distress, wheezes, rales, rhonchi, stridor Cardiovascular Exam: Present: regular rate, normal rhythm, normal heart sounds. Absent: systolic murmur, diastolic murmur, rubs, gallop, clicks GI/Abdominal exam: Present: soft, normal bowel sounds. Absent: distended, tenderness, guarding, rebound, rigid Extremities exam: Present: normal inspection, full ROM, normal capillary refill. Absent: tenderness, pedal edema, joint swelling, calf tenderness Back exam: Present: normal inspection Neurological exam: Present: alert, oriented X3, CN II-XII intact Psychiatric exam: Present: normal affect, normal mood Skin exam: Present: warm, dry, intact, normal color. Absent: rash Course Vital Signs 07/09/20 20:01 Temperature 98.2 F Pulse Rate 99 Respiratory 18 Rate Blood Pressure 127/71 O2 Sat by Pulse 97 Oximetry - Reevaluation(s) Reevaluation #1: 07/10/20 00:31 Medical records reviewed Reevaluation #2: 07/10/20 00:31 Patient's blood sugar symptoms are improved here in the ER - Consultations Consultation #1: Spoke with Dr. Lira will see patient tomorrow Consultation #2: [place] with Dr. Marquez who will admit this patient Medical Decision Making - Medical Decision Making 30 male DEL with right flank pain, elevated white count a little blood sugar. Patient will be admitted for nephritis IV antibiotics and can be discharged home - Lab Data Result diagrams: 07/09/20 20:12 07/09/20 20:12 Lab Results 07/09/20 07/09/20 07/09/20 Range/Units 20:12 20:12 20:12 WBC 16.5 H (3.8-10.6) k/uL RBC 5.31 (4.30-5.90) m/uL Hgb 15.7 (13.0-17.5) gm/dL Hct 44.5 (39.0-53.0) % MCV 84.0 (80.0-100.0) fL MCH 29.6 (25.0-35.0) pg MCHC 35.2 (31.0-37.0) g/dL RDW 12.8 (11.5-15.5) % Plt Count 321 (150-450) k/uL MPV 6.7 Neutrophils % 72 % Lymphocytes % 15 % Monocytes % 8 % Eosinophils % 4 % Basophils % 1 % Neutrophils # 11.9 H (1.3-7.7) k/uL Lymphocytes # 2.4 (1.0-4.8) k/uL Monocytes # 1.3 H (0-1.0) k/uL Eosinophils # 0.6 (0-0.7) k/uL Basophils # 0.2 (0-0.2) k/uL Sodium 131 L (137-145) mmol/L Potassium 4.4 (3.5-5.1) mmol/L Chloride 98 (98-107) mmol/L Carbon Dioxide 23 (22-30) mmol/L Anion Gap 10 mmol/L BUN 17 (9-20) mg/dL Creatinine 0.53 L (0.66-1.25) mg/dL Est GFR (CKD-EPI)AfAm >90 (>60 ml/min/1.73 sqM) Est GFR (CKD-EPI)NonAf >90 (>60 ml/min/1.73 sqM) Glucose 415 H (74-99) mg/dL Plasma Lactic Acid Jesu (0.7-2.0) mmol/L Calcium 9.2 (8.4-10.2) mg/dL Total Bilirubin 0.4 (0.2-1.3) mg/dL AST 27 (17-59) U/L ALT 19 (4-49) U/L Alkaline Phosphatase 128 H (38-126) U/L Total Protein 7.2 (6.3-8.2) g/dL Albumin 4.4 (3.5-5.0) g/dL Amylase 34 (30-110) U/L Lipase 191 (23-300) U/L Urine Color Light Yellow Urine Appearance Clear (Clear) Urine pH 5.0 (5.0-8.0) Ur Specific [place] 1.045 H (1.001-1.035) Urine Protein Trace H (Negative) Urine Glucose (UA) 4+ H (Negative) Urine Ketones 1+ H (Negative) Urine Blood Negative (Negative) Urine Nitrite Negative (Negative) Urine Bilirubin Negative (Negative) Urine Urobilinogen <2.0 (<2.0) mg/dL Ur Leukocyte Esterase Negative (Negative) 07/09/20 Range/Units 20:12 WBC (3.8-10.6) k/uL RBC (4.30-5.90) m/uL Hgb (13.0-17.5) gm/dL Hct (39.0-53.0) % MCV (80.0-100.0) fL MCH (25.0-35.0) pg MCHC (31.0-37.0) g/dL RDW (11.5-15.5) % Plt Count (150-450) k/uL MPV Neutrophils % % Lymphocytes % % Monocytes % % Eosinophils % % Basophils % % Neutrophils # (1.3-7.7) k/uL Lymphocytes # (1.0-4.8) k/uL Monocytes # (0-1.0) k/uL Eosinophils # (0-0.7) k/uL Basophils # (0-0.2) k/uL Sodium (137-145) mmol/L Potassium (3.5-5.1) mmol/L Chloride (98-107) mmol/L Carbon Dioxide (22-30) mmol/L Anion Gap mmol/L BUN (9-20) mg/dL Creatinine (0.66-1.25) mg/dL Est GFR (CKD-EPI)AfAm (>60 ml/min/1.73 sqM) Est GFR (CKD-EPI)NonAf (>60 ml/min/1.73 sqM) Glucose (74-99) mg/dL Plasma Lactic Acid Jesu 1.0 (0.7-2.0) mmol/L Calcium (8.4-10.2) mg/dL Total Bilirubin (0.2-1.3) mg/dL AST (17-59) U/L ALT (4-49) U/L Alkaline Phosphatase (38-126) U/L Total Protein (6.3-8.2) g/dL Albumin (3.5-5.0) g/dL Amylase (30-110) U/L Lipase (23-300) U/L Urine Color Urine Appearance (Clear) Urine pH (5.0-8.0) Ur Specific [place] (1.001-1.035) Urine Protein (Negative) Urine Glucose (UA) (Negative) Urine Ketones (Negative) Urine Blood (Negative) Urine Nitrite (Negative) Urine Bilirubin (Negative) Urine Urobilinogen (<2.0) mg/dL Ur Leukocyte Esterase (Negative) - Radiology Data Radiology results: report reviewed (CT head and pelvis positive for pallor for his right kidney), image reviewed Disposition Clinical Impression: Diabetes mellitus, Hyperglycemia, Acute pyelonephritis, Type 2 diabetes mellitus with hyperglycemia, Abdominal pain Disposition: ADMITTED IP TO THIS HOSP Condition: Fair Is patient prescribed a controlled substance at d/c from ED?: No
--- NOTE | 2020-07-10 | CT ---
EXAMINATION TYPE: CT abdomen pelvis w con DATE OF EXAM: 07/09/2020 COMPARISON: 10/20/2017 HISTORY: right flank pain that radiates to front CT DLP: 1057.1 mGycm Automated exposure control for dose reduction was used. CONTRAST: Performed with IV Contrast, patient injected with 100 mL of Isovue 300. Images obtained from the diaphragm to the floor the pelvis with IV contrast. Lung bases are clear of consolidation. There is no pleural effusion. Heart size is normal. There is n o pericardial effusion. Liver spleen stomach pancreas gallbladder appear normal. The bile ducts are not dilated. There is no adrenal mass. Kidneys show contrast opacification. There is decreased cortical enhancemen t in the upper pole of the right kidney that measures 3.5 cm. Delayed images show normal renal excret ion. There is minimal fat stranding at the upper pole of the right kidney. There is no retroperitoneal adenopathy. Bladder distends smoothly. There is no inguinal hernia. There is no free fluid in the pelvis. Appendix is medial and appears normal. There is no mesenteric edema. There is no ascites or free air. There is no bowel obstruction. Lumbar vertebra have normal alignment. Posterior elements are intact. The bony pelvis is intact. Ther e is no lumbar compression fracture. The hip joints are intact. IMPRESSION: There is mass in the upper pole of the right kidney with decreased enhancement and surrounding mild f at stranding. This probably relates to acute pyelonephritis. There is 9 mm central component that cou ld be small abscess. Normal appendix.
[2020-07-10] MEDS ORDERED: INSULIN REGULAR 100 UNIT/ML VIAL SQ ONE (00:09)
[2020-07-10] MEDS ORDERED: cefTRIAXone IN SWFI 1,000 MG/10 ML SYRINGE IVP STA (00:09)
[2020-07-10] MEDS ORDERED: SODIUM CHLORIDE 0.9% 1,000 ML IV ONE (00:12)
[2020-07-10] MEDS ORDERED: KETOROLAC 15 MG/ML 1 ML VIAL IVP STA (00:13)
[2020-07-10] MEDS ORDERED: ONDANSETRON 4 MG/2 ML VIAL IVP PRN (00:33)
[2020-07-10] MEDS ORDERED: AZITHROMYCIN 500 MG TAB PO STA (00:33)
[2020-07-10 00:59] LABS: Glucose,Whole Blood 306 mg/dL (75-99)
[2020-07-10 07:48] LABS: Glucose,Whole Blood 199 mg/dL (75-99)
[2020-07-10] MEDS: INSULIN ASPART (NovoLOG) 100 UNIT/ML VIAL SQ SCH ×4 (08:09→20:56)
[2020-07-10 11:50] LABS: Glucose,Whole Blood 271 mg/dL (75-99)
--- NOTE | 2020-07-10 16:11 | P.HPIM ---
History of Present Illness H&P Date: 07/10/20 Chief Complaint: Hyperglycemic, abd pain History and Physical and Discharge Summary This is a 30-year-old gentleman with past medical history of diabetes mellitus, noncompliant. Reports he ran out of his insulin over a week ago. Did not not nataly PCPs office. Presented to the ER with right flank abdominal pain, nausea without emesis, no fevers. Afebrile, WBC elevated 16.5, sodium 131, BUN 17, creatinine 0.53, blood sugar on admission 4:15 currently down to 200. Alk phos 128. UA negative for leukocytes, nitrates, 1+ ketone, 4+ glucose, trace protein with a specific gravity 1.045. KUB reportedly nonacute abdomen, no change. CT of abdomen and pelvis reporting mass in the upper pole of the right kidney with decreased enhancement and surrounding fat stranding probably acute pyelonephritis, 9 mm central component-possible abscess Review of Systems ROS Statement: Those systems with pertinent positive or pertinent negative responses have been documented in the HPI. ROS Other: All systems not noted in ROS Statement are negative. Past Medical History Past Medical History: Diabetes Mellitus, GERD/Reflux History of Any Multi-Drug Resistant Organisms: MRSA Date of last positivie culture/infection: 03/24/19 MDRO Source:: Abdomen Past Surgical History: No Surgical Hx Reported Past Psychological History: No Psychological Hx Reported Additional Psychological History / Comment(s): and lives with his , both appear to be with challenges. it is related that the mother is the guardian. has performed from smoking. No recreational drug use. No animals in the home Smoking Status: Current some day smoker Past Alcohol Use History: None Reported Past Drug Use History: None Reported Medications and Allergies Home Medications Medication Instructions Recorded Confirmed Type Cefuroxime Axetil [Ceftin] 500 mg PO BID 1 Days #20 tab 07/10/20 Rx Famotidine [Pepcid] 20 mg PO BID #60 tablet 07/10/20 Rx Insulin Glargine,Hum.rec.anlog 40 unit SQ 2100 #1 syr 07/10/20 Rx [Basaglar Kwikpen U-100] Allergies Allergy/AdvReac Type Severity Reaction Status Date / Time No Known Allergies Allergy Verified 07/10/20 11:22 Physical Exam Vitals: Vital Signs Temp Pulse Pulse Resp BP BP Pulse Ox 07/10/20 08:00 97.9 F 70 16 121/76 98 07/10/20 00:34 98.3 F 16 99 07/09/20 20:01 98.2 F 99 18 127/71 97 Intake and Output 07/09/20 07/10/20 07/10/20 22:59 06:59 14:59 Intake Total 150 Balance 150 Intake: Oral 150 Other: Weight 95.254 kg 95.254 kg - Exam GENERAL: Alert and oriented 3, no acute distress HEAD: Atraumatic, normocephalic. EYES: Pupils equal round and reactive to light, extraocular movements intact, sclera anicteric, conjunctiva are normal. ENT:nares patent. NECK: Normal range of motion, supple, no thyromegaly, no lymphadenopathy LUNGS: Breath sounds clear to auscultation bilaterally and equal. No wheezes rales or rhonchi. HEART: Regular rate and rhythm without murmurs, rubs or gallops.S1S2 Normal ABDOMEN: Soft, right-sided flank pain radiating to suprapubic, normoactive bowel sounds. No guarding, no rebound. No masses appreciated. EXTREMITIES: Normal range of motion, no pitting or edema. No clubbing or cyanosis. NEUROLOGICAL: Cranial nerves II through XII grossly intact. PSYCH: Normal affect, normal mood, appears mildly mentally challenged. Results CBC & Chem 7: 07/09/20 20:12 07/09/20 20:12 Labs: Abnormal Lab Results - Last 24 Hours (Table) 07/09/20 07/09/20 07/09/20 Range/Units 20:12 20:12 20:12 WBC 16.5 H (3.8-10.6) k/uL Neutrophils # 11.9 H (1.3-7.7) k/uL Monocytes # 1.3 H (0-1.0) k/uL Sodium 131 L (137-145) mmol/L Creatinine 0.53 L (0.66-1.25) mg/dL Glucose 415 H (74-99) mg/dL POC Glucose (mg/dL) (75-99) mg/dL Alkaline Phosphatase 128 H (38-126) U/L Ur Specific [place] 1.045 H (1.001-1.035) Urine Protein Trace H (Negative) Urine Glucose (UA) 4+ H (Negative) Urine Ketones 1+ H (Negative) 07/10/20 07/10/20 Range/Units 00:58 07:45 WBC (3.8-10.6) k/uL Neutrophils # (1.3-7.7) k/uL Monocytes # (0-1.0) k/uL Sodium (137-145) mmol/L Creatinine (0.66-1.25) mg/dL Glucose (74-99) mg/dL POC Glucose (mg/dL) 306 H 199 H (75-99) mg/dL Alkaline Phosphatase (38-126) U/L Ur Specific [place] (1.001-1.035) Urine Protein (Negative) Urine Glucose (UA) (Negative) Urine Ketones (Negative) Microbiology - Last 24 Hours (Table) 07/10/20 02:34 Urine Culture - Preliminary Urine,Clean Catch Thrombosis Risk Factor Assmnt - Choose All That Apply Any of the Below Risk Factors Present?: No Other Risk Factors: No Other congenital or acquired thrombophilia - If yes, enter type in comment: No Thrombosis Risk Factor Assessment Level: Very Low Risk Assessment and Plan Assessment: -Right flank abdominal pain . CT reporting mass in the upper pole of the right kidney with decreased enhancement and surrounding fat stranding probably acute pyelonephritis, 9 mm central component-possible abscess. -Diabetes mellitus, noncompliant. Hyperglycemic on admission, ran out of insulin, did not notify PCPs office. A1c pending Plan: Continue on current medication regime ,monitoring and symptomatic treatment. Continue on IV fluid hydration, IV antibiotics. Hemoglobin A1c ordered. Patient states he has no money for his insulin or his discharge antibiotic, discussing with pharmacy with case management assisting. Patient instructed to notify PCPs office any time running out of medication as samples can be provided. Discharge planning in progress pending urology evaluation, final DC recommendations and clearance. Patient will be discharged home today in a stable condition with guarded prognosis. Discharge Medication List Cefuroxime Axetil [Ceftin] 500 mg PO BID 1 Days #20 tab 07/10/20 [Rx] Famotidine [Pepcid] 20 mg PO BID #60 tablet 07/10/20 [Rx] Insulin Glargine,Hum.rec.anlog [Basaglar Kwikpen U-100] 40 unit SQ 2100 #1 syr 07/10/20 [Rx] The impression and plan of care has been dictated as directed. : I performed a history and examination of this patient, discussed the same with the dictator. I agree with the dictator's note ,documented as a scribe. Any additional findings or plans will be noted.
[2020-07-10] MEDS: PANTOPRAZOLE 40 MG/10 ML VIAL IVP SCH (16:23)
--- NOTE | 2020-07-10 16:29 | P.GSCN ---
History of Present Illness Consult date: 07/10/20 Reason for Consult: right sided pyelonephritis History of present illness: 30-year-old male presented to the hospital with right-sided flank pain, with radiation to the groin. He underwent a CT abdomen/pyelonephritis pole, possible 9 mm right renal abscess. He denies any dysuria, gross hematuria or N/V. No previous history of kidney stones, renal abscess, or UTIs, no history of IVDA. No history of trauma. No family history of renal cell carcinoma. He indicated since admission his pain has improved, on presentation his white coun t was 16.5 Review of Systems - Constitutional Denies fever, Denies weight loss - EENT Ears, nose, mouth and throat: Denies dysphagia - Cardiovascular Denies chest pain, Denies shortness of breath - Respiratory Denies cough, Denies 7 - Gastrointestinal Reports as per HPI - Genitourinary Reports flank pain, Denies dysuria, Denies hematuria - Neurological Denies headaches, Denies syncope Past Medical History Past Medical History: Diabetes Mellitus, GERD/Reflux History of Any Multi-Drug Resistant Organisms: MRSA Year Discovered:: 03/24/19 MDRO Source:: Abdomen Past Surgical History: No Surgical Hx Reported Past Psychological History: No Psychological Hx Reported Additional Psychological History / Comment(s): and lives with his , both appear to be with challenges. it is related that the mother is the guardian. has performed from smoking. No recreational drug use. No animals in the home Smoking Status: Current some day smoker Past Alcohol Use History: None Reported Past Drug Use History: None Reported Medications and Allergies Home Medications Medication Instructions Recorded Confirmed Type Cefuroxime Axetil [Ceftin] 500 mg PO BID 1 Days #20 tab 07/10/20 Rx Famotidine [Pepcid] 20 mg PO BID #60 tablet 07/10/20 Rx RX: Insulin Glargine,Hum.rec.anlog 40 unit SQ 2100 #1 syr 07/10/20 Rx [Basaglar Kwikpen U-100] Allergies Allergy/AdvReac Type Severity Reaction Status Date / Time No Known Allergies Allergy Verified 07/10/20 11:22 Surgical - Exam Vital Signs Temp Pulse Resp BP Pulse Ox 98.2 F 99 18 127/71 97 07/09/20 20:01 07/09/20 20:01 07/09/20 20:01 07/09/20 20:01 07/09/20 20:01 - General well developed, well nourished, no distress, no pain - Eyes PERRL, normal ocular movement - ENT normal nares, normal mucosa - Respiratory normal expansion, normal respiratory effort - Abdomen Mild right-sided CVA tenderness Abdomen: soft, non tender, no distended - Psychiatric oriented to time, oriented to person, oriented to place, speech is normal Results - Labs 07/09/20 20:12 07/09/20 20:12 Abnormal Lab Results - Last 24 Hours (Table) 07/09/20 07/09/20 07/09/20 Range/Units 20:12 20:12 20:12 WBC 16.5 H (3.8-10.6) k/uL Neutrophils # 11.9 H (1.3-7.7) k/uL Monocytes # 1.3 H (0-1.0) k/uL Sodium 131 L (137-145) mmol/L Creatinine 0.53 L (0.66-1.25) mg/dL Glucose 415 H (74-99) mg/dL POC Glucose (mg/dL) (75-99) mg/dL Alkaline Phosphatase 128 H (38-126) U/L Ur Specific [place] 1.045 H (1.001-1.035) Urine Protein Trace H (Negative) Urine Glucose (UA) 4+ H (Negative) Urine Ketones 1+ H (Negative) 07/10/20 07/10/20 07/10/20 Range/Units 00:58 07:45 11:48 WBC (3.8-10.6) k/uL Neutrophils # (1.3-7.7) k/uL Monocytes # (0-1.0) k/uL Sodium (137-145) mmol/L Creatinine (0.66-1.25) mg/dL Glucose (74-99) mg/dL POC Glucose (mg/dL) 306 H 199 H 271 H (75-99) mg/dL Alkaline Phosphatase (38-126) U/L Ur Specific [place] (1.001-1.035) Urine Protein (Negative) Urine Glucose (UA) (Negative) Urine Ketones (Negative) Microbiology - Last 24 Hours (Table) 07/10/20 02:34 Urine Culture - Preliminary Urine,Clean Catch Diabetes panel 07/09/20 Range/Units 20:12 Sodium 131 L (137-145) mmol/L Potassium 4.4 (3.5-5.1) mmol/L Chloride 98 (98-107) mmol/L Carbon Dioxide 23 (22-30) mmol/L BUN 17 (9-20) mg/dL Creatinine 0.53 L (0.66-1.25) mg/dL Glucose 415 H (74-99) mg/dL Calcium 9.2 (8.4-10.2) mg/dL AST 27 (17-59) U/L ALT 19 (4-49) U/L Alkaline Phosphatase 128 H (38-126) U/L Total Protein 7.2 (6.3-8.2) g/dL Albumin 4.4 (3.5-5.0) g/dL Calcium panel 07/09/20 Range/Units 20:12 Calcium 9.2 (8.4-10.2) mg/dL Albumin 4.4 (3.5-5.0) g/dL Pituitary panel 07/09/20 Range/Units 20:12 Sodium 131 L (137-145) mmol/L Potassium 4.4 (3.5-5.1) mmol/L Chloride 98 (98-107) mmol/L Carbon Dioxide 23 (22-30) mmol/L BUN 17 (9-20) mg/dL Creatinine 0.53 L (0.66-1.25) mg/dL Glucose 415 H (74-99) mg/dL Calcium 9.2 (8.4-10.2) mg/dL Adrenal panel 07/09/20 Range/Units 20:12 Sodium 131 L (137-145) mmol/L Potassium 4.4 (3.5-5.1) mmol/L Chloride 98 (98-107) mmol/L Carbon Dioxide 23 (22-30) mmol/L BUN 17 (9-20) mg/dL Creatinine 0.53 L (0.66-1.25) mg/dL Glucose 415 H (74-99) mg/dL Calcium 9.2 (8.4-10.2) mg/dL Total Bilirubin 0.4 (0.2-1.3) mg/dL AST 27 (17-59) U/L ALT 19 (4-49) U/L Alkaline Phosphatase 128 H (38-126) U/L Total Protein 7.2 (6.3-8.2) g/dL Albumin 4.4 (3.5-5.0) g/dL - Imaging CT scan - abdomen: image reviewed (9 mm right-sided renal abscess) Assessment and Plan Assessment: 30-year-old male with history of uncontrolled diabetes, admitted to the hospital with a 9 mm right-sided renal abscess, his urine is negative. Hemodynamically stable, white count was 16 On presentation. Pain improved since admission Plan: I reviewed the CT the abscess is fairly small, no need for drainage Continue IV ceftriaxone Repeat CBC in a.m., if WBC is trending down and pain continues to improve then can be discharge home tomorrow with 14 days of PO Bactrim. We'll need a repeat CT as an outpatient to assess resolution of the renal abscess Obtain a bladder scan, given bladder distention
[2020-07-10 16:54] LABS: Glucose,Whole Blood 238 mg/dL (75-99)
[2020-07-10] MEDS: INSULIN DETEMIR (LEVEMIR) 100 UNIT/ML SYR SQ SCH (16:55)
[2020-07-10 18:40] LABS: Hemoglobin A1C 13.3 % (4.0-6.0)
[2020-07-10 20:10] LABS: Glucose,Whole Blood 280 mg/dL (75-99)
[2020-07-11 06:59] LABS: Glucose,Whole Blood 207 mg/dL (75-99)
[2020-07-11] MEDS ORDERED: INSULIN DETEMIR (LEVEMIR) 100 UNIT/ML SYR SQ SCH (07:00)
[2020-07-11] MEDS: INSULIN ASPART (NovoLOG) 100 UNIT/ML VIAL SQ SCH (07:18)
[2020-07-11] MEDS: PANTOPRAZOLE 40 MG/10 ML VIAL IVP SCH (07:18)
[2020-07-11] MEDS: INSULIN DETEMIR (LEVEMIR) 100 UNIT/ML SYR SQ SCH (07:18)
--- NOTE | 2020-07-11 07:45 | P.PN ---
Subjective Progress Note Date: 07/11/20 Principal diagnosis: Hyperglycemia, right flank abdominal pain 29-year-old male gentleman presented emergency room with right flank abdominal pain and nausea without emesis. He is afebrile with oral temperature of 98.2, pulse rate is 74, blood pressure 114/67, he was satting 100% on room air. His past medical history of being noncompliant with his diabetes. His initial blood work CBC had a white blood cell count 16.5 hemoglobin of 15.7 hematocrit 44.5, platelet count 321, neutrophils 11.9, and a monocyte of 1.3. Chemistry reveals sodium 131, electrolytes were normal, P1 is 17 and a creatinine of 0.53, his blood sugar was noted to be 4:[address] was completed reporting a mass in the upper pole of the right kidney with decreased enhancement surrounding fat straining probably acute pyelonephritis, there is a 9 mm central component possible abscess. Surgery was consult it to evaluate mass and as it is fairly small no need for drain at this time and will continue on IV antibiotics. Currently waiting for a.m. CBC for possible discharge home later today. Currently patient is laying in bed resting comfortably with no complaints of pain or difficulty breathing at this time, vital signs stable as he is afebrile with a temperature of 97.9, pulse rate of 85, respiratory 18, blood pressure 123/83, room air and maintaining oxygen saturation 97%. Objective - Vital Signs Vital signs: Vital Signs Temp 97.9 F 07/11/20 02:00 Pulse 85 07/11/20 02:00 Resp 18 07/11/20 02:00 BP 123/83 07/11/20 02:00 Pulse Ox 97 07/11/20 02:00 Intake & Output 07/10/20 07/11/20 07/11/20 18:59 06:59 18:59 Intake Total 500 Balance 500 Intake: IV 500 Sodium Chloride 0.9% 1, 500 000 ml @ 100 mls/hr IV . Q10H ONE Rx#:[id number] Other: # Voids 2 - Exam GENERAL: Well-appearing, well-nourished and in no acute distress. HEAD: Atraumatic, normocephalic. EYES: Pupils equal round and reactive to light, extraocular movements intact, sclera anicteric, conjunctiva are normal. ENT:nares patent, oropharynx clear without exudates. Moist mucous membranes. NECK: Normal range of motion, supple without lymphadenopathy or JVD, no thyromegaly LUNGS: Breath sounds clear to auscultation bilaterally and equal. No wheezes rales or rhonchi. HEART: Regular rate and rhythm without murmurs, rubs or gallops.S1S2 Normal ABDOMEN: Soft, nontender, normoactive bowel sounds. No guarding, no rebound. No masses appreciated. EXTREMITIES: Normal range of motion, no pitting or edema. No clubbing or cyanosis. NEUROLOGICAL: Cranial nerves II through XII grossly intact. Normal speech, normal gait. PSYCH: Normal mood, normal affect. SKIN: Warm, Dry, normal turgor, no rashes or lesions noted. - Labs CBC & Chem 7: 07/09/20 20:12 07/09/20 20:12 Labs: Abnormal Lab Results - Last 24 Hours (Table) 07/09/20 07/10/20 07/10/20 Range/Units 20:12 07:45 11:48 POC Glucose (mg/dL) 199 H 271 H (75-99) mg/dL Hemoglobin A1c 13.3 H (4.0-6.0) % 07/10/20 07/10/20 07/11/20 Range/Units 16:52 20:09 06:51 POC Glucose (mg/dL) 238 H 280 H 207 H (75-99) mg/dL Hemoglobin A1c (4.0-6.0) % Microbiology - Last 24 Hours (Table) 07/10/20 02:34 Urine Culture - Preliminary Urine,Clean Catch Assessment and Plan (1) Abdominal pain Current Visit: Yes Status: Acute Code(s): R10.9 - UNSPECIFIED ABDOMINAL PAIN SNOMED Code(s): 29472172 (2) Acute pyelonephritis Current Visit: Yes Status: Acute Code(s): N10 - ACUTE PYELONEPHRITIS SNOMED Code(s): 34505536 (3) Diabetes mellitus Current Visit: Yes Status: Acute Code(s): E11.9 - TYPE 2 DIABETES MELLITUS WITHOUT COMPLICATIONS SNOMED Code(s): 06139574 (4) Hyperglycemia Current Visit: Yes Status: Acute Code(s): R73.9 - HYPERGLYCEMIA, UNSPECIFIED SNOMED Code(s): 57360248 (5) Type 2 diabetes mellitus with hyperglycemia Current Visit: Yes Status: Acute Code(s): E11.65 - TYPE 2 DIABETES MELLITUS WITH HYPERGLYCEMIA SNOMED Code(s): 987875332861353 Plan: Continue IV antibiotics (ceftriaxone) and discharge we'll convert to Bactrim for 14 day course. Regarding discharge we will await results for CBC We will discuss CT at a later date to assess for resolution of renal abscess We'll continue to follow closely with planned discharge later today. Time with Patient: Greater than 30
[2020-07-11 08:58] LABS: Basophils # (A) 0.1 k/uL (0-0.2); Basophils % (A) 0 %; Eosinophils # (A) 0.4 k/uL (0-0.7); Eosinophils % (A) 3 %; HCT 42.4 % (39.0-53.0); HGB 13.8 gm/dL (13.0-17.5); Lymphocytes % (A) 14 %; MCH 28.2 pg (25.0-35.0); MCHC 32.6 g/dL (31.0-37.0); MCV 86.3 fL (80.0-100.0); Mean Platelet Volume 6.5; Monocytes # (A) 1.2 k/uL (0-1.0); Monocytes % (A) 8 %; Neutrophils # (A) 10.7 k/uL (1.3-7.7); Neutrophils % (A) 74 %; Platelet Count 296 k/uL (150-450); RBC 4.91 m/uL (4.30-5.90); RDW 13.4 % (11.5-15.5); WBC 14.5 k/uL (3.8-10.6)
[2020-07-11 09:03] VITALS: BP 127/79; PULSE 84; RESP 16; TEMP 99.2
[2020-07-11 09:10] LABS: African American GFR (CKD) >90 (>60 ml/min/1.73 sqM); Anion Gap 7 mmol/L; Blood Urea Nitrogen 8 mg/dL (9-20); Calcium 8.9 mg/dL (8.4-10.2); Carbon Dioxide 29 mmol/L (22-30); Chloride 101 mmol/L (98-107); Glucose 242 mg/dL (74-99); Non-African American GFR(CKD) >90 (>60 ml/min/1.73 sqM); Potassium 4.4 mmol/L (3.5-5.1); Sodium 137 mmol/L (137-145)
--- NOTE | 2020-07-11 10:36 | P.PN ---
Subjective Progress Note Date: 07/11/20 No acute overnight events, pain is controlled, WBC is down to 14.5, he remains afebrile Objective - Vital Signs Vital signs: Vital Signs Temp 99.2 F 07/11/20 07:00 Pulse 84 07/11/20 08:00 Resp 16 07/11/20 08:00 BP 127/79 07/11/20 07:00 Pulse Ox 98 07/11/20 07:00 Intake & Output 07/10/20 07/11/20 07/11/20 18:59 06:59 18:59 Intake Total 500 Balance 500 Intake: IV 500 Sodium Chloride 0.9% 1, 500 000 ml @ 100 mls/hr IV . Q10H ONE Rx#:[id number] Other: # Voids 2 - Constitutional General appearance: Present: no acute distress - Psychiatric Psychiatric: Present: A&O x's 3 - Labs CBC & Chem 7: 07/11/20 08:43 07/11/20 08:43 Labs: Abnormal Lab Results - Last 24 Hours (Table) 07/09/20 07/10/20 07/10/20 Range/Units 20:12 11:48 16:52 WBC (3.8-10.6) k/uL Neutrophils # (1.3-7.7) k/uL Monocytes # (0-1.0) k/uL BUN (9-20) mg/dL Glucose (74-99) mg/dL POC Glucose (mg/dL) 271 H 238 H (75-99) mg/dL Hemoglobin A1c 13.3 H (4.0-6.0) % 07/10/20 07/11/20 07/11/20 Range/Units 20:09 06:51 08:43 WBC 14.5 H (3.8-10.6) k/uL Neutrophils # 10.7 H (1.3-7.7) k/uL Monocytes # 1.2 H (0-1.0) k/uL BUN (9-20) mg/dL Glucose (74-99) mg/dL POC Glucose (mg/dL) 280 H 207 H (75-99) mg/dL Hemoglobin A1c (4.0-6.0) % 07/11/20 Range/Units 08:43 WBC (3.8-10.6) k/uL Neutrophils # (1.3-7.7) k/uL Monocytes # (0-1.0) k/uL BUN 8 L (9-20) mg/dL Glucose 242 H (74-99) mg/dL POC Glucose (mg/dL) (75-99) mg/dL Hemoglobin A1c (4.0-6.0) % Microbiology - Last 24 Hours (Table) 07/10/20 02:34 Urine Culture - Preliminary Urine,Clean Catch Assessment and Plan Assessment: 30-year-old male with history of uncontrolled diabetes, admitted to the hospital with a 9 mm right-sided renal abscess, his urine is negative. Hemodynamically stable, white count was 16 On presentation. Pain improved since admission Plan: I reviewed the CT the abscess is fairly small, no need for drainage Continue IV ceftriaxone Okay for discharge from urology standpoint, will discharge with 14 days of Bactrim, can follow-up as an outpatient in 2-3 weeks, will need a repeat CT to assess resolution of the abscess
--- NOTE | 2020-07-11 11:01 | P.DS ---
Providers Date of admission: 07/10/20 00:14 Expected date of discharge: 07/11/20 Attending physician: Doug Velazquez Consults: 07/10/20 08:55 Consult Physician Routine Consulting Provider: Shabbir Ulloa Consult Reason/Comments: pyelonephritis Do you want consulting provider notified?: Yes Primary care physician: [facility] Course: 19-year-old male gentleman presented emergency room with right flank abdominal pain and nausea without emesis. He is afebrile with oral temperature of 98.2, pulse rate is 74, blood pressure 114/67, he was satting 100% on room air. His past medical history of being noncompliant with his diabetes. His initial blood work CBC had a white blood cell count 16.5 hemoglobin of 15.7 hematocrit 44.5, platelet count 321, neutrophils 11.9, and a monocyte of 1.3. Chemistry reveals sodium 131, electrolytes were normal, P1 is 17 and a creatinine of 0.53, his blood sugar was noted to be 4:[address] was completed reporting a mas s in the upper pole of the right kidney with decreased enhancement surrounding fat straining probably acute pyelonephritis, there is a 9 mm central component possible abscess. Surgery was consult it to evaluate mass and as it is fairly small no need for drain at this time and will continue on IV antibiotics. Currently waiting for a.m. CBC for possible discharge home later today. Currently patient is laying in bed resting comfortably with no complaints of pain or difficulty breathing at this time, vital signs stable as he is afebrile with a temperature of 97.9, pulse rate of 85, respiratory 18, blood pressure 123/83, room air and maintaining oxygen saturation 97%. He was cleared by urology for discharge. His WBC count is down from 16.5 14.5. He has no pain. He'll follow-up with urology outpatient. Follow up for CT in 1 week. He'll be started on Bactrim and Roxanol patient. He'll be given a prescription for Lantus. Follow-up in the office soon. Objective Patient Condition at Discharge: Fair Plan - Discharge Summary New Discharge Prescriptions: New Cefuroxime Axetil [Ceftin] 500 mg PO BID 1 Days #20 tab Sulfamethox-Tmp 800-160Mg [Bactrim DS 800-160 mg] 1 tab PO Q12HR 14 Days #28 tab Famotidine [Pepcid] 20 mg PO BID #60 tablet Continue Insulin Glargine,Hum.rec.anlog [Basaglar Kwikpen U-100] 40 unit SQ 2100 #1 syr Discharge Medication List Cefuroxime Axetil [Ceftin] 500 mg PO BID 1 Days #20 tab 07/10/20 [Rx] Famotidine [Pepcid] 20 mg PO BID #60 tablet 07/10/20 [Rx] Insulin Glargine,Hum.rec.anlog [Basaglar Kwikpen U-100] 40 unit SQ 2100 #1 syr 07/10/20 [Rx] Sulfamethox-Tmp 800-160Mg [Bactrim DS 800-160 mg] 1 tab PO Q12HR 14 Days #28 tab 07/10/20 [Rx] Follow up Appointment(s)/Referral(s): Doug Velazquez Jr, [Primary Care Provider] - 3 Days Cesar Lira MD [STAFF PHYSICIAN] - 3 Weeks Activity/Diet/Wound Care/Special Instructions: Final urine culture results & HGBA1c results to be faxed to PCP. Spoke with pharmacy, insulin converted to Lantus which is covered. Discharge Disposition: HOME SELF-CARE
[2020-07-11 11:13] LABS: Glucose,Whole Blood 276 mg/dL (75-99)
[2020-07-11 15:08] LABS: C. trachomatis,PCR Negative (Neg,Equiv); Chlamydia trachomatis Source Urine; N. gonorrhoeae,PCR Negative (Neg,Equiv); Neisseria Source Urine
== END 2020-07-11 11:34 | disposition home or self-care (01) ==
LOC: EC 19:42 → 1SOBS 07-10 00:14
PROVIDERS: ADMIT Family Medicine; ATTEND Family Medicine
DX: N28.89 Other specified disorders of kidney and ureter (principal); E11.65 Type 2 diabetes mellitus with hyperglycemia; Z91.19 Patient's noncompliance with other medical treatment and regimen; R10.9 Unspecified abdominal pain; R11.0 Nausea; K21.9 Gastro-esophageal reflux disease without esophagitis; F17.200 Nicotine dependence, unspecified, uncomplicated; Z79.4 Long term (current) use of insulin; Z79.899 Other long term (current) drug therapy; Z86.14 Personal history of Methicillin resistant Staphylococcus aureus infection
CPT/HCPCS: 96361 ×3; 96366 ×2; 96375 ×3; 96365; 99285; 36415; 80053; 80048; 82150; 83605; 83690; 85025 ×2; 81003; 87491; 87591; 87086; 83036; 74018; 74177; G0378 ×2; J2270; J2405; J0696 ×3; J1885; C9113 ×2; Q9967

== ENCOUNTER 2020-08-05 15:37 | Emergency (ER) | payer OTHER ==
[2020-08-05 15:57] VITALS: RESP 18; TEMP 99.2
[2020-08-05] MEDS ORDERED: SODIUM CHLORIDE 0.9% 1,000 ML IV STA (16:38)
[2020-08-05] MEDS ORDERED: ONDANSETRON 4 MG/2 ML VIAL IVP STA (16:38)
[2020-08-05] MEDS ORDERED: MORPHINE SULFATE 4 MG/ML SYRINGE IVP STA (16:38)
[2020-08-05 16:44] LABS: Glucose,Whole Blood 232 mg/dL (75-99)
--- NOTE | 2020-08-05 16:52 | ED ---
Abdominal Pain HPI - General Chief Complaint: Abdominal Pain Stated Complaint: abd pain Time Seen by Provider: 08/05/20 16:28 Source: patient Mode of arrival: ambulatory Limitations: no limitations - History of Present Illness Initial Comments: Patient is a 30-year-old male with history of diabetes, presenting to the emergency Department with complaints of severe abdominal pain, nausea and vomiting started early this morning. He states he is unable to keep any solids or liquids down. He has been checking his glucose levels and states has been getting higher over the past week. He describes the pain as around his umbilical area but also radiates to either side of his belly, he points to his hold abdomen region. He currently rates the pain at 10/10 but is sitting on the bed calmly. He denies any diarrhea, no chest pain or shortness of breath. He denies any fevers or chills. He denies any history of abdominal surgeries. He denies any dysuria. He has no further complaints at this time. Upon arrival to the ER, he is slightly tachycardia at 114, restless vitals are normal. - Related Data Previous Rx's Medication Instructions Recorded Cefuroxime Axetil [Ceftin] 500 mg PO BID 1 Days #20 tab 07/10/20 Famotidine [Pepcid] 20 mg PO BID #60 tablet 07/10/20 Insulin Glargine,Hum.rec.anlog 40 unit SQ 2100 #1 syr 07/10/20 [Basaglar Kwikpen U-100] Sulfamethox-Tmp 800-160Mg [Bactrim 1 tab PO Q12HR 14 Days #28 tab 07/10/20 DS 800-160 mg] Ondansetron Odt [Zofran Odt] 4 mg PO Q8HR PRN #10 tab 08/05/20 Allergies Allergy/AdvReac Type Severity Reaction Status Date / Time No Known Allergies Allergy Verified 08/05/20 15:55 Review of Systems ROS Statement: Those systems with pertinent positive or pertinent negative responses have been documented in the HPI. ROS Other: All systems not noted in ROS Statement are negative. Past Medical History Past Medical History: Diabetes Mellitus, GERD/Reflux History of Any Multi-Drug Resistant Organisms: MRSA Date of last positivie culture/infection: 03/24/19 MDRO Source:: Abdomen Past Surgical History: No Surgical Hx Reported Past Psychological History: No Psychological Hx Reported Smoking Status: Current some day smoker Past Alcohol Use History: None Reported Past Drug Use History: None Reported General Exam - General Exam Comments Initial Comments: GENERAL: Patient is well-developed and well-nourished. Patient is nontoxic and in mild distress. HEAD: Atraumatic, normocephalic. EYES: Pupils equal round and reactive to light, extraocular movements intact, sclera anicteric, conjunctiva are normal. Eyelids were unremarkable. ENT: TMs normal, nares patent, oropharynx clear without exudates. Moist mucous membranes. NECK: Normal range of motion, supple without lymphadenopathy or JVD. LUNGS: Unlabored respirations. Breath sounds clear to auscultation bilaterally and equal. No wheezes rales or rhonchi. HEART: Regular rate and rhythm without murmurs, rubs or gallops. ABDOMEN: Soft, generalized abdominal tenderness on palpation, no specific area pain, normoactive bowel sounds. No guarding, no rebound. No masses appreciated. : Deferred MUSCULOSKELETAL: Normal extremities with adequate strength and normal range of motion, no pitting or edema. No clubbing or cyanosis. NEUROLOGICAL: Patient is alert and oriented x 3. Motor and sensory are also intact. Cranial nerves II through XII grossly intact. Symmetrical smile. Normal speech, normal gait. PSYCH: Normal mood, normal affect. SKIN: Warm, Dry, normal turgor, no rashes or lesions noted. Limitations: no limitations Course Vital Signs 08/05/20 08/05/20 15:55 19:47 Temperature 99.2 F Pulse Rate 114 H 93 Respiratory 18 18 Rate Blood Pressure 116/80 126/74 O2 Sat by Pulse 96 96 Oximetry Medical Decision Making - Medical Decision Making Patient is a 30-year-old male with history of diabetes, presenting with 1 day of abdominal pain and vomiting. He has tachycardia upon arrival, afebrile. His belly is tender all over, no specific area pain. His initial glucose was 232. Patient's labs show white count 16.8, feeling this is most likely reactive from vomiting, he has no fevers, due for not feeling this is infectious in nature, lactic acid is 1.4, urine has 4+ glucose, normal ketones, no bacteria. Acetone is negative. CT of the abdomen and pelvis was obtained secondary to severe pain, this is negative, normal appendix, no acute abnormalities. Patient was given fluids, Zofran and pain control, upon reexamination he is found sleeping, he states he is pain-free and is ready be discharged. I discussed with him his symptoms could be viral in nature. I recommended checking his glucose levels, following up with his PCP. Return parameters were discussed with the patient he verbalizes understanding. Case discussed with Dr. Brush. - Lab Data Result diagrams: 08/05/20 16:47 08/05/20 16:47 Lab Results 08/05/20 08/05/20 08/05/20 Range/Units 16:42 16:47 16:47 WBC 16.8 H (3.8-10.6) k/uL RBC 5.87 (4.30-5.90) m/uL Hgb 16.5 (13.0-17.5) gm/dL Hct 50.4 (39.0-53.0) % MCV 86.0 (80.0-100.0) fL MCH 28.2 (25.0-35.0) pg MCHC 32.8 (31.0-37.0) g/dL RDW 13.2 (11.5-15.5) % Plt Count 310 (150-450) k/uL MPV 6.4 Neutrophils % 87 % Lymphocytes % 5 % Monocytes % 5 % Eosinophils % 2 % Basophils % 0 % Neutrophils # 14.6 H (1.3-7.7) k/uL Lymphocytes # 0.9 L (1.0-4.8) k/uL Monocytes # 0.8 (0-1.0) k/uL Eosinophils # 0.4 (0-0.7) k/uL Basophils # 0.0 (0-0.2) k/uL Sodium (137-145) mmol/L Potassium (3.5-5.1) mmol/L Chloride (98-107) mmol/L Carbon Dioxide (22-30) mmol/L Anion Gap mmol/L BUN (9-20) mg/dL Creatinine (0.66-1.25) mg/dL Est GFR (CKD-EPI)AfAm (>60 ml/min/1.73 sqM) Est GFR (CKD-EPI)NonAf (>60 ml/min/1.73 sqM) Glucose (74-99) mg/dL POC Glucose (mg/dL) 232 H (75-99) mg/dL POC Glu [employer] ID Augustine Molina Plasma Lactic Acid Jesu (0.7-2.0) mmol/L Calcium (8.4-10.2) mg/dL Total Bilirubin (0.2-1.3) mg/dL AST (17-59) U/L ALT (4-49) U/L Alkaline Phosphatase (38-126) U/L Total Protein (6.3-8.2) g/dL Albumin (3.5-5.0) g/dL Amylase (30-110) U/L Lipase (23-300) U/L Urine Color Light Yellow Urine Appearance Clear (Clear) Urine pH 6.0 (5.0-8.0) Ur Specific Marshall >1.050 H (1.001-1.035) Urine Protein Trace H (Negative) Urine Glucose (UA) 4+ H (Negative) Urine Ketones Negative (Negative) Urine Blood Negative (Negative) Urine Nitrite Negative (Negative) Urine Bilirubin Negative (Negative) Urine Urobilinogen <2.0 (<2.0) mg/dL Ur Leukocyte Esterase Negative (Negative) Acetone, Qual (Negative) 08/05/20 08/05/20 Range/Units 16:47 16:47 WBC (3.8-10.6) k/uL RBC (4.30-5.90) m/uL Hgb (13.0-17.5) gm/dL Hct (39.0-53.0) % MCV (80.0-100.0) fL MCH (25.0-35.0) pg MCHC (31.0-37.0) g/dL RDW (11.5-15.5) % Plt Count (150-450) k/uL MPV Neutrophils % % Lymphocytes % % Monocytes % % Eosinophils % % Basophils % % Neutrophils # (1.3-7.7) k/uL Lymphocytes # (1.0-4.8) k/uL Monocytes # (0-1.0) k/uL Eosinophils # (0-0.7) k/uL Basophils # (0-0.2) k/uL Sodium 135 L (137-145) mmol/L Potassium 4.3 (3.5-5.1) mmol/L Chloride 99 (98-107) mmol/L Carbon Dioxide 25 (22-30) mmol/L Anion Gap 11 mmol/L BUN 15 (9-20) mg/dL Creatinine 0.53 L (0.66-1.25) mg/dL Est GFR (CKD-EPI)AfAm >90 (>60 ml/min/1.73 sqM) Est GFR (CKD-EPI)NonAf >90 (>60 ml/min/1.73 sqM) Glucose 258 H (74-99) mg/dL POC Glucose (mg/dL) (75-99) mg/dL POC Glu [employer] ID Plasma Lactic Acid Jesu 1.4 (0.7-2.0) mmol/L Calcium 9.4 (8.4-10.2) mg/dL Total Bilirubin 0.9 (0.2-1.3) mg/dL AST 22 (17-59) U/L ALT 21 (4-49) U/L Alkaline Phosphatase 111 (38-126) U/L Total Protein 7.6 (6.3-8.2) g/dL Albumin 5.0 (3.5-5.0) g/dL Amylase 37 (30-110) U/L Lipase 82 (23-300) U/L Urine Color Urine Appearance (Clear) Urine pH (5.0-8.0) Ur Specific Marshall (1.001-1.035) Urine Protein (Negative) Urine Glucose (UA) (Negative) Urine Ketones (Negative) Urine Blood (Negative) Urine Nitrite (Negative) Urine Bilirubin (Negative) Urine Urobilinogen (<2.0) mg/dL Ur Leukocyte Esterase (Negative) Acetone, Qual Negative (Negative) Disposition Clinical Impression: Abdominal pain, Nausea & vomiting Disposition: HOME SELF-CARE Condition: Stable Instructions (If sedation given, give patient instructions): Abdominal Pain (ED ) Additional Instructions: Please return to the Emergency Department if symptoms worsen or any other concerns. Recommend increase fluid intake. Take Tylenol Motrin for any discomfort. Follow up with your PCP. Prescriptions: Ondansetron Odt [Zofran Odt] 4 mg PO Q8HR PRN #10 tab PRN Reason: Nausea Is patient prescribed a controlled substance at d/c from ED?: No Referrals: Doug Velazquez Jr, [Primary Care Provider] - 1-2 days Time of Disposition: 19:27
[2020-08-05 17:01] LABS: Basophils % (A) 0 %; Eosinophils # (A) 0.4 k/uL (0-0.7); Eosinophils % (A) 2 %; HCT 50.4 % (39.0-53.0); HGB 16.5 gm/dL (13.0-17.5); Lymphocytes # (A) 0.9 k/uL (1.0-4.8); Lymphocytes % (A) 5 %; MCH 28.2 pg (25.0-35.0); MCHC 32.8 g/dL (31.0-37.0); Mean Platelet Volume 6.4; Monocytes # (A) 0.8 k/uL (0-1.0); Monocytes % (A) 5 %; Neutrophils # (A) 14.6 k/uL (1.3-7.7); Neutrophils % (A) 87 %; Platelet Count 310 k/uL (150-450); RBC 5.87 m/uL (4.30-5.90); RDW 13.2 % (11.5-15.5); WBC 16.8 k/uL (3.8-10.6)
[2020-08-05 17:15] LABS: ALT 21 U/L (4-49); AST 22 U/L (17-59); African American GFR (CKD) >90 (>60 ml/min/1.73 sqM); Alkaline Phosphatase 111 U/L (38-126); Amylase 37 U/L (30-110); Anion Gap 11 mmol/L; Blood Urea Nitrogen 15 mg/dL (9-20); Calcium 9.4 mg/dL (8.4-10.2); Carbon Dioxide 25 mmol/L (22-30); Chloride 99 mmol/L (98-107); Glucose 258 mg/dL (74-99); Lipase 82 U/L (23-300); Non-African American GFR(CKD) >90 (>60 ml/min/1.73 sqM); Potassium 4.3 mmol/L (3.5-5.1); Sodium 135 mmol/L (137-145); Total Bilirubin 0.9 mg/dL (0.2-1.3); Total Protein 7.6 g/dL (6.3-8.2)
--- NOTE | 2020-08-05 18:52 | CT ---
EXAMINATION TYPE: CT abdomen pelvis w con DATE OF EXAM: 08/05/2020 COMPARISON: None HISTORY: Generalized abdominal pain with nausea and vomiting. CT DLP: 1016.8 mGycm Automated exposure control for dose reduction was used. CONTRAST: Performed with IV Contrast, patient injected with 100 mL of Isovue 300. Images obtained from the diaphragm to the floor the pelvis with IV contrast. Lung bases are clear of infiltrate. There is no pleural effusion. Heart size is normal. There is no p ericardial effusion. Liver spleen stomach pancreas gallbladder appear normal. The bile ducts are not dilated. There is no adrenal mass. Kidneys show satisfactory contrast opacification. There is no hydronephrosi s. Ureters are not dilated. Delayed images show normal renal excretion. There is no mesenteric edema. There is no ascites or free air. There is no bowel obstruction. Appendi x is posterior and appears normal. The bladder distends smoothly. There is no inguinal hernia. There is no free fluid in the pelvis. The re is no evidence of pelvic mass. Lumbar vertebra have normal alignment. There is no compression fracture. Disc spaces are normal. Bony pelvis is intact. Hip joints are intact. IMPRESSION: Negative CT scan abdomen and pelvis. Normal appendix.
[2020-08-05 19:04] LABS: Appearance,Urine Clear (Clear); Bilirubin,Urine Negative (Negative); Blood,Urine Negative (Negative); Color,Urine Light Yellow; Glucose,Urine (UA) 4+ (Negative); Ketones,Urine Negative (Negative); Leukocyte Esterase,Urine Negative (Negative); Nitrite,Urine Negative (Negative); Protein,Urine Trace (Negative); Specific Gravity,Urine >1.050 (1.001-1.035); Urobilinogen,Urine <2.0 mg/dL (<2.0)
[2020-08-05 19:49] VITALS: BP 126/74; PULSE 93
== END 2020-08-05 19:54 | disposition home or self-care (01) ==
LOC: EC 15:37
DX: R10.84 Generalized abdominal pain (principal); R11.2 Nausea with vomiting, unspecified; E11.9 Type 2 diabetes mellitus without complications; K21.9 Gastro-esophageal reflux disease without esophagitis; F17.200 Nicotine dependence, unspecified, uncomplicated; Z79.4 Long term (current) use of insulin
CPT/HCPCS: 36415; 80053; 82150; 82009; 83605; 83690; 85025; 81003; 74177; 99284; 96374; 96375; 96361 ×3; J2270; J2405; Q9967

== ENCOUNTER 2020-08-23 20:25 | Emergency (ER) | payer OTHER ==
[2020-08-23 20:31] VITALS: TEMP 97.9
[2020-08-23] MEDS ORDERED: MORPHINE SULFATE 4 MG/ML SYRINGE IV STA (20:38)
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
[2020-08-23 21:20] LABS: Basophils # (A) 0.1 k/uL (0-0.2); Basophils % (A) 1 %; Eosinophils # (A) 0.6 k/uL (0-0.7); Eosinophils % (A) 6 %; HCT 47.6 % (39.0-53.0); HGB 16.3 gm/dL (13.0-17.5); Lymphocytes # (A) 3.6 k/uL (1.0-4.8); Lymphocytes % (A) 34 %; MCH 29.3 pg (25.0-35.0); MCHC 34.2 g/dL (31.0-37.0); MCV 85.5 fL (80.0-100.0); Mean Platelet Volume 6.8; Monocytes # (A) 0.7 k/uL (0-1.0); Monocytes % (A) 6 %; Neutrophils # (A) 5.3 k/uL (1.3-7.7); Neutrophils % (A) 51 %; Platelet Count 368 k/uL (150-450); RBC 5.57 m/uL (4.30-5.90); RDW 12.4 % (11.5-15.5); WBC 10.4 k/uL (3.8-10.6)
[2020-08-23 21:25] LABS: INR 0.9 (<1.2); Partial Thromboplastin Time 22.2 sec (22.0-30.0); Prothrombin Time 10.2 sec (9.0-12.0)
[2020-08-23 21:32] LABS: Potassium 4.2 mmol/L (3.5-5.1)
[2020-08-23 21:33] LABS: ALT 20 U/L (4-49); AST 22 U/L (17-59); African American GFR (CKD) >90 (>60 ml/min/1.73 sqM); Albumin 5.3 g/dL (3.5-5.0); Alcohol <10 mg/dL; Alkaline Phosphatase 97 U/L (38-126); Anion Gap 13 mmol/L; Blood Urea Nitrogen 12 mg/dL (9-20); Calcium 10.1 mg/dL (8.4-10.2); Carbon Dioxide 27 mmol/L (22-30); Chloride 98 mmol/L (98-107); Glucose 277 mg/dL (74-99); Non-African American GFR(CKD) >90 (>60 ml/min/1.73 sqM); Sodium 138 mmol/L (137-145); Total Bilirubin 0.6 mg/dL (0.2-1.3); Total Protein 7.8 g/dL (6.3-8.2)
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
--- NOTE | 2020-08-23 22:44 | XR ---
EXAMINATION TYPE: XR shoulder complete RT DATE OF EXAM: 08/23/2020 COMPARISON: NONE HISTORY: Shoulder pain TECHNIQUE: 3 views FINDINGS: I see no fracture nor dislocation. Glenohumeral joint is intact. There are no pathologic ca lcifications. IMPRESSION: Negative right shoulder exam. No fracture.
--- NOTE | 2020-08-23 22:45 | XR ---
EXAMINATION TYPE: XR elbow complete RT DATE OF EXAM: 08/23/2020 COMPARISON: NONE HISTORY: Pain TECHNIQUE: 3 views FINDINGS: I see no fracture nor dislocation. Joint spaces are normal. There is no sign of elbow joint effusion. IMPRESSION: Negative right elbow exam. No fracture.
--- NOTE | 2020-08-23 22:46 | XR ---
EXAMINATION TYPE: XR hand limited LT DATE OF EXAM: 08/23/2020 COMPARISON: NONE HISTORY: Pain TECHNIQUE: 2 views FINDINGS: Metacarpals are intact. Fingers appear intact. I see no fracture nor dislocation. Carpal baron elsy are intact. IMPRESSION: Negative left hand exam. No fracture.
--- NOTE | 2020-08-23 22:47 | XR ---
EXAMINATION TYPE: XR knee complete RT DATE OF EXAM: 08/23/2020 COMPARISON: 02/01/2018 HISTORY: Pain TECHNIQUE: 3 views FINDINGS: I see no fracture nor dislocation. Joint spaces are normal. There is no sign of knee joint effusion. IMPRESSION: Negative right knee exam. No change.
[2020-08-23 23:02] VITALS: BP 118/83; PULSE 76; RESP 16
== END 2020-08-23 22:50 | disposition home or self-care (01) ==
LOC: EC 20:25
DX: R07.89 Other chest pain (principal); M25.511 Pain in right shoulder; M25.561 Pain in right knee; R51.9 Headache, unspecified; E11.9 Type 2 diabetes mellitus without complications; K21.9 Gastro-esophageal reflux disease without esophagitis; F17.200 Nicotine dependence, unspecified, uncomplicated; Z79.4 Long term (current) use of insulin; V89.2XXA Person injured in unspecified motor-vehicle accident, traffic, initial encounter; Y92.410 Unspecified street and highway as the place of occurrence of the external cause
CPT/HCPCS: 36415; 93005; 80053; 84484; 85025; 85610; 85730; 80320; 73030; 73080; 73120; 73562; 72125; 70450; 71260; 74177; 99284; 96374; J2270; Q9967

== ENCOUNTER 2020-09-30 21:43 | Emergency (ER) | payer OTHER ==
[2020-09-30 22:16] VITALS: RESP 18
[2020-09-30] MEDS ORDERED: DIPH,PERTUS(ACELL)TETVAC-LF 0.5 ML VIAL IM ONE (22:52)
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
[2020-09-30 23:16] VITALS: BP 115/78; PULSE 74; TEMP 97.9
== END 2020-09-30 23:15 | disposition home or self-care (01) ==
LOC: EC 21:43
DX: S61.512A Laceration without foreign body of left wrist, initial encounter (principal); E11.9 Type 2 diabetes mellitus without complications; K21.9 Gastro-esophageal reflux disease without esophagitis; F17.200 Nicotine dependence, unspecified, uncomplicated; Z79.4 Long term (current) use of insulin; Z79.899 Other long term (current) drug therapy; W26.8XXA Contact with other sharp object(s), not elsewhere classified, initial encounter
CPT/HCPCS: 90471; 90715; 99282